=== PATIENT | female | born 1940 | race Caucasian/White ===

== ENCOUNTER 2019-02-22 10:33 | Inpatient (IN) | payer BC, MEDICARE ==
--- NOTE | 2019-02-22 11:27 | XR ---
EXAMINATION TYPE: XR Hip Complete LT DATE OF EXAM: 02/22/2019 CLINICAL HISTORY: Left hip pain after injury TECHNIQUE: AP and frogleg views of the left hip are obtained. COMPARISON: None. FINDINGS: There is a subcapital left femoral neck fracture with very minimal impaction (overlap of 1 mm) and no comminution evident. There is 1 mm lateral displacement of the distal fracture fragment. Diffuse osseous demineralization is seen. Extensive atherosclerosis. IMPRESSION: Acute subcapital left femoral neck fracture with minimal impaction and lateral displaceme nt.
[2019-02-22] MEDS ORDERED: ONDANSETRON 4 MG/2 ML VIAL IVP PRN (11:49)
[2019-02-22] MEDS ORDERED: NALOXONE 0.4 MG/ML 1 ML VIAL IV PRN (11:49)
[2019-02-22] MEDS ORDERED: ACETAMINOPHEN TAB 325 MG TAB PO PRN (11:49)
[2019-02-22] MEDS ORDERED: traMADol 50 MG TAB PO PRN (11:49)
--- NOTE | 2019-02-22 11:55 | ED ---
Extremity Problem HPI - General Chief complaint: Extremity Problem,Nontraumatic Stated complaint: hip pain Time Seen by Provider: 02/22/19 10:45 Source: patient Mode of arrival: EMS - History of Present Illness Initial comments: Patient is a 78-year-old female, with multiple comorbidities including A. fib, presenting to the emergency department via EMS with complaints of left hip pain and has been increasing for 2 weeks. Patient denies any trauma or falls. Denies any previous surgeries. Patient did receive 100 g of fentanyl in the EMS prior to arrival. She has no other complaints at this time. No chest pain, shortness of breath, nausea, vomiting. Upon arrival to the ER, patient's BP is elevated at 171/85, rest of vitals normal. - Related Data Home Medications Medication Instructions Recorded Confirmed Allopurinol [Zyloprim] 300 mg PO DAILY 08/27/14 08/29/15 Aspirin 81 mg PO DAILY 08/27/14 08/29/15 Fluticasone/Salmeterol [Advair 1 inhalation PO BID 08/27/14 08/29/15 500-50 Diskus] Furosemide [Lasix] 40 mg PO DAILY 08/27/14 08/29/15 Levothyroxine Sodium [Synthroid] 50 mcg PO DAILY 08/27/14 08/29/15 Losartan [Cozaar] 50 mg PO DAILY 08/27/14 08/29/15 Medroxyprogesterone Acetate 10 mg PO DAILY 08/27/14 08/29/15 [Provera] Potassium Chloride [Klor-Con 10] 1 tab PO HS 08/27/14 08/29/15 Verapamil [Isoptin] 80 mg PO TID 08/27/14 08/29/15 metFORMIN HCL [Glucophage] 500 mg PO BID 08/27/14 08/29/15 Ipratropium-Albuterol Nebulize 3 ml INHALATION TID PRN 12/28/14 08/29/15 [Duoneb 0.5 mg-3 mg/3 ml Soln] Previous Rx's Medication Instructions Recorded Acetaminophen-Codeine 300-30mg 1 - 2 tab PO Q6H PRN #40 tablet 08/29/15 [Tylenol #3] Clindamycin HCl 300 mg PO Q12HR #20 cap 08/29/15 Omeprazole [PriLOSEC] 20 mg PO AC-BID #60 cap 08/29/15 Allergies Allergy/AdvReac Type Severity Reaction Status Date / Time cephalexin monohydrate Allergy Rash/Hives Verified 02/22/19 10:44 [From Keflex] adhesive tape AdvReac Rash/Hives Verified 02/22/19 10:44 Review of Systems ROS Statement: Those systems with pertinent positive or pertinent negative responses have been documented in the HPI. ROS Other: All systems not noted in ROS Statement are negative. Past Medical History Past Medical History: Atrial Fibrillation, Cancer, COPD, Diabetes Mellitus, Deep Vein Thrombosis (DVT), Hypertension, Osteoarthritis (OA), Skin Disorder, Sleep Apnea/CPAP/BIPAP, Thyroid Disorder Additional Past Medical History / Comment(s): Hx. of wound rt leg, hx vulvar cancer, gout. History of Any Multi-Drug Resistant Organisms: MRSA Date of last positivie culture/infection: 2011 MDRO Source:: rt leg wound Past Surgical History: Appendectomy, Cholecystectomy, Tonsillectomy Additional Past Surgical History / Comment(s): tubal , Colonoscopy, D&C. Past Anesthesia/Blood Transfusion Reactions: Postoperative Nausea & Vomiting (PONV) Past Psychological History: No Psychological Hx Reported Smoking Status: Former smoker Past Alcohol Use History: None Reported Past Drug Use History: None Reported - Past Family History Mother Family Medical History: Cancer Additional Family Medical History / Comment(s): colon Father Family Medical History: Cancer Additional Family Medical History / Comment(s): skin General Exam - General Exam Comments Initial Comments: GENERAL: Disheveled, resting comfortably in bed, morbidly obese. HEAD: Atraumatic, normocephalic. EYES: Pupils equal round and reactive to light, extraocular movements intact, sclera anicteric, conjunctiva are normal. ENT: Nares patent, oropharynx clear without exudates. Moist mucous membranes. NECK: Normal range of motion, supple without lymphadenopathy or JVD. LUNGS: Breath sounds clear to auscultation bilaterally and equal. No wheezes rales or rhonchi. HEART: Regular rate and rhythm without murmurs, rubs or gallops. ABDOMEN: Soft, nontender, normoactive bowel sounds. No guarding, no rebound. No masses appreciated. : Deferred EXTREMITIES: Pain with palpation of the anterior and lateral left hip. Decreased range of motion secondary to pain. NEUROLOGICAL: Cranial nerves II through XII grossly intact. Normal speech PSYCH: Normal mood, normal affect. SKIN: Warm, Dry, normal turgor, no rashes or lesions noted. Course Vital Signs 02/22/19 02/22/19 02/22/19 10:39 12:24 12:46 Temperature 97.9 F Pulse Rate 98 105 H 105 H Respiratory 22 18 18 Rate Blood Pressure 171/85 166/104 175/91 O2 Sat by Pulse 97 98 98 Oximetry Medical Decision Making - Medical Decision Making Patient is a 78-year-old female presenting with left hip pain has been increasing over 2 weeks. Patient denies any injuries or falls. X-rays reveal an acute subcapital left femoral neck fracture with minimal impaction and lateral displacement. Case is discussed with Dr. Regalado. Labwork pending at this time. EKG shows A. fib with RVR. Patient will be admitted under Dr. Luz Elena landis with orthopedic consult. - Lab Data Result diagrams: 02/22/19 12:34 02/22/19 12:34 - EKG Data EKG Comments: Ventricular rate 107, QTC 432, QRS duration 86. A. fib with RVR. Nonspecific ST abnormalities probably digitalis effect Disposition Clinical Impression: Fracture of femoral neck, left Disposition: ADMITTED IP TO THIS [facility] Condition: Fair Is patient prescribed a controlled substance at d/c from ED?: No Decision Date: 02/22/19 Decision Time: 11:52
[2019-02-22] MEDS ORDERED: SODIUM CHLORIDE 0.9% 1,000 ML IV STA (12:22)
[2019-02-22] MEDS: MORPHINE SULFATE 4 MG/ML SYRINGE IV PRN ×2 (12:32→15:43)
[2019-02-22 12:45] LABS: Basophils % (A) 0 %; Eosinophils # (A) 0.1 k/uL (0-0.7); Eosinophils % (A) 1 %; HCT 45.7 % (34.0-46.0); HGB 14.8 gm/dL (11.4-16.0); Lymphocytes # (A) 0.5 k/uL (1.0-4.8); Lymphocytes % (A) 5 %; MCH 31.9 pg (25.0-35.0); MCHC 32.3 g/dL (31.0-37.0); MCV 98.8 fL (80.0-100.0); Mean Platelet Volume 7.4; Monocytes # (A) 0.5 k/uL (0-1.0); Monocytes % (A) 5 %; Neutrophils # (A) 9.5 k/uL (1.3-7.7); Neutrophils % (A) 88 %; Platelet Count 188 k/uL (150-450); RBC 4.63 m/uL (3.80-5.40); RDW 13.1 % (11.5-15.5); WBC 10.7 k/uL (3.8-10.6)
[2019-02-22] MEDS ORDERED: LOSARTAN 50 MG TAB PO STA (12:48)
[2019-02-22] MEDS ORDERED: VERAPAMIL 80 MG TAB PO STA (12:48)
[2019-02-22 12:55] LABS: Calcium 10.2 mg/dL (8.4-10.2); Magnesium 2.2 mg/dL (1.6-2.3); Phosphorus 3.2 mg/dL (2.5-4.5); Potassium 4.2 mmol/L (3.5-5.1); Total Bilirubin 0.5 mg/dL (0.2-1.3); Total Protein 6.8 g/dL (6.3-8.2)
[2019-02-22 13:00] LABS: INR 0.9 (<1.2); Prothrombin Time 10.1 sec (9.0-12.0)
[2019-02-22 13:05] LABS: Partial Thromboplastin Time 19.6 sec (22.0-30.0)
--- NOTE | 2019-02-22 13:07 | XR ---
EXAMINATION TYPE: XR chest 1V portable DATE OF EXAM: 02/22/2019 COMPARISON: 08/19/2015 HISTORY: Weakness TECHNIQUE: Single frontal view of the chest is obtained. FINDINGS: There is no focal air space opacity, pleural effusion, or pneumothorax seen. Interstitial prominence is chronic. Right hemidiaphragm elevation is also chronic. The cardiac silhouette size is enlarged, likely exaggerated by technique. The osseous structures are intact. IMPRESSION: Somewhat suboptimal exam with chronic findings. No acute process seen.
[2019-02-22] MEDS ORDERED: METOPROLOL TARTRATE 25 MG TAB PO SCH (14:00)
[2019-02-22 16:43] LABS: Appearance,Urine Cloudy (Clear); Bacteria,Urine Moderate /hpf; Bilirubin,Urine Negative (Negative); Blood,Urine Large (Negative); Color,Urine Yellow; Glucose,Urine (UA) Negative (Negative); Ketones,Urine Negative (Negative); Leukocyte Esterase,Urine Large (Negative); Nitrite,Urine Positive (Negative); Protein,Urine 1+ (Negative); RBC,Urine 56 /hpf (0-5); Specific Gravity,Urine 1.009 (1.001-1.035); Urobilinogen,Urine <2.0 mg/dL (<2.0); WBC,Urine >182 /hpf (0-5)
[2019-02-22 17:13] LABS: Glucose,Whole Blood 129 mg/dL (75-99)
--- NOTE | 2019-02-22 18:02 | P.CNOR ---
History of Present Illness - [facility] Consult date: 02/22/19 History of present illness: The patient is a very pleasant 78-year-old female with multiple medical problems including diabetes, atrial fibrillation, and extreme morbid obesity with a BMI of 60 who presented to our ER this morning with a month and a half of hip pain and no trauma. Due to her multiple medical comorbidities, extreme obesity, and no antecedent trauma she was admitted to internal medicine. At the time of my evaluation she reports a little over a month of left hip pain that has gotten significantly worse over the last 2 weeks. She actually had an appointment to see my partner Dr. Azar Shahid regarding her left hip pain next week. This morning her pain became so severe that she could no longer bear weight. She denies any history of trauma. She does have a history of esophageal cancer but states this is been previously treated. At the time of my evaluation she is complaining of isolated hip and groin pain. Past Medical History Past Medical History: Atrial Fibrillation, Cancer, COPD, Diabetes Mellitus, Deep Vein Thrombosis (DVT), Hypertension, Osteoarthritis (OA), Skin Disorder, Sleep Apnea/CPAP/BIPAP, Thyroid Disorder Additional Past Medical History / Comment(s): Hx. of wound rt leg, hx vulvar cancer, gout. History of Any Multi-Drug Resistant Organisms: MRSA Year Discovered:: 2011 MDRO Source:: rt leg wound Past Surgical History: Appendectomy, Cholecystectomy, Tonsillectomy Additional Past Surgical History / Comment(s): tubal , Colonoscopy, D&C. Past Anesthesia/Blood Transfusion Reactions: Postoperative Nausea & Vomiting (PONV) Past Psychological History: No Psychological Hx Reported Smoking Status: Former smoker Past Alcohol Use History: None Reported Past Drug Use History: None Reported - Past Family History Mother Family Medical History: Cancer Additional Family Medical History / Comment(s): colon Father Family Medical History: Cancer Additional Family Medical History / Comment(s): skin Medications and Allergies Home Medications Medication Instructions Recorded Confirmed Type Allopurinol [Zyloprim] 300 mg PO DAILY 08/27/14 02/22/19 History Aspirin 81 mg PO DAILY 08/27/14 02/22/19 History Furosemide [Lasix] 40 mg PO DAILY 08/27/14 02/22/19 History Losartan [Cozaar] 50 mg PO DAILY 08/27/14 02/22/19 History Potassium Chloride [Klor-Con 10] 10 meq PO DAILY 08/27/14 02/22/19 History Verapamil [Isoptin] 80 mg PO QAM 08/27/14 02/22/19 History metFORMIN HCL [Glucophage] 500 mg PO BID 08/27/14 02/22/19 History Ergocalciferol (Vitamin D2) 50,000 unit PO CANSECO 02/22/19 02/22/19 History [Drisdol] Fluticasone/Salmeterol [Advair 1 puff INHALATION RT-BID 02/22/19 02/22/19 History 500-50 Diskus] Levothyroxine Sodium [Synthroid] 75 mcg PO DAILY 02/22/19 02/22/19 History Verapamil [Isoptin] 80 mg PO HS PRN 02/22/19 02/22/19 History Allergies Allergy/AdvReac Type Severity Reaction Status Date / Time adhesive tape Allergy Rash/Hives Verified 02/22/19 15:38 cephalexin monohydrate Allergy Rash/Hives Verified 02/22/19 15:38 [From Keflex] Physical Examination The patient is resting comfortably in bed. She is in no apparent distress. She can straight nonlabored breathing. She is morbidly obese. A focused examination of the patient's left leg shows no significant deformity, but her leg is extremely obese. She has thick, woody skin distally consistent with chronic venous stasis. There are no open wounds or active ulcers. There are no open wounds or pressure sores over the lateral aspect of her left hip. Results X-rays of the pelvis and hip are somewhat obscured due to the patient's size but show an age indeterminate femoral neck fracture. There appears to be some degenerative changes within the hip. - Labs Labs: Abnormal Lab Results - Last 24 Hours (Table) 02/22/19 02/22/19 02/22/19 Range/Units 12:34 12:34 12:34 WBC 10.7 H (3.8-10.6) k/uL Neutrophils # 9.5 H (1.3-7.7) k/uL Lymphocytes # 0.5 L (1.0-4.8) k/uL APTT 19.6 L (22.0-30.0) sec Carbon Dioxide 21 L (22-30) mmol/L BUN 28 H (7-17) mg/dL Glucose 154 H (74-99) mg/dL POC Glucose (mg/dL) (75-99) mg/dL Alkaline Phosphatase 177 H (38-126) U/L Urine Appearance (Clear) Urine Protein (Negative) Urine Blood (Negative) Urine Nitrite (Negative) Ur Leukocyte Esterase (Negative) Urine RBC (0-5) /hpf Urine WBC (0-5) /hpf Urine WBC Clumps (None) /hpf Urine Bacteria (None) /hpf 02/22/19 02/22/19 Range/Units 15:20 17:06 WBC (3.8-10.6) k/uL Neutrophils # (1.3-7.7) k/uL Lymphocytes # (1.0-4.8) k/uL APTT (22.0-30.0) sec Carbon Dioxide (22-30) mmol/L BUN (7-17) mg/dL Glucose (74-99) mg/dL POC Glucose (mg/dL) 129 H (75-99) mg/dL Alkaline Phosphatase (38-126) U/L Urine Appearance Cloudy H (Clear) Urine Protein 1+ H (Negative) Urine Blood Large H (Negative) Urine Nitrite Positive H (Negative) Ur Leukocyte Esterase Large H (Negative) Urine RBC 56 H (0-5) /hpf Urine WBC >182 H (0-5) /hpf Urine WBC Clumps Many H (None) /hpf Urine Bacteria Moderate H (None) /hpf H & H 02/22/19 Range/Units 12:34 Hgb 14.8 (11.4-16.0) gm/dL Hct 45.7 (34.0-46.0) % Coagulation 02/22/19 Range/Units 12:34 INR 0.9 (<1.2) Result Diagrams: 02/22/19 12:34 02/22/19 12:34 Assessment and Plan (1) Fracture of femoral neck, left Current Visit: Yes Status: Acute Code(s): S72.002A - FRACTURE OF UNSP PART OF NECK OF LEFT FEMUR, INIT SNOMED Code(s): 0711194 Plan: I met with the patient this evening to discuss her x-ray findings and treatment options. Since there is no antecedent trauma and she has multiple medical comorbidities I recommended further workup with a CAT scan of the left hip to rule out pathologic fracture and to better evaluate her current injury. We discussed that she will likely need a hemiarthroplasty of the left hip when she is medically cleared and the computed tomography scan has been completed. We will make her nothing by mouth this evening in the event that she is cleared and her computed tomography scan is completed by tomorrow afternoon. I briefly discussed potential risks and complications of surgery. She understands that she is at a much higher risk of having a perioperative complication due to her multiple medical problems and her extreme obesity. Time with Patient: Greater than 30
[2019-02-22] MEDS: metFORMIN 500 MG TAB PO SCH (18:37)
--- NOTE | 2019-02-22 19:05 | CT ---
EXAMINATION TYPE: CT hip LT wo con DATE OF EXAM: 02/22/2019 COMPARISON: None HISTORY: Left hip fx CT DLP: 1512.6 mGycm Automated exposure control for dose reduction was used. Multiple axial sections were obtained from the level of the mid ileum to the proximal shaft of the fe mur without contrast. There is impacted subcapital fracture of the left femur. There is some coxa vera deformity. There is no dislocation. There is osteopenia. Acetabulum appears intact. There is Chan catheter in the urinar y bladder. There is no evidence of pelvic mass. I see no focal bone destruction. IMPRESSION: Acute impacted subcapital fracture of the left femur. There is approximate 1.5 cm impaction.
[2019-02-22 20:49] LABS: Glucose,Whole Blood 107 mg/dL (75-99)
[2019-02-22] MEDS: LEVOFLOXACIN 500MG-D5W PMX 500 MG in DEXTROSE/WATER 1 100ML.BAG IVPB SCH (22:13)
[2019-02-23] MEDS: MORPHINE SULFATE 4 MG/ML SYRINGE IV PRN ×4 (00:13→15:46)
[2019-02-23] MEDS: LEVOTHYROXINE 75 MCG TAB PO SCH (05:32)
[2019-02-23] MEDS: metFORMIN 500 MG TAB PO SCH ×2 (05:32→18:18)
[2019-02-23 05:58] LABS: Glucose,Whole Blood 98 mg/dL (75-99)
--- NOTE | 2019-02-23 07:52 | HP ---
HISTORY AND PHYSICAL Jerilyn Britton is a 78-year-old female who had a history of left hip pain. This has been going on for approximately 6 weeks. She felt better and subsequently felt worse and then came into the ER as she was unable to move her hip because of pain. She had an x-ray done which showed evidence of a left intertrochanteric fracture and subsequently a CT scan of the hip, which showed an acute impacted subcapital fracture of the left femur. Patient is admitted for further evaluation and management. She denies any recent fever or chills. Denies any chest pain or shortness of breath. PAST MEDICAL HISTORY: Positive for atrial fibrillation, COPD, diabetes mellitus, DVT, osteoarthritis, obstructive sleep apnea, thyroid disorder, right leg wound, vulvar cancer, MRSA colonization, appendectomy, cholecystectomy, tonsillectomy, tubal , colonoscopy, D and C, obesity. FAMILY HISTORY: Positive for cancer in her mother in the form of colon cancer and skin cancer in her father. SOCIAL HISTORY: Patient is a former smoker. Does not drink alcohol excessively. MEDICATIONS: Prior to coming in: Verapamil, Klor-Con, Synthroid, Lasix, aspirin, metformin, Isoptin, Cozaar, Advair Diskus, ergocalciferol, and allopurinol. REVIEW OF SYSTEMS: Noncontributory. PHYSICAL EXAMINATION: Patient was lying in bed. She seemed fairly comfortable. She is not in any distress. Her respiratory rate is 20, pulse rate of 58, temperature 98.9, blood pressure 144/70, O2 saturation on room air is 95%. HEENT: Pupils are equal. No jugular venous distention. CHEST: Reveals decreased breath sounds. No clear wheeze. CARDIOVASCULAR SYSTEM: Reveals an S1, S2. ABDOMEN: Soft. There is no pedal edema. There is shortening of the left lower extremity. Her heart rate had been running in the 50s, but had been as low as 38 and as high as 105. Labs reveal a white count of 10.7, PT/INR of 0.9, PTT of 19.6, sodium 138, potassium 4.2, chloride 106, bicarb 29, BUN 28, creatinine 0.96. Urinalysis showed large blood, positive nitrite, large leukocyte esterases. IMPRESSION: 1. Left hip fracture. 2. Urinary tract infection. 3. Diabetes mellitus type 2. 4. Atrial fibrillation with bradycardia. At this point in time, would hold her rate-controlling medications until seen by Cardiology. Continue her on Cozaar. Keep her on GI and DVT prophylaxis. Continue metformin and start her on antibiotics in the form of Levaquin and have ID and Cardiology further evaluate this patient. Patient has been seen by Orthopedics and we appreciate their input. At this point in time, we will further evaluate her to ensure her stability for surgery for her hip fracture. Depending on how she does, we shall make further changes to her care. MMODL / IJN: [id number] /
[2019-02-23] MEDS: LOSARTAN 50 MG TAB PO SCH (09:31)
[2019-02-23] MEDS: FUROSEMIDE 40 MG TAB PO SCH (09:31)
[2019-02-23] MEDS: PANTOPRAZOLE 40 MG/10 ML VIAL IV SCH (09:32)
[2019-02-23] MEDS: POTASSIUM CHLORIDE ER 10 MEQ TAB.ER.PRT PO SCH (09:32)
--- NOTE | 2019-02-23 09:54 | P.CRDCN ---
History of Present Illness Consult date: 02/23/19 Requesting physician: Manuel Olivarez Reason for Consult (text): pre surgical clearance Chief complaint: Left leg pain History of present illness: This is a 78-year-old female with history of hypertension, diabetes, hyperlipidemia, obesity, paroxysmal atrial fibrillation, not on anticoagulation, history of prior DVT, osteoarthritis, obstructive sleep apnea, hypothyroidism, COPD, valvular cancer, history of MRSA, she states that she has seen Dr. Chaparro in the office in the past. She presented to the hospital with complaints of left hip pain. According to the patient for the past and experiencing pain in her left hip and her mobility has been decreasing significantly to the point where she could not walk. She scheduled an outpatient appointment with orthopedics next week but couldn't wait until that appointment because of her inability to walk and because of the pain. She came to the hospital for further evaluation and treatment. Her initial x-ray of the left hip on arrival here showed acute subcapital left femoral neck fracture with minimal impaction and lateral displacement. EKG showed atrial fibrillation with moderately rapid ventricular response. Chest x-ray was somewhat suboptimal with chronic findings, no acute process seen. CAT scan of the hip was also performed which revealed an acute impacted subcapital fracture of the left femur. Cardiology consultation was requested for preop clearance. Her blood pressure on arrival here 170/80 with a heart rate in the 90s low 100s, 97% on room air. White blood cell count 10.7, hemoglobin 14.8, platelet count 188. Sodium 138, potassium 4.2, BUN 28, creatinine 0.9. Alk phos 177, troponin 0.012. Urinalysis reveals a positive UTI. At the time of my examination this morning, patient is quite comfortable, she denies any recent angina, states that she does get short of breath but nothing more than her usual. Past Medical History Past Medical History: Atrial Fibrillation, Cancer, COPD, Diabetes Mellitus, Deep Vein Thrombosis (DVT), Hypertension, Osteoarthritis (OA), Skin Disorder, Sleep Apnea/CPAP/BIPAP, Thyroid Disorder Additional Past Medical History / Comment(s): Hx. of wound rt leg, hx vulvar cancer, gout. History of Any Multi-Drug Resistant Organisms: MRSA Date of last positivie culture/infection: 2011 MDRO Source:: rt leg wound Past Surgical History: Appendectomy, Cholecystectomy, Tonsillectomy Additional Past Surgical History / Comment(s): tubal , Colonoscopy, D&C. Past Anesthesia/Blood Transfusion Reactions: Postoperative Nausea & Vomiting (PONV) Past Psychological History: No Psychological Hx Reported Smoking Status: Former smoker Past Alcohol Use History: None Reported Past Drug Use History: None Reported - Past Family History Mother Family Medical History: Cancer Additional Family Medical History / Comment(s): colon Father Family Medical History: Cancer Additional Family Medical History / Comment(s): skin Medications and Allergies Home Medications Medication Instructions Recorded Confirmed Type Allopurinol [Zyloprim] 300 mg PO DAILY 08/27/14 02/22/19 History Aspirin 81 mg PO DAILY 08/27/14 02/22/19 History Furosemide [Lasix] 40 mg PO DAILY 08/27/14 02/22/19 History Losartan [Cozaar] 50 mg PO DAILY 08/27/14 02/22/19 History Potassium Chloride [Klor-Con 10] 10 meq PO DAILY 08/27/14 02/22/19 History Verapamil [Isoptin] 80 mg PO QAM 08/27/14 02/22/19 History metFORMIN HCL [Glucophage] 500 mg PO BID 08/27/14 02/22/19 History Ergocalciferol (Vitamin D2) 50,000 unit PO CANSECO 02/22/19 02/22/19 History [Drisdol] Fluticasone/Salmeterol [Advair 1 puff INHALATION RT-BID 02/22/19 02/22/19 History 500-50 Diskus] Levothyroxine Sodium [Synthroid] 75 mcg PO DAILY 02/22/19 02/22/19 History Verapamil [Isoptin] 80 mg PO HS PRN 02/22/19 02/22/19 History Allergies Allergy/AdvReac Type Severity Reaction Status Date / Time adhesive tape Allergy Rash/Hives Verified 02/22/19 15:38 cephalexin monohydrate Allergy Rash/Hives Verified 02/22/19 15:38 [From Keflex] Physical Exam Vitals: Vital Signs Temp Pulse Pulse Pulse Resp BP BP 02/23/19 04:00 98.2 F 65 18 135/69 02/23/19 03:11 53 L 62 02/22/19 23:17 53 L 62 18 138/72 02/22/19 19:52 98.9 F 53 L 58 L 20 144/70 01/01/20 17:31 98.2 F 53 L 53 L 20 151/64 02/22/19 16:00 38 L 16 02/22/19 15:30 98.1 F 40 L 14 117/74 02/22/19 14:06 98.2 F 80 16 167/81 02/22/19 12:46 105 H 18 175/91 02/22/19 12:24 105 H 18 166/104 02/22/19 10:39 97.9 F 98 22 171/85 Pulse Ox 02/23/19 04:00 97 02/23/19 03:11 02/22/19 23:17 96 02/22/19 19:52 95 02/22/19 17:31 94 L 02/22/19 16:00 02/22/19 15:30 95 02/22/19 14:06 98 02/22/19 12:46 98 02/22/19 12:24 98 02/22/19 10:39 97 Intake and Output 02/22/19 02/23/19 02/23/19 22:59 06:59 14:59 Intake Total 120 100 Output Total 300 500 Balance -180 100 -500 Intake: Intake, IV Titration 100 Amount Levofloxacin 500Mg-D5w 100 Pmx 500 mg In Dextrose/ Water 1 100ml.bag @ 100 mls/hr IVPB Q24H [facility] Rx#: [id number] Oral 120 Output: Urine 300 500 Other: Voiding Method Indwelling Catheter Indwelling Catheter # Voids 500 PHYSICAL EXAMINATION: GENERAL: 78 year old female in no acute distress at the time of my examination HEENT: Head is atraumatic, normocephalic. Pupils equal, round. Sclera anicteric. Conjunctiva are clear. Mucous membranes of the mouth are moist. Neck is supple. There is no elevated jugular venous pressure. No carotid bruit is heard. HEART EXAMINATION: Heart S1 and S2 irregularly irregular a systolic ejection murmur is heard at the base CHEST EXAMINATION: Lungs are clear to auscultation and precussion. No chest wall tenderness is noted on palpation or with deep breathing. ABDOMEN: Soft, obese, nontender. Bowel sounds are heard. No organomegaly noted. EXTREMITIES:[ 2+ peripheral pulses with trace evidence of peripheral edema chronic discoloration to bilateral lower extremities. NEUROLOGIC patient is awake, alert and oriented 3 . . Results 02/22/19 12:34 02/22/19 12:34 Cardiac Enzymes 02/22/19 02/22/19 Range/Units 12:34 12:34 AST 19 (14-36) U/L Troponin I <0.012 (0.000-0.034) ng/mL Coagulation 02/22/19 Range/Units 12:34 PT 10.1 (9.0-12.0) sec APTT 19.6 L (22.0-30.0) sec CBC 02/22/19 Range/Units 12:34 WBC 10.7 H (3.8-10.6) k/uL RBC 4.63 (3.80-5.40) m/uL Hgb 14.8 (11.4-16.0) gm/dL Hct 45.7 (34.0-46.0) % Plt Count 188 (150-450) k/uL Comprehensive Metabolic Panel 02/22/19 Range/Units 12:34 Sodium 138 (137-145) mmol/L Potassium 4.2 (3.5-5.1) mmol/L Chloride 106 (98-107) mmol/L Carbon Dioxide 21 L (22-30) mmol/L BUN 28 H (7-17) mg/dL Creatinine 0.96 (0.52-1.04) mg/dL Glucose 154 H (74-99) mg/dL Calcium 10.2 (8.4-10.2) mg/dL AST 19 (14-36) U/L ALT 14 (4-34) U/L Alkaline Phosphatase 177 H (38-126) U/L Total Protein 6.8 (6.3-8.2) g/dL Albumin 4.0 (3.5-5.0) g/dL Current Medications Generic Name Dose Route Start Last Admin Trade Name Freq PRN Reason Stop Dose Admin Acetaminophen 650 mg 02/22/19 11:49 Tylenol Tab PO Q6HR PRN Mild Pain or Fever > 100.5 Allopurinol 300 mg 02/23/19 09:00 Zyloprim PO DAILY [facility] Aspirin 81 mg 02/23/19 09:00 Aspirin PO DAILY [facility] Ergocalciferol 50,000 unit 02/26/19 09:00 Vitamin D2 PO CANSECO [facility] Furosemide 40 mg 02/23/19 09:00 Lasix PO DAILY [facility] Heparin Sodium (Porcine) 5,000 unit 02/23/19 21:28 Heparin SQ Q12HR [facility] Levofloxacin 500 mg/ IV 100 mls @ 100 mls/hr 02/22/19 22:00 02/22/19 22:13 Solution IVPB 100 mls/hr Q24H [facility] Administration Levothyroxine Sodium 75 mcg 02/23/19 06:30 02/23/19 05:32 Synthroid PO Not Given DAILY@0630 [facility] Losartan Potassium 50 mg 02/23/19 09:00 Cozaar PO DAILY [facility] Metformin HCl 500 mg 02/22/19 18:00 02/23/19 05:32 Glucophage PO Not Given AC-BID [facility] Morphine Sulfate 4 mg 02/22/19 11:49 02/23/19 06:07 Morphine Sulfate (Inj) IV 4 mg Q4HR PRN Administration Severe Pain Naloxone HCl 0.2 mg 02/22/19 11:49 Narcan IV Q2M PRN Opioid Reversal Ondansetron HCl 4 mg 02/22/19 11:49 02/22/19 12:32 Zofran IVP 4 mg Q8HR PRN Administration Nausea And Vomiting Pantoprazole Sodium 40 mg 02/23/19 09:00 Protonix IV DAILY [facility] Potassium Chloride 10 meq 02/23/19 09:00 K-Dur 10 PO DAILY [facility] Tramadol HCl 50 mg 02/22/19 11:49 Ultram PO Q6H PRN Moderate Pain Intake and Output 02/22/19 02/23/19 02/23/19 22:59 06:59 14:59 Intake Total 120 100 Output Total 300 500 Balance -180 100 -500 Intake: Intake, IV Titration 100 Amount Levofloxacin 500Mg-D5w 100 Pmx 500 mg In Dextrose/ Water 1 100ml.bag @ 100 mls/hr IVPB Q24H [facility] Rx#: [id number] Oral 120 Output: Urine 300 500 Other: Voiding Method Indwelling Catheter Indwelling Catheter # Voids 500 02/22/19 12:34 02/22/19 12:34 EKG Interpretations (text) EKG shows atrial fibrillation with moderately rapid ventricular response Assessment and Plan Plan: Assessment and plan #1 left femur fracture #2 atrophic relation with rapid ventricular response, paroxysmal, not currently on anticoagulation #3 hypertension #4 diabetes #5 hyperlipidemia #6 positive UTI #7 history of DVT #8 prior history of smoking #9 obesity Plan We will obtain an echocardiogram with Doppler study. We'll also start the patient on a beta erin. I had a lengthy discussion with the patient regarding the importance of initiating anticoagulation post surgery, she is currently on heparin subcu twice a day. Following the surgery would recommend initiating Eliquis. Continue to follow along with you. DNP note has been reviewed, I agree with a documented findings and plan of care. Patient was seen and examined.
[2019-02-23] MEDS: METOPROLOL TARTRATE 25 MG TAB PO SCH ×2 (10:50→19:41)
--- NOTE | 2019-02-23 11:47 | P.PN ---
Subjective Progress Note Date: 02/23/19 This patient is a 78-year-old female with multiple medical problems including diabetes, atrial fibrillation, and extreme morbid obesity with a BMI of 60 who presented [facility] ER on 02/22/09 with a month and a half of hip pain and no trauma. X-rays of the left hip showed a femoral neck fracture. Due to her multiple medical comorbidities, extreme obesity, and no antecedent trauma she was admitted to internal medicine with a consult placed to orthopedic surgery for surgical intervention and treatment. The patient is currently awaiting medical clearance to undergo surgical fixation of her fracture. The patient is examined bedside this morning with Dr. Morrell. She complains of isolated pain in the left hip, otherwise she is doing well. She denies any new complaints today. Objective - Vital Signs Vital signs: Vital Signs Temp 98.5 F 02/23/19 08:45 Pulse 74 02/23/19 08:45 Resp 18 02/23/19 08:45 BP 128/66 02/23/19 08:45 Pulse Ox 94 L 02/23/19 08:45 Intake & Output 02/22/19 02/23/19 02/23/19 18:59 06:59 18:59 Intake Total 620 100 Output Total 300 500 Balance 320 100 -500 Weight 149.685 kg Intake: Intake, IV Titration 500 100 Amount Levofloxacin 500Mg-D5w 100 Pmx 500 mg In Dextrose/ Water 1 100ml.bag @ 100 mls/hr IVPB Q24H [facility] Rx#: [id number] Sodium Chloride 0.9% 1, 500 000 ml @ 999 mls/hr IV . Q1H1M [facility] Rx#:[id number] Oral 120 Output: Urine 300 500 Other: Voiding Method Indwelling Catheter Indwelling Catheter Indwelling Catheter # Voids 500 - Exam On examination, the patient is sitting up in bed in no apparent distress. She is alert and oriented 3. She is morbidly obese. On inspection of the left lower extremity, there are no open wounds or lacerations. There is tenderness to palpation of the right hip pain. Motor and sensory function appear to be intact of the left lower extremity. Left lower extremity is warm and well- perfused with brisk capillary refill. There is venous stasis of the bilateral lower extremities. - Labs CBC & Chem 7: 02/22/19 12:34 02/22/19 12:34 Labs: Abnormal Lab Results - Last 24 Hours (Table) 02/22/19 02/22/19 02/22/19 Range/Units 12:34 12:34 12:34 WBC 10.7 H (3.8-10.6) k/uL Neutrophils # 9.5 H (1.3-7.7) k/uL Lymphocytes # 0.5 L (1.0-4.8) k/uL APTT 19.6 L (22.0-30.0) sec Carbon Dioxide 21 L (22-30) mmol/L BUN 28 H (7-17) mg/dL Glucose 154 H (74-99) mg/dL POC Glucose (mg/dL) (75-99) mg/dL Alkaline Phosphatase 177 H (38-126) U/L Urine Appearance (Clear) Urine Protein (Negative) Urine Blood (Negative) Urine Nitrite (Negative) Ur Leukocyte Esterase (Negative) Urine RBC (0-5) /hpf Urine WBC (0-5) /hpf Urine WBC Clumps (None) /hpf Urine Bacteria (None) /hpf 02/22/19 02/22/19 02/22/19 Range/Units 15:20 17:06 20:47 WBC (3.8-10.6) k/uL Neutrophils # (1.3-7.7) k/uL Lymphocytes # (1.0-4.8) k/uL APTT (22.0-30.0) sec Carbon Dioxide (22-30) mmol/L BUN (7-17) mg/dL Glucose (74-99) mg/dL POC Glucose (mg/dL) 129 H 107 H (75-99) mg/dL Alkaline Phosphatase (38-126) U/L Urine Appearance Cloudy H (Clear) Urine Protein 1+ H (Negative) Urine Blood Large H (Negative) Urine Nitrite Positive H (Negative) Ur Leukocyte Esterase Large H (Negative) Urine RBC 56 H (0-5) /hpf Urine WBC >182 H (0-5) /hpf Urine WBC Clumps Many H (None) /hpf Urine Bacteria Moderate H (None) /hpf Microbiology - Last 24 Hours (Table) 02/22/19 15:20 Urine Culture - Preliminary Urine,Voided Assessment and Plan Assessment: Left femoral neck fracture Plan: - Clinical and imaging findings were discussed with the patient. Patient is currently awaiting medical clearance. We will plan on a left hip hemiarthroplasty tomorrow, pending medical clearance. She will again be made NPO at midnight. - Strict non-weight bearing of the left lower extremity. - Continue pain management. - Medical management per internal medicine. Patient seen with Dr. Morrell.
--- NOTE | 2019-02-23 11:58 | ECHOF ---
Referral Reason:clearance for surgery, was in afib MEASUREMENTS -------- HEIGHT: 152.4 cm WEIGHT: 154.2 kg BP: 135/69 RVIDd: 3.5 cm (< 3.3) IVSd: 1.3 cm (0.6 - 1.1) LVIDd: 4.0 cm (3.9 - 5.3) LVPWd: 1.5 cm (0.6 - 1.1) IVSs: 1.5 cm LVIDs: 4.1 cm LVPWs: 1.2 cm LA Diam: 4.0 cm (2.7 - 3.8) LAESV Index (A-L): 27.39 ml/m Ao Diam: 3.0 cm (2.0 - 3.7) AV Cusp: 2.0 cm (1.5 - 2.6) LA Diam: 4.3 cm (2.7 - 3.8) MV EXCURSION: 20.694 mm (> 18.000) MV EF SLOPE: 72 mm/s (70 - 150) EPSS: 0.4 cm MV E Praveen: 0.74 m/s MV DecT: 173 ms MV A Praveen: 0.78 m/s MV E/A Ratio: 0.94 RAP: 5.00 mmHg RVSP: 23.26 mmHg FINDINGS -------- Sinus rhythm. Morbid Obesity This was a techncally difficult study with suboptimal views, , Lumason utilized for enhancement of images. The left ventricular size is normal. There is mild concentric left ventricular hypertrophy. Overa ll left ventricular systolic function is normal with, an EF between 55 - 60 %. The right ventricle is normal in size. Normal LA size by volume 22+/-6 ml/m2. The right atrial size is normal. 5.0mg OF Lumason UTLIZED: 2 OR MORE WALL SEGMENTS NOT VISUALIZED. There is mild aortic valve sclerosis. There is no evidence of aortic regurgitation. Mild mitral annular calcification present. Mild mitral regurgitation is present. Mild tricuspid regurgitation present. Right ventricular systolic pressure is normal at < 35 mmHg. The right ventricular systolic pressure, as measured by Doppler, is 23.26mmHg. There is no pulmonic regurgitation present. The aortic root size is normal. Echo free space represents a pericardial fat pad. CONCLUSIONS -------- 1. Sinus rhythm. 2. Morbid Obesity 3. This was a techncally difficult study with suboptimal views, , Lumason utilized for enhancement of images. 4. The left ventricular size is normal. 5. There is mild concentric left ventricular hypertrophy. 6. Overall left ventricular systolic function is normal with, an EF between 55 - 60 %. 7. Normal LA size by volume 22+/-6 ml/m2. 8. 5.0mg OF Lumason UTLIZED: 2 OR MORE WALL SEGMENTS NOT VISUALIZED. 9. There is mild aortic valve sclerosis. 10. Mild mitral annular calcification present. 11. Mild mitral regurgitation is present. 12. Mild tricuspid regurgitation present. 13. Right ventricular systolic pressure is normal at < 35 mmHg. 14. There is no pulmonic regurgitation present. 15. Echo free space represents a pericardial fat pad. SENIOR MANAGER [employer]ITIONS: Jennie Morrow RDCS
[2019-02-23] MEDS: ASPIRIN 81 MG PO SCH (12:15)
[2019-02-23] MEDS: ALLOPURINOL 300 MG TAB PO SCH (12:15)
[2019-02-23 12:21] LABS: Glucose,Whole Blood 94 mg/dL (75-99)
--- NOTE | 2019-02-23 12:33 | PN ---
PROGRESS NOTE DATE OF SERVICE: 02/23/2019 Patient is a 78-year-old female who is seen lying in bed. He is awake and alert. Denies any pain. Denies any shortness of breath. Patient is hemodynamically stable, afebrile, in no acute distress. ON PHYSICAL EXAM: VITAL SIGNS: Temp 98.5, heart rate 74, respiratory rate 18, blood pressure is 128/66, O2 sats 94% on room air. HEENT. Head is normocephalic, atraumatic. Neck is supple. Trachea is midline. LUNGS: With diminished breath sounds. No clear rales or wheezes. HEART: S1, S2 are heard. Irregular, not tachycardic. ABDOMEN: Soft. Bowel sounds are positive. EXTREMITIES: With chronic lymphedema and vascular discoloration from chronic venous insufficiency. NEUROLOGIC: Patient is alert, oriented. LABS: No new labs to review. IMAGING: No new imaging to review. IMPRESSION: 1. Left hip fracture. 2. Urinary tract infection. 3. Diabetes mellitus type 2. 4. Atrial fibrillation. PLAN: Continue current medications, which have been reviewed. Cardiology consult for AFib. Continue GI and DVT prophylaxis. Continue antibiotics per Infectious Disease. Echocardiogram is pending. Add incentive spirometer with pulmonary hygiene and will continue to follow patient closely as plan is for patient to go to surgery to have repair of the left hip. MMODL / IJN: [id number] /
[2019-02-23 13:55] VITALS: BMI 60.3
--- NOTE | 2019-02-23 15:25 | P.CONS ---
<Shena Griffin - Last Filed: 02/23/19 15:06> History of Present Illness - Reason for Consult Consult date: 02/23/19 Wound to coccyx, UTI - History of Present Illness This is a 78-year-old female presented to the hospital due to hip pain on the left side without known injury and going on for couple weeks. She was scheduled to see orthopedics in the office next week but due to worsening pain and inability to bear weight, she was unable to wait until her appointment and presented to [facility] emergency center for evaluation. Left hip x-ray showed acute subcapital left femoral neck fracture with minimal impaction and lateral displacement. EKG showed atrial fibrillation with moderately rapid ventricular response. Chest x-ray was suboptimal with chronic findings, no acute process seen. CAT scan of the hip was also performed which revealed an acute impacted subcapital fracture of the left femur. Cardiology consultation was requested for preop clearance and orthopedic consult tentatively scheduled for left hemiarthroplasty tomorrow. White blood cell count 10.7, hemoglobin 14.8, platelet count 188. BUN 28, creatinine 0.9. Alk phos 177, troponin 0.012. Urinalysis reveals a positive UTI and patient was started on Levaquin. Patient also has stage III decubitus ulcers on bilateral buttocks, present on admission patient states that she has had these were possibly greater than 6 months, she states she is not really sure how long they have been there as she is not able to see her. She states she is unable to get up on the table when she sees Dr. reyna in the office. She states she does have occasional bleeding from "down there" is not sure of the source. The patient states that she was given a bed bath and does not want the wounds to be looked at at this time. Chan catheter has been placed. Her discharge plan is go to [facility] for subacute rehab at the time of discharge. Patient has been seen by cardiology and due to her paroxysmal atrial fibrillation, recommendations to start eliquis following surgery and patient was started on beta erin. A urine culture is in progress. Patient has been a [facility] patient in 2016 under the care of Dr. Chavez for venous stasis ulcers in the legs with history of recurrent MRSA infections. She was discharged February 2015. Note: Patient has history of laryngeal cancer under the care of Dr. Gonzalez prior to 2016 and history of hypertension, diabetes mellitus type II, hyperlipidemia, super morbid obesity with BMI of 60, paroxysmal atrial fibrillation, not on anticoagulation, history of prior DVT, osteoarthritis, obstructive sleep apnea, hypothyroidism, COPD, valvular cancer. Review of Systems Constitutional: Reports fatigue, Reports weakness, Denies anorexia, Denies poor appetite, Denies weight loss Eyes: denies blurred vision, denies pain Ears, nose, mouth and throat: Denies dysphagia, Denies headache, Denies mouth pain, Denies nasal congestion, Denies nasal discharge, Denies sore throat, Denies vertigo Cardiovascular: Denies chest pain, Denies dyspnea on exertion, Denies edema, Denies lightheadedness, Denies shortness of breath, Denies syncope Respiratory: Denies cough, Denies cough with sputum, Denies dyspnea, Denies excessive sputum, Denies hemoptysis, Denies home oxygen, Denies wheezing Gastrointestinal: Denies abdominal pain, Denies bloating, Denies diarrhea, Denies loss of appetite, Denies nausea, Denies vomiting Genitourinary: Denies dysuria, Denies hematuria, Denies urgency, Denies urinary frequency Musculoskeletal: Reports gait dysfunction, Reports muscle weakness, Denies frequent falls, Denies myalgias Musculoskeletal: left: hip pain Integumentary: Reports wounds, Denies pruritus, Denies rash Neurological: Reports gait dysfunction, Denies change in mentation, Denies confusion, Denies numbness, Denies weakness Psychiatric: Denies anxiety, Denies depression Endocrine: Denies fatigue, Denies weight change Past Medical History Past Medical History: Atrial Fibrillation, Cancer, COPD, Diabetes Mellitus, Deep Vein Thrombosis (DVT), Hypertension, Osteoarthritis (OA), Skin Disorder, Sleep Apnea/CPAP/BIPAP, Thyroid Disorder Additional Past Medical History / Comment(s): Hx. of wound rt leg, hx vulvar cancer, gout. History of Any Multi-Drug Resistant Organisms: MRSA Year Discovered:: 2011 MDRO Source:: rt leg wound Past Surgical History: Appendectomy, Cholecystectomy, Tonsillectomy Additional Past Surgical History / Comment(s): tubal , Colonoscopy, D&C. Past Anesthesia/Blood Transfusion Reactions: Postoperative Nausea & Vomiting (PO NV) Past Psychological History: No Psychological Hx Reported Smoking Status: Former smoker Past Alcohol Use History: None Reported Additional Past Alcohol Use History / Comment(s): Patient was a smoker and quit 40 years ago. She denies any marijuana, street drug or alcohol use. She currently lives at home with her oldest son and grandson. 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 Past Drug Use History: None Reported - Past Family History Mother Family Medical History: Cancer Additional Family Medical History / Comment(s): colon Father Family Medical History: Cancer Additional Family Medical History / Comment(s): skin Medications and Allergies Home Medications Medication Instructions Recorded Confirmed Type Allopurinol [Zyloprim] 300 mg PO DAILY 08/27/14 02/22/19 History Aspirin 81 mg PO DAILY 08/27/14 02/22/19 History Furosemide [Lasix] 40 mg PO DAILY 08/27/14 02/22/19 History Losartan [Cozaar] 50 mg PO DAILY 08/27/14 02/22/19 History Potassium Chloride [Klor-Con 10] 10 meq PO DAILY 08/27/14 02/22/19 History Verapamil [Isoptin] 80 mg PO QAM 08/27/14 02/22/19 History metFORMIN HCL [Glucophage] 500 mg PO BID 08/27/14 02/22/19 History Ergocalciferol (Vitamin D2) 50,000 unit PO CANSECO 02/22/19 02/22/19 History [Drisdol] Fluticasone/Salmeterol [Advair 1 puff INHALATION RT-BID 02/22/19 02/22/19 History 500-50 Diskus] Levothyroxine Sodium [Synthroid] 75 mcg PO DAILY 02/22/19 02/22/19 History Verapamil [Isoptin] 80 mg PO HS PRN 02/22/19 02/22/19 History Allergies Allergy/AdvReac Type Severity Reaction Status Date / Time adhesive tape Allergy Rash/Hives Verified 02/22/19 15:38 cephalexin monohydrate Allergy Rash/Hives Verified 02/22/19 15:38 [From Keflex] Physical Exam Vitals: Vital Signs Temp Pulse Pulse Resp BP Pulse Ox 02/23/19 11:55 98.2 F 58 L 18 129/77 95 02/23/19 08:45 98.5 F 74 18 128/66 94 L 02/23/19 04:00 98.2 F 65 18 135/69 97 02/23/19 03:11 53 L 62 02/22/19 23:17 53 L 62 18 138/72 96 02/22/19 19:52 98.9 F 53 L 58 L 20 144/70 95 02/22/19 17:31 98.2 F 53 L 53 L 20 151/64 94 L 02/22/19 16:00 38 L 16 02/22/19 15:30 98.1 F 40 L 14 117/74 95 Intake and Output 02/23/19 02/23/19 02/23/19 06:59 14:59 22:59 Intake Total 100 Output Total 1200 Balance 100 -1200 Intake: Intake, IV Titration 100 Amount Levofloxacin 500Mg-D5w 100 Pmx 500 mg In Dextrose/ Water 1 100ml.bag @ 100 mls/hr IVPB Q24H [facility] Rx#: [id number] Output: Urine 1200 Other: Voiding Method Indwelling Catheter Indwelling Catheter # Voids 500 Weight 149.685 kg Gen: This is a 78-year-old super morbidly obese female. Patient is resting in bed and appears to be comfortable. No acute distress is noted. HEENT: Head is atraumatic, normocephalic. Pupils equal, round. Sclerae is anicteric. Oral mucous membranes are moist. No thrush noted. NECK: Supple. No JVD. No lymphadenopathy. No thyromegaly. LUNGS: Clear to auscultation. No wheezes or rhonchi. No intercostal retractions. HEART: Irregular rate and rhythm. Systolic murmur. ABDOMEN: Morbidly obese. Soft. Bowel sounds are present. No masses. No tenderness. EXTREMITIES: No pedal edema. Chronic discoloration of the bilateral lower extremities. No open wounds. Buttocks: Exam deferred. Patient has bilateral stage III decubitus ulcers. Please see nursing documentation and photographs. NEUROLOGICAL: Patient is awake, alert and oriented x3. Cranial nerves 2 through 12 are grossly intact. Generalized weakness noted. Results CBC & Chem 7: 02/22/19 12:34 02/22/19 12:34 Labs: Abnormal Lab Results - Last 24 Hours (Table) 02/22/19 02/22/19 02/22/19 Range/Units 15:20 17:06 20:47 POC Glucose (mg/dL) 129 H 107 H (75-99) mg/dL Urine Appearance Cloudy H (Clear) Urine Protein 1+ H (Negative) Urine Blood Large H (Negative) Urine Nitrite Positive H (Negative) Ur Leukocyte Esterase Large H (Negative) Urine RBC 56 H (0-5) /hpf Urine WBC >182 H (0-5) /hpf Urine WBC Clumps Many H (None) /hpf Urine Bacteria Moderate H (None) /hpf Microbiology - Last 24 Hours (Table) 02/22/19 15:20 Urine Culture - Preliminary Urine,Voided Assessment and Plan Plan: This is a 78-year-old female presented to the hospital with pathologic fracture of the left hip along with bilateral buttock stage III decubitus ulcers, acute UTI, paroxysmal atrial fibrillation with RVR. Consult added for wound care team, wound culture, bone scan to rule out osteomyelitis. Wound culture is in progress. Patient is currently on Levaquin and will be evaluated. Continue supportive care. Further recommendations as patient progresses. The above dictated assessment and findings were discussed with Dr. Franklin. The impression and plan of care have been directed as dictated. Shena Griffin nurse practitioner acting as scribe for Dr. Franklin. <Esperanza Franklin - Last Filed: 02/24/19 13:13> Physical Exam Vitals: Vital Signs Temp Pulse Pulse Resp BP BP Pulse Ox 02/24/19 09:33 80 02/24/19 09:27 84 02/24/19 07:34 99.8 F H 80 18 156/72 91 L 02/24/19 04:00 99 F 89 18 132/72 94 L 02/24/19 03:15 100 02/23/19 23:11 95 18 170/72 92 L 02/23/19 20:00 101.1 F H 100 18 139/65 91 L 02/23/19 15:20 98.1 F 63 18 122/76 94 L Intake and Output 02/23/19 02/24/19 02/24/19 22:59 06:59 14:59 Intake Total 100 Output Total 2250 1300 Balance -2250 100 -1300 Intake: Intake, IV Titration 100 Amount Levofloxacin 500Mg-D5w 100 Pmx 500 mg In Dextrose/ Water 1 100ml.bag @ 100 mls/hr IVPB Q24H [facility] Rx#: [id number] Output: Urine 2250 1300 Other: Voiding Method Indwelling Catheter Indwelling Catheter Indwelling Catheter Results CBC & Chem 7: 02/22/19 12:34 02/24/19 09:10 Labs: Abnormal Lab Results - Last 24 Hours (Table) 02/23/19 02/24/19 02/24/19 Range/Units 20:11 06:18 09:10 BUN 24 H (7-17) mg/dL Glucose 114 H (74-99) mg/dL POC Glucose (mg/dL) 123 H 106 H (75-99) mg/dL 02/24/19 Range/Units 12:55 BUN (7-17) mg/dL Glucose (74-99) mg/dL POC Glucose (mg/dL) 119 H (75-99) mg/dL Microbiology - Last 24 Hours (Table) 02/23/19 20:42 Gram Stain - Preliminary Buttock Wound Culture - Preliminary 02/22/19 15:20 Urine Culture - Preliminary Urine,Voided Assessment and Plan Plan: 1-patient was seen and examined and PHYSICIAN SURGEON note was reviewed 2-patient with bilateral gluteal area stage II pressure ulcer currently with no evidence of any secondary cellulitis or any slough tissue who will recommend local wound care only with dry Aquacel silver dressing to be changed every 48 hours keep the area off the pressure 3-patient with a positive UA minimal urinary symptoms are likely symptomatically UTI in this patient who did have a history of cephalexin ALLERGY currently on oral Levaquin which should be continued adjusting antibiotic further on the basis of culture report We will follow on clinical condition and cultures to further adjust medication if needed Thank you for this consultation will follow this patient with you Time with Patient: Greater than 30
[2019-02-23 16:57] LABS: Glucose,Whole Blood 90 mg/dL (75-99)
[2019-02-23] MEDS: LEVOFLOXACIN 500MG-D5W PMX 500 MG in DEXTROSE/WATER 1 100ML.BAG IVPB SCH (19:41)
[2019-02-23] MEDS: HEPARIN SODIUM,PORCINE 5,000 UNIT/ML 1 ML VIAL SQ SCH (19:47)
[2019-02-23 20:13] LABS: Glucose,Whole Blood 123 mg/dL (75-99)
[2019-02-24] MEDS: LEVOTHYROXINE 75 MCG TAB PO SCH (05:55)
[2019-02-24] MEDS: metFORMIN 500 MG TAB PO SCH ×2 (05:55→17:20)
[2019-02-24 06:19] LABS: Glucose,Whole Blood 106 mg/dL (75-99)
[2019-02-24] MEDS: POTASSIUM CHLORIDE ER 10 MEQ TAB.ER.PRT PO SCH (07:50)
[2019-02-24] MEDS: LOSARTAN 50 MG TAB PO SCH (07:50)
[2019-02-24] MEDS: PANTOPRAZOLE 40 MG/10 ML VIAL IV SCH (07:50)
[2019-02-24] MEDS: METOPROLOL TARTRATE 25 MG TAB PO SCH ×2 (07:50→21:05)
[2019-02-24] MEDS: ALLOPURINOL 300 MG TAB PO SCH (07:50)
[2019-02-24] MEDS: FUROSEMIDE 40 MG TAB PO SCH (07:50)
[2019-02-24] MEDS: MORPHINE SULFATE 4 MG/ML SYRINGE IV PRN ×3 (07:56→19:11)
[2019-02-24] MEDS: BUDESONIDE 0.25 MG/2 ML NEBU INHALATION SCH ×2 (09:27→20:23)
[2019-02-24 10:23] LABS: Calcium 9.9 mg/dL (8.4-10.2); Phosphorus 3.4 mg/dL (2.5-4.5); Potassium 4.6 mmol/L (3.5-5.1)
[2019-02-24] MEDS: HEPARIN SODIUM,PORCINE 5,000 UNIT/ML 1 ML VIAL SQ SCH ×2 (10:35→21:04)
[2019-02-24] MEDS: ASPIRIN 81 MG PO SCH (10:35)
--- NOTE | 2019-02-24 11:35 | P.CONS ---
History of Present Illness - Reason for Consult Consult date: 02/24/19 Pressure ulceration to sacrum - History of Present Illness This is a 78-year-old patient who is being seen by wound care center for nonhealing ulceration related to pressure with fatty layer exposure to the bilateral buttocks. Patient states that she does not know how long the ulceration has been there. She has noticed for the last few months that she's had blood on her previous periodically. Patient has been seen in the wound care center previously for venous stasis ulcerations that have healed. At this time patient was brought into the hospital for a fracture to the right hip she was having increased pain at home. Patient was seen by infectious disease and ordered a wound culture and bone scan to rule out osteomyelitis. Patient also has a history of diabetes. Review of Systems Review Of Systems: Constitutional: No fever, no chills, no night sweats. No weight change. No weakness, fatigue or lethargy. No daytime sleepiness. Integumentary:reports wounds, no lesions. No rash or pruritus. No unusual bruising. No change in hair or nails. Past Medical History Past Medical History: Atrial Fibrillation, Cancer, COPD, Diabetes Mellitus, Deep Vein Thrombosis (DVT), Hypertension, Osteoarthritis (OA), Skin Disorder, Sleep Apnea/CPAP/BIPAP, Thyroid Disorder Additional Past Medical History / Comment(s): Hx. of wound rt leg, hx vulvar cancer, gout. History of Any Multi-Drug Resistant Organisms: MRSA Year Discovered:: 2011 MDRO Source:: rt leg wound Past Surgical History: Appendectomy, Cholecystectomy, Tonsillectomy Additional Past Surgical History / Comment(s): tubal , Colonoscopy, D&C. Past Anesthesia/Blood Transfusion Reactions: Postoperative Nausea & Vomiting (PONV) Past Psychological History: No Psychological Hx Reported Smoking Status: Former smoker Past Alcohol Use History: None Reported Additional Past Alcohol Use History / Comment(s): Patient was a smoker and quit 40 years ago. She denies any marijuana, street drug or alcohol use. She currently lives at home with her oldest son and grandson. 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 Past Drug Use History: None Reported - Past Family History Mother Family Medical History: Cancer Additional Family Medical History / Comment(s): colon Father Family Medical History: Cancer Additional Family Medical History / Comment(s): skin Medications and Allergies Home Medications Medication Instructions Recorded Confirmed Type Allopurinol [Zyloprim] 300 mg PO DAILY 08/27/14 02/22/19 History Aspirin 81 mg PO DAILY 08/27/14 02/22/19 History Furosemide [Lasix] 40 mg PO DAILY 08/27/14 02/22/19 History Losartan [Cozaar] 50 mg PO DAILY 08/27/14 02/22/19 History Potassium Chloride [Klor-Con 10] 10 meq PO DAILY 08/27/14 02/22/19 History Verapamil [Isoptin] 80 mg PO QAM 08/27/14 02/22/19 History metFORMIN HCL [Glucophage] 500 mg PO BID 08/27/14 02/22/19 History Ergocalciferol (Vitamin D2) 50,000 unit PO CANSECO 02/22/19 02/22/19 History [Drisdol] Fluticasone/Salmeterol [Advair 1 puff INHALATION RT-BID 02/22/19 02/22/19 History 500-50 Diskus] Levothyroxine Sodium [Synthroid] 75 mcg PO DAILY 02/22/19 02/22/19 History Verapamil [Isoptin] 80 mg PO HS PRN 02/22/19 02/22/19 History Allergies Allergy/AdvReac Type Severity Reaction Status Date / Time adhesive tape Allergy Rash/Hives Verified 02/22/19 15:38 cephalexin monohydrate Allergy Rash/Hives Verified 02/22/19 15:38 [From Keflex] Physical Exam Vitals: Vital Signs Temp Pulse Pulse Resp BP BP Pulse Ox 02/24/19 09:33 80 02/24/19 09:27 84 02/24/19 07:34 99.8 F H 80 18 156/72 91 L 02/24/19 04:00 99 F 89 18 132/72 94 L 02/24/19 03:15 100 02/23/19 23:11 95 18 170/72 92 L 02/23/19 20:00 101.1 F H 100 18 139/65 91 L 02/23/19 15:20 98.1 F 63 18 122/76 94 L 02/23/19 11:55 98.2 F 58 L 18 129/77 95 Intake and Output 02/23/19 02/24/19 02/24/19 22:59 06:59 14:59 Intake Total 100 Output Total 2249 1300 Balance -2249 100 -1300 Intake: Intake, IV Titration 100 Amount Levofloxacin 500Mg-D5w 100 Pmx 500 mg In Dextrose/ Water 1 100ml.bag @ 100 mls/hr IVPB Q24H [facility] Rx#: [id number] Output: Urine 2249 1300 Other: Voiding Method Indwelling Catheter Indwelling Catheter Indwelling Catheter Ulceration to left buttocks is approximately 0.8 x 0.5 x 0.1 cm no granulation noted to the wound bed, Slough and fibrin noted no tunneling or undermining noted. Serous drainage noted to site. Ulceration to right buttocks approximately 0.8 x 3.5 x 0.3 cm with fatty layer exposure, no tunneling or undermining noted, minimal granulation noted to wound bed, adherent Slough and exudate noted to wound bed, edge of the wound is rolled. Periwound shows excoriation Results CBC & Chem 7: 02/22/19 12:34 02/24/19 09:10 Labs: Abnormal Lab Results - Last 24 Hours (Table) 02/23/19 02/24/19 02/24/19 Range/Units 20:11 06:18 09:10 BUN 24 H (7-17) mg/dL Glucose 114 H (74-99) mg/dL POC Glucose (mg/dL) 123 H 106 H (75-99) mg/dL Microbiology - Last 24 Hours (Table) 02/23/19 20:42 Gram Stain - Preliminary Buttock Wound Culture - Preliminary 02/22/19 15:20 Urine Culture - Preliminary Urine,Voided Assessment and Plan (1) Pressure ulcer of sacral region, stage 2 Current Visit: Yes Status: Acute Code(s): L89.152 - PRESSURE ULCER OF SACRAL REGION, STAGE 2 SNOMED Code(s): 876378538 (2) Type 2 diabetes mellitus with other skin ulcer Current Visit: Yes Status: Acute Code(s): E11.622 - TYPE 2 DIABETES MELLITUS WITH OTHER SKIN ULCER; L98.499 - NON-PRESSURE CHRONIC ULCER OF SKIN OF SITES W UNSP SEVERITY SNOMED Code(s): 385454665 Plan: At this time the ulcerations are stage II unless the wound culture is positive at that time they will be considered a stage III. Cleanse wound with normal saline, apply honey gel, saline moistened gauze, and foam border dressing. Change dressing Wednesday. Work on offloading, turning every 2 hours as needed. Discussed with patient the importance of continued wound care after discharge. Patient was agreeable to see the wound care center upon discharge. Thank you kindly for the consultation any questions please contact the wound care center DNP note has been reviewed and discussed with Dr. Crockett and the impression and plan of care has been directed as dictated.
--- NOTE | 2019-02-24 11:41 | PN ---
PROGRESS NOTE DATE OF SERVICE: 02/24/2019 Patient is a 78-year-old female who is seen lying in bed, is awake and alert, does complain of feeling a bit more congested today with a low-grade temp. Patient states that her understanding is they are not going to do surgery on that left hip as patient is too high risk and the plan if surgery was decided on would be for a possible transfer to [facility] where more high risk type surgery could be performed. Patient is again low-grade temperature, hemodynamically stable, in no acute distress. PHYSICAL EXAM: VITAL SIGNS: Temperature is 99.8, heart rate is 80, respiratory rate is 18, blood pressure is 156/72, O2 saturation 91% on room air. HEENT: Head is normocephalic, atraumatic. Neck is supple. Trachea is midline. LUNGS: With decreased breath sounds to the bases and wheezy to the upper lobes anteriorly. HEART: S1, S2 are heard. Not tachycardic. ABDOMEN: Soft. Bowel sounds are heard. EXTREMITIES: With karina discoloration from venous insufficiency and trace edema. NEUROLOGIC: Patient is awake, alert, oriented. LABS: Sodium is 137, potassium is 4.6, chloride 104, CO2 is 26, anion gap is 7, BUN is 24, creatinine 0.95, glucose is 114, calcium is 9.9, phosphorus 3.4, magnesium is 2.0. Influenza A and B are not detected and no new imaging to review. IMPRESSION: 1. Left hip fracture. 2. Urinary tract infection. 3. Chronic obstructive pulmonary disease or asthma with acute exacerbation. 4. Wound on the coccyx. 5. Diabetes mellitus type 2. 6. Atrial fibrillation. Rate is currently controlled. PLAN: Continue current medications, which have been reviewed. Will add albuterol p.r.n. and Pulmicort 0.5 mg via nebulizer b.i.d. Continue incentive spirometry. Continue antibiotics and wound care per Infectious Disease and we will follow patient closely making further changes as necessary. MMODL / IJN: [id number] /
--- NOTE | 2019-02-24 12:18 | NM ---
EXAMINATION TYPE: NM bone 3 phase DATE OF EXAM: 02/24/2019 COMPARISON: CT left hip HISTORY: 78-year-old female pain along the left hip and femur with open sores at the proximal. Technique: Triple phase bone scintigraphy was performed following the injection of 23.2 mCi Tc 99m MD P. Immediate images and 3 hours post injection images acquired. Imaging was centered at the pelvis. FINDINGS: Flow images show no significant asymmetry. Pool images show some focal uptake along the midline, probably within the bladder and vasculature. Delayed images show Chan catheter in place. On the lateral images, no abnormal sacral or ischial tub erosity activity is seen. There is slight asymmetric uptake at the left intertrochanteric region. IMPRESSION: 1. Slightly asymmetric uptake along the left intertrochanteric region probably reflecting the patient 's known left femoral neck fracture. 2. No significant abnormal tracer activity seen on flow or pool images. 3. The lateral delayed images show no focal abnormal activity along the sacrum or ischial tuberositie s.
--- NOTE | 2019-02-24 12:26 | P.PN ---
Subjective Progress Note Date: 02/24/19 This is a 78-year-old female with history of hypertension, diabetes, hyperlipidemia, obesity, paroxysmal atrial fibrillation, not on anticoagulation, history of prior DVT, osteoarthritis, obstructive sleep apnea, hypothyroidism, COPD, valvular cancer, history of MRSA, she states that she has seen Dr. Chaparro in the office in the past. She presented to the hospital with complaints of left hip pain. According to the patient for the past and experiencing pain in her left hip and her mobility has been decreasing significantly to the point where she could not walk. She scheduled an outpatient appointment with orthopedics next week but couldn't wait until that appointment because of her inability to walk and because of the pain. She came to the hospital for further evaluation and treatment. Her initial x-ray of the left hip on arrival here showed acute subcapital left femoral neck fracture with minimal impaction and lateral displacement. EKG showed atrial fibrillation with moderately rapid ventricular response. Chest x-ray was somewhat suboptimal with chronic findings, no acute process seen. CAT scan of the hip was also performed which revealed an acute impacted subcapital fracture of the left femur. Cardiology consultation was requested for preop clearance. Her blood pressure on arrival here 170/80 with a heart rate in the 90s low 100s, 97% on room air. White blood cell count 10.7, hemoglobin 14.8, platelet count 188. Sodium 138, potassium 4.2, BUN 28, creatinine 0.9. Alk phos 177, troponin 0.012. Urinalysis reveals a positive UTI. At the time of my examination this morning, patient is quite comfortable, she denies any recent angina, states that she does get short of breath but nothing more than her usual. 02/24/2019 Patient was seen and examined this morning, we saw the patient in consultation yesterday for preoperative clearance and cleared the patient from our perspective to go for surgery. We did see her and examined her today, she still continues to have significant pain in her hip.echocardiogram with Doppler study revealed an ejection fraction of 55-60%.low-grade temperature this morning of 99.8.wound culture moderate gram-negative bacilli Objective - Vital Signs Vital signs: Vital Signs Temp 99.8 F H 02/24/19 07:34 Pulse 80 02/24/19 09:33 Resp 18 02/24/19 07:34 BP 156/72 02/24/19 07:34 Pulse Ox 91 L 02/24/19 07:34 Intake & Output 02/23/19 02/24/19 02/24/19 18:59 06:59 18:59 Intake Total 240 100 Output Total 3000 450 1300 Balance -2760 -350 -1300 Weight 149.685 kg Intake: Intake, IV Titration 100 Amount Levofloxacin 500Mg-D5w 100 Pmx 500 mg In Dextrose/ Water 1 100ml.bag @ 100 mls/hr IVPB Q24H [facility] Rx#: [id number] Oral 240 Output: Urine 3000 450 1300 Other: Voiding Method Indwelling Catheter Indwelling Catheter Indwelling Catheter # Voids 500 - Exam PHYSICAL EXAMINATION: GENERAL: 78 year old female in no acute distress at the time of my examination HEENT: Head is atraumatic, normocephalic. Pupils equal, round. Sclera anicteric. Conjunctiva are clear. Mucous membranes of the mouth are moist. Neck is supple. There is no elevated jugular venous pressure. No carotid bruit is heard. HEART EXAMINATION: Heart S1 and S2 irregularly irregular a systolic ejection murmur is heard at the base CHEST EXAMINATION: Lungs are clear to auscultation and precussion. No chest wall tenderness is noted on palpation or with deep breathing. ABDOMEN: Soft, obese, nontender. Bowel sounds are heard. No organomegaly noted. EXTREMITIES:[ 2+ peripheral pulses with trace evidence of peripheral edema chronic discoloration to bilateral lower extremities.significant pain in the left hip area NEUROLOGIC patient is awake, alert and oriented 3 . - Labs CBC & Chem 7: 02/22/19 12:34 02/24/19 09:10 Labs: Abnormal Lab Results - Last 24 Hours (Table) 02/23/19 02/24/19 02/24/19 Range/Units 20:11 06:18 09:10 BUN 24 H (7-17) mg/dL Glucose 114 H (74-99) mg/dL POC Glucose (mg/dL) 123 H 106 H (75-99) mg/dL Microbiology - Last 24 Hours (Table) 02/23/19 20:42 Gram Stain - Preliminary Buttock Wound Culture - Preliminary 02/22/19 15:20 Urine Culture - Preliminary Urine,Voided Assessment and Plan Plan: Assessment and plan #1 left femur fracture #2 atrophic relation with rapid ventricular response, paroxysmal, not currently on anticoagulation #3 hypertension #4 diabetes #5 hyperlipidemia #6 positive UTI #7 history of DVT #8 prior history of smoking #9 obesity Plan from cardiology's perspective, patient is cleared from our standpoint to undergo surgery, if she is not going to have surgery however we do recommend to start the patient on oral anticoagulation in the form of Eliquis. DNP note has been reviewed, I agree with a documented findings and plan of care. Patient was seen and examined.
--- NOTE | 2019-02-24 12:55 | P.PN ---
Progress Note - Text Progress Note Date: 02/24/19 After careful review of the patient's multiple medical problems including extreme obesity with a BMI of over 60, sacral decubitus ulcers, and chronic venous insufficiency ulcers in her legs I questioned on whether or not surgical fixation would be in her best interest. I got second opinions from Dr. Shahid and Dr. Lang, 2 of my partners, regarding the patient's case. We all agree that she is at extremely high risk of having a complication from hemiarthroplasty and that it is not in her best interest to proceed with surgery. I would recommend an attempt at nonsurgical treatment with an control and physical therapy to assist with transfers. If the patient's family wishes to proceed with surgical intervention transfer to a tertiary referral center would be an option. We will continue to closely follow the patient while she is in the hospital.
[2019-02-24 12:56] LABS: Glucose,Whole Blood 119 mg/dL (75-99)
[2019-02-24 16:35] LABS: Glucose,Whole Blood 102 mg/dL (75-99)
--- NOTE | 2019-02-24 18:56 | PN ---
PROGRESS NOTE DATE OF SERVICE: 02/24/2019 REASON FOR FOLLOWUP: 1. Bilateral gluteal wound, pressure ulcer stage II. 2. UTI. INTERVAL HISTORY: The patient is currently afebrile. Patient is breathing comfortably. The patient denies having any chest pain. Did have some shortness of breath and cough. Not bringing up any sputum. Denies any pain to the gluteal area. No nausea, vomiting and no diarrhea. PHYSICAL EXAMINATION: Blood pressure 147/68 with a pulse of 55, temperature 98.5, she is 91% on room air. General description is an elderly female, lying in bed in no distress. Respiratory system: Unlabored breathing, clear to auscultation anteriorly. Heart S1, S2. Regular rate and rhythm. Abdomen soft, no tenderness. Extremities: No edema of the feet. LABS: BUN of 24, creatinine 0.95. Urine with gram-negative. DIAGNOSTIC IMPRESSION AND PLAN: 1. Patient admitted to the hospital with left hip pain in this patient recently diagnosed with left hip fracture. The patient also has bilateral gluteal wounds, which do not look deep or infected. Recommend local wound care with dry Aquacel Silver dressing. Keep the area off the pressure. 2. Urinary tract infection with multiple antibiotic allergies, currently covered with Levaquin. Urine showing a gram-negative. Antibiotic will be adjusted on the basis of the culture report. Continue supportive care. MMODL / IJN: [id number] /
[2019-02-24] MEDS ORDERED: LEVOFLOXACIN 250MG-D5W PMX 250 MG in DEXTROSE/WATER 1 50ML.BAG IVPB SCH (20:00)
[2019-02-24] MEDS: ALBUTEROL NEBULIZED 2.5 MG/3 ML INHALATION PRN (20:20)
[2019-02-24 20:24] LABS: Glucose,Whole Blood 109 mg/dL (75-99)
[2019-02-25 06:01] LABS: Glucose,Whole Blood 129 mg/dL (75-99)
[2019-02-25] MEDS: LEVOTHYROXINE 75 MCG TAB PO SCH (07:03)
[2019-02-25] MEDS: MORPHINE SULFATE 4 MG/ML SYRINGE IV PRN ×3 (07:07→21:57)
[2019-02-25] MEDS: PANTOPRAZOLE 40 MG/10 ML VIAL IV SCH (08:19)
[2019-02-25] MEDS: HEPARIN SODIUM,PORCINE 5,000 UNIT/ML 1 ML VIAL SQ SCH (08:19)
[2019-02-25] MEDS: FUROSEMIDE 40 MG TAB PO SCH (08:19)
[2019-02-25] MEDS: METOPROLOL TARTRATE 25 MG TAB PO SCH ×2 (08:19→21:57)
[2019-02-25] MEDS: POTASSIUM CHLORIDE ER 10 MEQ TAB.ER.PRT PO SCH (08:19)
[2019-02-25] MEDS: ASPIRIN 81 MG PO SCH (08:19)
[2019-02-25] MEDS: ALLOPURINOL 300 MG TAB PO SCH (08:19)
[2019-02-25] MEDS: LOSARTAN 50 MG TAB PO SCH (08:19)
[2019-02-25] MEDS: BUDESONIDE 0.25 MG/2 ML NEBU INHALATION SCH ×2 (08:56→21:00)
[2019-02-25] MEDS: APIXABAN 5 MG TAB PO SCH ×2 (10:49→21:57)
[2019-02-25] MEDS: metFORMIN 500 MG TAB PO SCH ×2 (11:08→17:27)
--- NOTE | 2019-02-25 11:28 | PN ---
PROGRESS NOTE DATE OF SERVICE: 02/25/2019 REASON FOR FOLLOWUP: 1. Bilateral gluteal pressure ulcer. 2. UTI. INTERVAL HISTORY: The patient is currently afebrile. The patient has been breathing comfortably. Still have pain to the left hip area, but no worsening. Denies having any chest pain or shortness of breath. Did have some cough. No sputum. No nausea, no vomiting. No abdominal pain, no diarrhea. PHYSICAL EXAMINATION: Blood pressure 130/75 with a pulse of 73, temperature 98.3, she is 95% on 2 L nasal cannula. General description is an elderly female, lying in bed in no distress. RESPIRATORY SYSTEM: Unlabored breathing, clear to auscultation anteriorly. HEART: S1, S2. Regular rate and rhythm. ABDOMEN: Soft, no tenderness. LABS: BUN of 24, creatinine 0.95. Urine showing a gram-negative, ID sensitivities pending. DIAGNOSTIC IMPRESSION AND PLAN: 1. Patient admitted to the hospital with weakness, left hip pain diagnosed with left hip fracture, being monitored closely by the Orthopedics. Did have a component of urinary tract infection with urine showing gram-negative, patient started with the Levaquin to continue, adjusting antibiotic based on culture report. 2. The patient's bilateral gluteal area, pressure ulcer stage III. No cellulitis. Local care with dry Aquacel Silver dressing, keep the area off the pressure. MMODL / IJN: [id number] /
[2019-02-25 11:58] LABS: Glucose,Whole Blood 122 mg/dL (75-99)
--- NOTE | 2019-02-25 12:49 | PN ---
PROGRESS NOTE Jerilyn Britton was seen again on 02/25/2019. She was thought not to be a candidate for surgery for her hip fracture by Orthopedics. She is lying in bed. Her pain is under control. She is not in any respiratory distress. On physical examination, respiratory rate is 18, pulse rate of 64, temperature 99, blood pressure 125/75, O2 saturation on 2 L by nasal cannula is 95%. HEENT is unremarkable. Chest reveals decreased breath sounds. Cardiovascular system reveals an S1, S2. Abdomen is soft. There is 1+ pedal edema. IMPRESSION: 1. Left hip fracture. 2. Urinary tract infection. 3. Bilateral sacral decubitus pressure ulcers. 4. Obesity. 5. Chronic obstructive pulmonary disease with asthma with acute exacerbation. 6. Diabetes mellitus. 7. Atrial fibrillation, rate controlled. At this point in time, would continue on the current medications, have her seen by Physical Medicine and Rehab. Patient would like to have a second opinion. Will have Dr. Jose Antonio Bender further evaluate the patient to see if she is a surgical candidate and what the benefits of surgery may be such that we can decide on how to manage her medical risk. Depending on how she does, we shall make further changes to her care. Appreciate input from Dr. Morrell from Orthopedic Surgery and Cardiology and ID as well. MMODL / IJN: [id number] /
--- NOTE | 2019-02-25 13:37 | P.PN ---
Subjective Progress Note Date: 02/25/19 This is a 78-year-old female with history of hypertension, diabetes, hyperlipidemia, obesity, paroxysmal atrial fibrillation, not on anticoagulation, history of prior DVT, osteoarthritis, obstructive sleep apnea, hypothyroidism, COPD, valvular cancer, history of MRSA, she states that she has seen Dr. Chaparro in the office in the past. She presented to the hospital with complaints of left hip pain. According to the patient for the past and experiencing pain in her left hip and her mobility has been decreasing significantly to the point where she could not walk. She scheduled an outpatient appointment with orthopedics next week but couldn't wait until that appointment because of her inability to walk and because of the pain. She came to the hospital for further evaluation and treatment. Her initial x-ray of the left hip on arrival here showed acute subcapital left femoral neck fracture with minimal impaction and lateral displacement. EKG showed atrial fibrillation with moderately rapid ventricular response. Chest x-ray was somewhat suboptimal with chronic findings, no acute process seen. CAT scan of the hip was also performed which revealed an acute impacted subcapital fracture of the left femur. Cardiology consultation was requested for preop clearance. Her blood pressure on arrival here 170/80 with a heart rate in the 90s low 100s, 97% on room air. White blood cell count 10.7, hemoglobin 14.8, platelet count 188. Sodium 138, potassium 4.2, BUN 28, creatinine 0.9. Alk phos 177, troponin 0.012. Urinalysis reveals a positive UTI. At the time of my examination this morning, patient is quite comfortable, she denies any recent angina, states that she does get short of breath but nothing more than her usual. 02/24/2019 Patient was seen and examined this morning, we saw the patient in consultation yesterday for preoperative clearance and cleared the patient from our perspective to go for surgery. We did see her and examined her today, she still continues to have significant pain in her hip.echocardiogram with Doppler study revealed an ejection fraction of 55-60%.low-grade temperature this morning of 99.8.wound culture moderate gram-negative bacilli. 02/25/2019 Patient seen and examined this morning, continues to complain of discomfort in her left hip area. He should had been evaluated by orthopedics, as well as some second opinion from Dr. Kem trevino who felt that it was not in the best interest to the patient undergo surgical fixation because of the multiple risk factors. The recommendation was to attempt a nonsurgical treatment with physical therapy. If the family wishes to proceed with surgical intervention, transfer to a tertiary referral center would be an option. She continues to be on heparin at this time, if they are not doing any surgeries for certain, patient will need to be reinitiated on Eliquis 5 mg one tablet by mouth twice a day Objective - Vital Signs Vital signs: Vital Signs Temp 99 F 02/25/19 11:06 Pulse 64 02/25/19 11:06 Resp 18 02/25/19 11:33 BP 125/75 02/25/19 11:06 Pulse Ox 95 02/25/19 11:06 Intake & Output 02/24/19 02/25/19 02/25/19 18:59 06:59 18:59 Output Total 9328 245 8612 Balance -1700 -880 -1000 Output: Urine 3199 169 7955 Other: Voiding Method Indwelling Catheter Indwelling Catheter Indwelling Catheter # Voids 1 - Exam PHYSICAL EXAMINATION: GENERAL: 78 year old female in no acute distress at the time of my e xamination HEENT: Head is atraumatic, normocephalic. Pupils equal, round. Sclera anicteric. Conjunctiva are clear. Mucous membranes of the mouth are moist. Neck is supple. There is no elevated jugular venous pressure. No carotid bruit is heard. HEART EXAMINATION: Heart S1 and S2 irregularly irregular a systolic ejection murmur is heard at the base CHEST EXAMINATION: Lungs are clear to auscultation and precussion. No chest wall tenderness is noted on palpation or with deep breathing. ABDOMEN: Soft, obese, nontender. Bowel sounds are heard. No organomegaly noted. EXTREMITIES:[ 2+ peripheral pulses with trace evidence of peripheral edema chronic discoloration to bilateral lower extremities.significant pain in the left hip area NEUROLOGIC patient is awake, alert and oriented 3 . - Labs CBC & Chem 7: 02/22/19 12:34 02/24/19 09:10 Labs: Abnormal Lab Results - Last 24 Hours (Table) 02/24/19 02/24/19 02/25/19 Range/Units 16:33 20:22 06:00 POC Glucose (mg/dL) 102 H 109 H 129 H (75-99) mg/dL 02/25/19 Range/Units 11:56 POC Glucose (mg/dL) 122 H (75-99) mg/dL Microbiology - Last 24 Hours (Table) 02/22/19 15:20 Urine Culture - Preliminary Urine,Voided Gram Neg Bacilli Assessment and Plan Plan: Assessment and plan #1 left femur fracture #2 atrophic relation with rapid ventricular response, paroxysmal, not currently on anticoagulation #3 hypertension #4 diabetes #5 hyperlipidemia #6 positive UTI #7 history of DVT #8 prior history of smoking #9 obesity Plan Patient will need to be on Eliquis 5 mg one tablet by mouth twice a day, if they are not proceeding with surgery. DNP note has been reviewed, I agree with a documented findings and plan of care. Patient was seen and examined.
--- NOTE | 2019-02-25 14:11 | P.PN ---
Subjective Progress Note Date: 02/25/19 Principal diagnosis: Left femoral neck fracture Patient is 78 yo female seen at bedside this morning. We are following her regarding her left femoral neck fracture. Dr. Morrell has felt it is not in her best interest to proceed with surgical intervention due to her comorbidities. She has no new complaints today. her pain is controlled. She has no new numbness or tingling, fevers, chills, chest pain, calf pain or shortness of breath. Objective - Vital Signs Vital signs: Vital Signs Temp 99 F 02/25/19 11:06 Pulse 64 02/25/19 11:06 Resp 18 02/25/19 11:33 BP 125/75 02/25/19 11:06 Pulse Ox 95 02/25/19 11:06 Intake & Output 02/24/19 02/25/19 02/25/19 18:59 06:59 18:59 Intake Total 240 Output Total 4860 976 4383 Balance -1700 -880 -760 Intake: Oral 240 Output: Urine 6150 011 8116 Other: Voiding Method Indwelling Catheter Indwelling Catheter Indwelling Catheter # Voids 1 - Exam On examination, the patient is sitting up in bed in no apparent distress. She is alert and oriented 3. On inspection of the left lower extremity, there are no open wounds or lacerations. ROM is not tested due to hip fracture. Motor and sensory function appear to be intact of the left lower extremity. Left lower extremity is warm and well-perfused with brisk capillary refill. The calf is soft and nontender. There is venous stasis of the bilateral lower extremities. 2+ DP pulse and less than 2 sec cap refill present - Constitutional General appearance: Present: no acute distress - Labs CBC & Chem 7: 02/22/19 12:34 02/24/19 09:10 Labs: Abnormal Lab Results - Last 24 Hours (Table) 02/24/19 02/24/19 02/25/19 Range/Units 16:33 20:22 06:00 POC Glucose (mg/dL) 102 H 109 H 129 H (75-99) mg/dL 02/25/19 Range/Units 11:56 POC Glucose (mg/dL) 122 H (75-99) mg/dL Microbiology - Last 24 Hours (Table) 02/22/19 15:20 Urine Culture - Preliminary Urine,Voided Gram Neg Bacilli Assessment and Plan (1) Fracture of femoral neck, left Narrative/Plan: Continue nonsurgical treatment with pain control, physical therapy to assist with transfers, DVT prophylaxis and medical management. Current Visit: Yes Status: Acute Priority: Medium Code(s): S72.002A - FRACTURE OF UNSP PART OF NECK OF LEFT FEMUR, INIT SNOMED Code(s): 4108386 Time with Patient: Less than 30
[2019-02-25] MEDS ORDERED: BISACODYL 10 MG SUPP RECTAL STA (14:21)
[2019-02-25] MEDS: ALBUTEROL NEBULIZED 2.5 MG/3 ML INHALATION PRN ×2 (16:31→21:00)
[2019-02-25 17:05] LABS: Glucose,Whole Blood 129 mg/dL (75-99)
[2019-02-25 20:35] LABS: Glucose,Whole Blood 158 mg/dL (75-99)
[2019-02-25] MEDS: LEVOFLOXACIN 250 MG TAB PO SCH (21:59)
[2019-02-26 06:18] LABS: Glucose,Whole Blood 134 mg/dL (75-99)
[2019-02-26 06:45] LABS: Basophils # (A) 0.2 k/uL (0-0.2); Basophils % (A) 2 %; Eosinophils # (A) 0.3 k/uL (0-0.7); Eosinophils % (A) 3 %; HCT 42.2 % (34.0-46.0); HGB 13.8 gm/dL (11.4-16.0); Lymphocytes # (A) 0.8 k/uL (1.0-4.8); Lymphocytes % (A) 8 %; MCH 32.7 pg (25.0-35.0); MCHC 32.6 g/dL (31.0-37.0); MCV 100.3 fL (80.0-100.0); Mean Platelet Volume 7.5; Monocytes # (A) 0.8 k/uL (0-1.0); Monocytes % (A) 8 %; Neutrophils # (A) 8.3 k/uL (1.3-7.7); Neutrophils % (A) 79 %; Platelet Count 248 k/uL (150-450); RBC 4.21 m/uL (3.80-5.40); RDW 13.1 % (11.5-15.5); WBC 10.6 k/uL (3.8-10.6)
[2019-02-26] MEDS: PANTOPRAZOLE 40 MG TABLET PO SCH (07:05)
[2019-02-26] MEDS: metFORMIN 500 MG TAB PO SCH ×2 (07:05→17:07)
[2019-02-26] MEDS: LEVOTHYROXINE 75 MCG TAB PO SCH (07:05)
[2019-02-26] MEDS: ALBUTEROL NEBULIZED 2.5 MG/3 ML INHALATION PRN ×3 (07:58→19:38)
[2019-02-26] MEDS: BUDESONIDE 0.25 MG/2 ML NEBU INHALATION SCH ×2 (07:58→19:37)
[2019-02-26] MEDS ORDERED: ERGOCALCIFEROL 50,000 UNIT CAP PO SCH (09:00)
[2019-02-26] MEDS: ASPIRIN 81 MG PO SCH (09:28)
[2019-02-26] MEDS: ALLOPURINOL 300 MG TAB PO SCH (09:28)
[2019-02-26] MEDS: METOPROLOL TARTRATE 25 MG TAB PO SCH ×2 (09:28→20:00)
[2019-02-26] MEDS: LOSARTAN 50 MG TAB PO SCH (09:28)
[2019-02-26] MEDS: FUROSEMIDE 40 MG TAB PO SCH (09:28)
[2019-02-26] MEDS: POTASSIUM CHLORIDE ER 10 MEQ TAB.ER.PRT PO SCH (09:29)
[2019-02-26] MEDS: APIXABAN 5 MG TAB PO SCH ×2 (09:29→20:00)
[2019-02-26] MEDS: MORPHINE SULFATE 4 MG/ML SYRINGE IV PRN ×3 (09:29→23:13)
[2019-02-26] MEDS: DOCUSATE 100 MG CAP PO SCH ×2 (09:29→20:00)
--- NOTE | 2019-02-26 11:46 | P.PN ---
Subjective Progress Note Date: 02/26/19 This is a 78-year-old female with history of hypertension, diabetes, hyperlipidemia, obesity, paroxysmal atrial fibrillation, not on anticoagulation, history of prior DVT, osteoarthritis, obstructive sleep apnea, hypothyroidism, COPD, valvular cancer, history of MRSA, she states that she has seen Dr. Chaparro in the office in the past. She presented to the hospital with complaints of left hip pain. According to the patient for the past and experiencing pain in her left hip and her mobility has been decreasing significantly to the point where she could not walk. She scheduled an outpatient appointment with orthopedics next week but couldn't wait until that appointment because of her inability to walk and because of the pain. She came to the hospital for further evaluation and treatment. Her initial x-ray of the left hip on arrival here showed acute subcapital left femoral neck fracture with minimal impaction and lateral displacement. EKG showed atrial fibrillation with moderately rapid ventricular response. Chest x-ray was somewhat suboptimal with chronic findings, no acute process seen. CAT scan of the hip was also performed which revealed an acute impacted subcapital fracture of the left femur. Cardiology consultation was requested for preop clearance. Her blood pressure on arrival here 170/80 with a heart rate in the 90s low 100s, 97% on room air. White blood cell count 10.7, hemoglobin 14.8, platelet count 188. Sodium 138, potassium 4.2, BUN 28, creatinine 0.9. Alk phos 177, troponin 0.012. Urinalysis reveals a positive UTI. At the time of my examination this morning, patient is quite comfortable, she denies any recent angina, states that she does get short of breath but nothing more than her usual. 02/24/2019 Patient was seen and examined this morning, we saw the patient in consultation yesterday for preoperative clearance and cleared the patient from our perspective to go for surgery. We did see her and examined her today, she still continues to have significant pain in her hip.echocardiogram with Doppler study revealed an ejection fraction of 55-60%.low-grade temperature this morning of 99.8.wound culture moderate gram-negative bacilli. 02/25/2019 Patient seen and examined this morning, continues to complain of discomfort in her left hip area. He should had been evaluated by orthopedics, as well as some second opinion from Dr. Kem trevino who felt that it was not in the best interest to the patient undergo surgical fixation because of the multiple risk factors. The recommendation was to attempt a nonsurgical treatment with physical therapy. If the family wishes to proceed with surgical intervention, transfer to a tertiary referral center would be an option. She continues to be on heparin at this time, if they are not doing any surgeries for certain, patient will need to be reinitiated on Eliquis 5 mg one tablet by mouth twice a day. 02/26/2019 Patient was seen and examined this morning, continues to complain of pain in her left hip but overall states that she feels better. The patient is quite insistent that she have surgery, the documentation from orthopedic surgery is to continue medical therapy. She's requesting to speak with orthopedics again regarding this matter. From the cardiac standpoint, she was reinitiated on her Eliquis because the plan was not to proceed with surgery. We will continue to follow the patient along with you. Objective - Vital Signs Vital signs: Vital Signs Temp 98.2 F 02/26/19 08:00 Pulse 88 02/26/19 08:13 Resp 19 02/26/19 08:00 BP 119/73 02/26/19 08:00 Pulse Ox 92 L 02/26/19 08:00 Intake & Output 02/25/19 02/26/19 02/26/19 18:59 06:59 18:59 Intake Total 480 480 Output Total 1300 350 Balance -820 -350 480 Intake: Oral 480 480 Output: Urine 1300 350 Other: Voiding Method Indwelling Catheter Indwelling Catheter - Exam PHYSICAL EXAMINATION: GENERAL: 78 year old female in no acute distress at the time of my examination HEENT: Head is atraumatic, normocephalic. Pupils equal, round. Sclera anicteric. Conjunctiva are clear. Mucous membranes of the mouth are moist. Neck is supple. There is no elevated jugular venous pressure. No carotid bruit is heard. HEART EXAMINATION: Heart S1 and S2 irregularly irregular a systolic ejection murmur is heard at the base CHEST EXAMINATION: Lungs are clear to auscultation and precussion. No chest wall tenderness is noted on palpation or with deep breathing. ABDOMEN: Soft, obese, nontender. Bowel sounds are heard. No organomegaly noted. EXTREMITIES:[ 2+ peripheral pulses with trace evidence of peripheral edema chronic discoloration to bilateral lower extremities.significant pain in the left hip area NEUROLOGIC patient is awake, alert and oriented 3 . - Labs CBC & Chem 7: 02/26/19 05:47 02/24/19 09:10 Labs: Abnormal Lab Results - Last 24 Hours (Table) 02/25/19 02/25/19 02/25/19 Range/Units 11:56 17:03 20:33 MCV (80.0-100.0) fL Neutrophils # (1.3-7.7) k/uL Lymphocytes # (1.0-4.8) k/uL POC Glucose (mg/dL) 122 H 129 H 158 H (75-99) mg/dL 02/26/19 02/26/19 Range/Units 05:47 06:17 MCV 100.3 H (80.0-100.0) fL Neutrophils # 8.3 H (1.3-7.7) k/uL Lymphocytes # 0.8 L (1.0-4.8) k/uL POC Glucose (mg/dL) 134 H (75-99) mg/dL Microbiology - Last 24 Hours (Table) 02/22/19 15:20 Urine Culture - Final Urine,Voided Citrobacter youngae 02/23/19 20:42 Gram Stain - Final Buttock Wound Culture - Final Assessment and Plan Plan: Assessment and plan #1 left femur fracture #2 atrophic relation with rapid ventricular response, paroxysmal, not currently on anticoagulation #3 hypertension #4 diabetes #5 hyperlipidemia #6 positive UTI #7 history of DVT #8 prior history of smoking #9 obesity Plan Patient will continue Eliquis 5 mg one tablet by mouth twice a day as at this time orthopedic surgery feels the patient is too high risk. She does with to discuss this further with orthopedic surgery again today. We will continue to follow DNP note has been reviewed, I agree with a documented findings and plan of care. Patient was seen and examined.
[2019-02-26 12:37] LABS: Glucose,Whole Blood 121 mg/dL (75-99)
--- NOTE | 2019-02-26 12:41 | PN ---
PROGRESS NOTE She was seen on 02/26/2019. She continues to have pain in the left hip area. PHYSICAL EXAMINATION: Her vitals are stable. She is afebrile. Her chest revealed decreased breath sounds. Occasional wheeze. Cardiovascular system is S1, S2. Abdomen is soft. There is 1+ pedal edema. IMPRESSION: 1. Left hip fracture for which we are awaiting a second opinion by Dr. Bender to further decide if she is a candidate for surgery. 2. Obesity. 3. Chronic obstructive pulmonary disease with asthma with acute exacerbation. 4. Urinary tract infection. 5. Decubitus ulcers. 6. Diabetes mellitus. 7. Atrial fibrillation with rate controlled. MMODL / IJN: [id number] /
[2019-02-26 17:33] LABS: Glucose,Whole Blood 100 mg/dL (75-99)
--- NOTE | 2019-02-26 19:22 | PN ---
PROGRESS NOTE DATE OF SERVICE: 02/26/2019 REASON FOR FOLLOWUP: 1. Bilateral gluteal stage II pressure ulcer. 2. Urinary tract infection. INTERVAL HISTORY: The patient is currently afebrile. The patient is breathing more comfortably. The patient denies having any chest pain, shortness of breath. Some occasional cough. No nausea, vomiting, abdominal pain or diarrhea. PHYSICAL EXAMINATION: Blood pressure 116/55 with a pulse of 78, temperature of 98. She is 97% on 2 L nasal cannula. General description is an elderly female lying in bed in no distress. Respiratory system: Unlabored breathing, clear to auscultation anteriorly. Heart S1, S2. Regular rate and rhythm. Abdomen soft, no tenderness. LABS: Hemoglobin is 13.8, white count 10.6. Urine has been finalized with Citrobacter sensitive to Levaquin, the patient is on. DIAGNOSTIC IMPRESSION AND PLAN: 1. Patient with Citrobacter urinary tract infection infection which is sensitive to Levaquin, the patient is on, to continue to finish a 7 day course of therapy. 2. Bilateral gluteal stage II pressure ulcer. Local wound care with dry Aquacel silver. Keep the area off the pressure. MMODL / IJN: [id number] /
[2019-02-26] MEDS: LEVOFLOXACIN 250 MG TAB PO SCH (20:00)
[2019-02-26 20:22] LABS: Glucose,Whole Blood 142 mg/dL (75-99)
[2019-02-27 06:20] LABS: Glucose,Whole Blood 121 mg/dL (75-99)
[2019-02-27] MEDS: LEVOTHYROXINE 75 MCG TAB PO SCH (06:23)
[2019-02-27] MEDS: PANTOPRAZOLE 40 MG TABLET PO SCH (06:23)
--- NOTE | 2019-02-27 06:25 | P.CONS ---
History of Present Illness - Chief Complaint Walking difficulty - History of Present Illness I had the opportunity to see patient for inpatient rehab consultation with regard to walking difficulty. She was admitted to [facility] February 22 with left hip pain of 1-1/2 month duration. In fact was set to see [facility]. Seen by Dr. Morrell who notes left hip fracture. Left hip x-ray and follow-up CT due demonstrate subcapital fracture. Seen by cardiology who notes atrial fibrillation with RVR. Seen by Dr. Ventura for sacral decubitus grade 2. Bone scan done and demonstrates left hip activity. Chest x- ray suboptimal. PT and OT prescribed but may be an old or bed rest due to possible surgery. Previous functional history as elicited patient: 78-year-old right-handed white female who is lives in a first-floor return floor home with son and grandson. Son does most of the cooking. Laundry done and laundry mat. Patient does not drive. Patient independent with sitdown tub bath and gait with [address] Olivarez. Denies tobacco or alcohol. Family history both parents with cancer. Review of Systems Review of systems: ENT: Denies sneezes or discharge. Eyes: Denies discharge or photophobia. Cardiac: Denies chest pain or palpitation. Pulmonary: Denies cough or shortness of breath. Breast: Denies discharge or lumps. Gastrointestinal: Denies nausea, emesis, constipation, diarrhea. Genitourinary: Denies discharge or frequency. Musculoskeletal: Long-standing discomfort and limitation both shoulders. Discomfort left hip. Neurologic: Denies motor or sensory change. Endocrine: Denies shakes or sweats. Oncology: Denies cancers. Dermatologic: Denies rash, itching, pruritus. ALLERGY/immunology: Denies sneezes, rashes. Past Medical History Past Medical History: Atrial Fibrillation, Cancer, COPD, Diabetes Mellitus, Deep Vein Thrombosis (DVT), Hypertension, Osteoarthritis (OA), Skin Disorder, Sleep Apnea/CPAP/BIPAP, Thyroid Disorder Additional Past Medical History / Comment(s): Hx. of wound rt leg, hx vulvar cancer, gout. History of Any Multi-Drug Resistant Organisms: MRSA Year Discovered:: 2011 MDRO Source:: rt leg wound Past Surgical History: Appendectomy, Cholecystectomy, Tonsillectomy Additional Past Surgical History / Comment(s): tubal , Colonoscopy, D&C. Past Anesthesia/Blood Transfusion Reactions: Postoperative Nausea & Vomiting (PONV) Past Psychological History: No Psychological Hx Reported Smoking Status: Former smoker Past Alcohol Use History: None Reported Additional Past Alcohol Use History / Comment(s): Patient was a smoker and quit 40 years ago. She denies any marijuana, street drug or alcohol use. She currently lives at home with her oldest son and grandson. 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 Past Drug Use History: None Reported - Past Family History Mother Family Medical History: Cancer Additional Family Medical History / Comment(s): colon Father Family Medical History: Cancer Additional Family Medical History / Comment(s): skin Medications and Allergies Home Medications Medication Instructions Recorded Confirmed Type Allopurinol [Zyloprim] 300 mg PO DAILY 08/27/14 02/22/19 History Aspirin 81 mg PO DAILY 08/27/14 02/22/19 History Furosemide [Lasix] 40 mg PO DAILY 08/27/14 02/22/19 History Losartan [Cozaar] 50 mg PO DAILY 08/27/14 02/22/19 History Potassium Chloride [Klor-Con 10] 10 meq PO DAILY 08/27/14 02/22/19 History Verapamil [Isoptin] 80 mg PO QAM 08/27/14 02/22/19 History metFORMIN HCL [Glucophage] 500 mg PO BID 08/27/14 02/22/19 History Ergocalciferol (Vitamin D2) 50,000 unit PO CANSECO 02/22/19 02/22/19 History [Drisdol] Fluticasone/Salmeterol [Advair 1 puff INHALATION RT-BID 02/22/19 02/22/19 History 500-50 Diskus] Levothyroxine Sodium [Synthroid] 75 mcg PO DAILY 02/22/19 02/22/19 History Verapamil [Isoptin] 80 mg PO HS PRN 02/22/19 02/22/19 History Allergies Allergy/AdvReac Type Severity Reaction Status Date / Time adhesive tape Allergy Rash/Hives Verified 02/22/19 15:38 cephalexin monohydrate Allergy Rash/Hives Verified 02/22/19 15:38 [From Keflex] Physical Exam Vitals: Vital Signs Temp Pulse Pulse Resp BP Pulse Ox 02/26/19 23:10 99.4 F 99 20 105/67 95 02/26/19 20:14 98.2 F 89 20 113/52 96 02/26/19 19:55 80 02/26/19 19:39 80 02/26/19 16:14 80 02/26/19 16:04 77 95 02/26/19 16:00 60 20 117/57 97 02/26/19 12:00 78 19 116/55 97 02/26/19 11:51 19 02/26/19 08:13 88 02/26/19 08:00 98.2 F 88 105 H 19 119/73 92 L Intake and Output 02/26/19 02/26/19 02/27/19 14:59 22:59 06:59 Intake Total 480 Balance 480 Intake: Oral 480 Other: Voiding Method Indwelling Catheter Indwelling Catheter Indwelling Catheter Skin: Atrophic, intact. General: Morbidly obese build and comfortable appearance. Head: Normocephalic, atraumatic. Eyes: Symmetric. Pupils equal round. Ears: Symmetric. Hearing within normal limits. Mouth: Clear. Neck: Supple. Carotid without bruit. Cardiac: Regular rate and rhythm. Lungs: Clear anteriorly and posteriorly. Abdomen: Soft active nontender. Extremities: Normal tone. Neurological: Mental status: Alert, cooperative, pleasant. Cranial nerves: Symmetric facial tone and trapezius. Motor: Active movement all 4 limbs but definitely less than antigravity. Did not have patient move at left hip. Sensation: Intact throughout. DTRs: Symmetric and equal throughout. Mobility: Did not attempt to sit or stand due to hip fracture. Results CBC & Chem 7: 02/26/19 05:47 02/24/19 09:10 Labs: Abnormal Lab Results - Last 24 Hours (Table) 02/26/19 02/26/19 02/26/19 Range/Units 05:47 12:28 17:15 MCV 100.3 H (80.0-100.0) fL Neutrophils # 8.3 H (1.3-7.7) k/uL Lymphocytes # 0.8 L (1.0-4.8) k/uL POC Glucose (mg/dL) 121 H 100 H (75-99) mg/dL 02/26/19 Range/Units 20:21 MCV (80.0-100.0) fL Neutrophils # (1.3-7.7) k/uL Lymphocytes # (1.0-4.8) k/uL POC Glucose (mg/dL) 142 H (75-99) mg/dL Microbiology - Last 24 Hours (Table) 02/22/19 15:20 Urine Culture - Final Urine,Voided Citrobacter youngae Assessment and Plan (1) Fracture of femoral neck, left Current Visit: Yes Status: Acute Priority: Medium Code(s): S72.002A - FRACTURE OF UNSP PART OF NECK OF LEFT FEMUR, INIT SNOMED Code(s): 2384899 (2) Pressure ulcer of sacral region, stage 2 Current Visit: Yes Status: Acute Code(s): L89.152 - PRESSURE ULCER OF SACRAL REGION, STAGE 2 SNOMED Code(s): 735564264 Plan: Impression: 1. Walking fairly. 2. Left hip subcapital fracture. 3. Sacral decubitus grade 2, diabetic pressure ulcer. 4. Atrial fibrillation with RVR. 5. Osteoarthritis. 6. COPD. 7. History of cancer. 8. Morbid obesity. Comments and plan: At this time PT and OT are prescribed but appear to be on hold or on bed rest due to possible surgery. We'll follow with yourself but may require reorder therapies postoperatively.
[2019-02-27] MEDS: BUDESONIDE 0.25 MG/2 ML NEBU INHALATION SCH ×2 (08:09→19:42)
[2019-02-27] MEDS: ALBUTEROL NEBULIZED 2.5 MG/3 ML INHALATION PRN ×2 (08:10→19:42)
[2019-02-27] MEDS: metFORMIN 500 MG TAB PO SCH ×2 (08:46→16:39)
[2019-02-27] MEDS: METOPROLOL TARTRATE 25 MG TAB PO SCH ×2 (08:49→19:56)
[2019-02-27] MEDS: ASPIRIN 81 MG PO SCH (08:50)
[2019-02-27] MEDS: POTASSIUM CHLORIDE ER 10 MEQ TAB.ER.PRT PO SCH (08:50)
[2019-02-27] MEDS: ALLOPURINOL 300 MG TAB PO SCH (08:50)
[2019-02-27] MEDS: LOSARTAN 50 MG TAB PO SCH (08:50)
[2019-02-27] MEDS: FUROSEMIDE 40 MG TAB PO SCH (08:50)
[2019-02-27] MEDS: DOCUSATE 100 MG CAP PO SCH ×2 (08:50→19:56)
[2019-02-27] MEDS: APIXABAN 5 MG TAB PO SCH (08:53)
--- NOTE | 2019-02-27 09:17 | P.PN ---
Progress Note - Text Progress Note Date: 02/27/19 Per nursing, the patient has decided she would like to proceed with surgical fixation for her left femoral neck fracture. A consult has been placed for a second opinion form Dr. Bender, therefore we will be signing off this patient. Thank you for the consultation. Patient discussed with Dr. Morrell.
[2019-02-27] MEDS: MORPHINE SULFATE 4 MG/ML SYRINGE IV PRN ×3 (11:23→23:50)
--- NOTE | 2019-02-27 12:00 | P.PN ---
Subjective Progress Note Date: 02/27/19 This is a 78-year-old female with history of hypertension, diabetes, hyperlipidemia, obesity, paroxysmal atrial fibrillation, not on anticoagulation, history of prior DVT, osteoarthritis, obstructive sleep apnea, hypothyroidism, COPD, valvular cancer, history of MRSA, she states that she has seen Dr. Chaparro in the office in the past. She presented to the hospital with complaints of left hip pain. According to the patient for the past and experiencing pain in her left hip and her mobility has been decreasing significantly to the point where she could not walk. She scheduled an outpatient appointment with orthopedics next week but couldn't wait until that appointment because of her inability to walk and because of the pain. She came to the hospital for further evaluation and treatment. Her initial x-ray of the left hip on arrival here showed acute subcapital left femoral neck fracture with minimal impaction and lateral displacement. EKG showed atrial fibrillation with moderately rapid ventricular response. Chest x-ray was somewhat suboptimal with chronic findings, no acute process seen. CAT scan of the hip was also performed which revealed an acute impacted subcapital fracture of the left femur. Cardiology consultation was requested for preop clearance. Her blood pressure on arrival here 170/80 with a heart rate in the 90s low 100s, 97% on room air. White blood cell count 10.7, hemoglobin 14.8, platelet count 188. Sodium 138, potassium 4.2, BUN 28, creatinine 0.9. Alk phos 177, troponin 0.012. Urinalysis reveals a positive UTI. At the time of my examination this morning, patient is quite comfortable, she denies any recent angina, states that she does get short of breath but nothing more than her usual. 02/24/2019 Patient was seen and examined this morning, we saw the patient in consultation yesterday for preoperative clearance and cleared the patient from our perspective to go for surgery. We did see her and examined her today, she still continues to have significant pain in her hip.echocardiogram with Doppler study revealed an ejection fraction of 55-60%.low-grade temperature this morning of 99.8.wound culture moderate gram-negative bacilli. 02/25/2019 Patient seen and examined this morning, continues to complain of discomfort in her left hip area. He should had been evaluated by orthopedics, as well as some second opinion from Dr. Kem trevino who felt that it was not in the best interest to the patient undergo surgical fixation because of the multiple risk factors. The recommendation was to attempt a nonsurgical treatment with physical therapy. If the family wishes to proceed with surgical intervention, transfer to a tertiary referral center would be an option. She continues to be on heparin at this time, if they are not doing any surgeries for certain, patient will need to be reinitiated on Eliquis 5 mg one tablet by mouth twice a day. 02/26/2019 Patient was seen and examined this morning, continues to complain of pain in her left hip but overall states that she feels better. The patient is quite insistent that she have surgery, the documentation from orthopedic surgery is to continue medical therapy. She's requesting to speak with orthopedics again regarding this matter. From the cardiac standpoint, she was reinitiated on her Eliquis because the plan was not to proceed with surgery. We will continue to follow the patient along with you. 02/27/2019 Patient seen and examined this morning, hemodynamically stable. Patient is quite adamant this morning that she does want to proceed with surgery, they are seeking a second opinion, and may transfer the patient to another for this. Objective - Vital Signs Vital signs: Vital Signs Temp 98.2 F 02/27/19 08:53 Pulse 81 02/27/19 08:53 Resp 16 02/27/19 08:53 BP 110/54 02/27/19 08:53 Pulse Ox 94 L 02/27/19 08:53 Intake & Output 02/26/19 02/27/19 02/27/19 18:59 06:59 18:59 Intake Total 480 240 Output Total 450 Balance 480 -450 240 Weight 149.685 kg Intake: Oral 480 240 Output: Urine 450 Other: Voiding Method Indwelling Catheter Indwelling Catheter Indwelling Catheter - Exam PHYSICAL EXAMINATION: GENERAL: 78 year old female in no acute distress at the time of my examination HEENT: Head is atraumatic, normocephalic. Pupils equal, round. Sclera anicter ic. Conjunctiva are clear. Mucous membranes of the mouth are moist. Neck is supple. There is no elevated jugular venous pressure. No carotid bruit is heard. HEART EXAMINATION: Heart S1 and S2 irregularly irregular a systolic ejection murmur is heard at the base CHEST EXAMINATION: Lungs are clear to auscultation and precussion. No chest wall tenderness is noted on palpation or with deep breathing. ABDOMEN: Soft, obese, nontender. Bowel sounds are heard. No organomegaly noted. EXTREMITIES:[ 2+ peripheral pulses with trace evidence of peripheral edema chronic discoloration to bilateral lower extremities.significant pain in the left hip area NEUROLOGIC patient is awake, alert and oriented 3 . - Labs CBC & Chem 7: 02/26/19 05:47 02/24/19 09:10 Labs: Abnormal Lab Results - Last 24 Hours (Table) 02/26/19 02/26/19 02/26/19 Range/Units 12:28 17:15 20:21 POC Glucose (mg/dL) 121 H 100 H 142 H (75-99) mg/dL 02/27/19 Range/Units 06:18 POC Glucose (mg/dL) 121 H (75-99) mg/dL Microbiology - Last 24 Hours (Table) 02/22/19 15:20 Urine Culture - Final Urine,Voided Citrobacter youngae Assessment and Plan Plan: Assessment and plan #1 left femur fracture #2 atrophic relation with rapid ventricular response, paroxysmal, not currently on anticoagulation #3 hypertension #4 diabetes #5 hyperlipidemia #6 positive UTI #7 history of DVT #8 prior history of smoking #9 obesity Plan Patient will continue Eliquis 5 mg one tablet by mouth twice a day as at this time.patient wants another opinion regarding surgery, she is quite adamant that she wants to have the surgery performed. DNP note has been reviewed, I agree with a documented findings and plan of care. Patient was seen and examined.
[2019-02-27 12:29] LABS: Glucose,Whole Blood 130 mg/dL (75-99)
--- NOTE | 2019-02-27 15:50 | P.DS ---
Providers Date of admission: 02/22/19 12:22 Expected date of discharge: 02/27/19 Attending physician: Manuel Olivarez Consults: 02/22/19 12:13 Consult Physician Stat Consulting Provider: Maximiliano Morrell Consult Reason/Comments: Left femoral neck fracture Do you want consulting provider notified?: Yes 02/22/19 16:36 Consult Physician Stat Consulting Provider: Johna Gabriel Consult Reason/Comments: atrial fibrillation rapid ventricular rate, low HR Do you want consulting provider notified?: Yes 02/22/19 17:39 Consult Physician Routine Consulting Provider: Esperanza Franklin Consult Reason/Comments: Wound to coccyx and UTI Do you want consulting provider notified?: Yes, Notify in am 02/25/19 10:49 Consult Physician Routine Consulting Provider: Jama Lang Consult Reason/Comments: second opinon, left hip fracture Do you want consulting provider notified?: Yes 02/25/19 10:50 Consult Physician Routine Consulting Provider: Golden Watts Consult Reason/Comments: inpatient rehab Do you want consulting provider notified?: Yes 02/26/19 17:50 Consult Physician Routine Consulting Provider: Jean Claude Bender Consult Reason/Comments: 2nd opinion of left hip fx Do you want consulting provider notified?: Yes Primary care physician: Manuel Olivarez [facility] Course: Discharge diagnosis 1. Left hip fracture for which patient was evaluated by orthopedic services and determined to be high risk. Patient requesting transfer in regards to second opinion in regards to surgical intervention 2. Obesity 3. Chronic obstructive pulmonary disease with asthma 4. Urinary tract infection. Urine culture positive for Citrobacter. Patient maintained on Levaquin. Infectious disease did evaluate patient 5. Decubitus ulcers. Patient follows and wound care clinic. She was evaluated by infectious disease continue local wound care with dry Aquacel silver 6. Diabetes mellitus type 2. 7. History of paroxysmal atrial fibrillation. Current rate controlled. Patient was started on eliquis over the weekend due to no surgical intervention planned at that time. Discussed case with Dr. Acosta per cardiology. Patient has changed her mind and would like second opinion in regards to surgical intervention. Patient to be transferred to [facility]. At this time eliquis will be held. Last dose of eliquis was given on 02/27/2019 at 9 AM. Recommend eliquis be held at this time and if patient is planning surgical intervention to be started on IV heparin or bridging Lovenox on 02/28/2019 Hospital course This is a 78-year-old female patient who originally presented to the hospital on 02/22/2019. Patient presents with complaints of hip pain for approximately 6 weeks computed tomography scan of the head completed showing an acute impacted subcapital fracture of the left femur. Upon admission patient also found to have urinary tract infection. Patient has has medical history of COPD, wound coccyx, diabetes mellitus type 2, atrial fibrillation current rate controlled on eliquis, obesity, sleep apnea, thyroid disorder, essential hypertension and ex- smoker. Dr. SPEEDY Wright was covering for Dr. Olivarez until 02/27/2019 On 02/27/2019 Patient was evaluated by multiple orthopedic surgeons and it was determined the patient was too high risk due to comorbidities. Patient requesting second opinion for possible surgical intervention. Patient to be transferred to [facility]. I performed an examination of the patient and discussed their management with the Nurse Practitioner. I have reviewed the Nurse Practitioner's notes and agree with the documented findings and plan of care Patient Condition at Discharge: Stable Plan - Discharge Summary Discharge Rx Participant: Yes New Discharge Prescriptions: New Docusate [Colace] 100 mg PO BID cap Levofloxacin [Levaquin] 250 mg PO Q24H tab Metoprolol Tartrate [Lopressor] 25 mg PO BID tab Acetaminophen Tab [Tylenol] 650 mg PO Q6HR PRN tab PRN Reason: Mild Pain Or Fever > 100.5 traMADol HCl [Ultram] 50 mg PO Q6H PRN tab PRN Reason: Moderate Pain Albuterol Nebulized [Ventolin Nebulized] 2.5 mg INHALATION RT-Q4H PRN nebu PRN Reason: Shortness Of Breath Or Wheezing Continue Losartan [Cozaar] 50 mg PO DAILY Aspirin 81 mg PO DAILY metFORMIN HCL [Glucophage] 500 mg PO BID Allopurinol [Zyloprim] 300 mg PO DAILY Furosemide [Lasix] 40 mg PO DAILY Potassium Chloride [Klor-Con 10] 10 meq PO DAILY Ergocalciferol (Vitamin D2) [Drisdol] 50,000 unit PO CANSECO Fluticasone/Salmeterol [Advair 500-50 Diskus] 1 puff INHALATION RT-BID Levothyroxine Sodium [Synthroid] 75 mcg PO DAILY Discontinued Verapamil [Isoptin] 80 mg PO QAM Verapamil [Isoptin] 80 mg PO HS PRN PRN Reason: Blood Pressure - High Discharge Medication List Allopurinol [Zyloprim] 300 mg PO DAILY 08/27/14 [History] Aspirin 81 mg PO DAILY 08/27/14 [History] Furosemide [Lasix] 40 mg PO DAILY 08/27/14 [History] Losartan [Cozaar] 50 mg PO DAILY 08/27/14 [History] Potassium Chloride [Klor-Con 10] 10 meq PO DAILY 08/27/14 [History] metFORMIN HCL [Glucophage] 500 mg PO BID 08/27/14 [History] Ergocalciferol (Vitamin D2) [Drisdol] 50,000 unit PO CANSECO 02/22/19 [History] Fluticasone/Salmeterol [Advair 500-50 Diskus] 1 puff INHALATION RT-BID 02/22/19 [History] Levothyroxine Sodium [Synthroid] 75 mcg PO DAILY 02/22/19 [History] Acetaminophen Tab [Tylenol] 650 mg PO Q6HR PRN tab 02/27/19 [Rx] Albuterol Nebulized [Ventolin Nebulized] 2.5 mg INHALATION RT-Q4H PRN nebu 02/27/19 [Rx] Docusate [Colace] 100 mg PO BID cap 02/27/19 [Rx] Levofloxacin [Levaquin] 250 mg PO Q24H tab 02/27/19 [Rx] Metoprolol Tartrate [Lopressor] 25 mg PO BID tab 02/27/19 [Rx] traMADol HCl [Ultram] 50 mg PO Q6H PRN tab 02/27/19 [Rx] Follow up Appointment(s)/Referral(s): [facility] [NON-STAFF] - 1 Week Manuel Olivarez MD [Primary Care Provider] - 1-2 days Activity/Diet/Wound Care/Special Instructions: Patient to be transferred to [facility] for second opinion regards to orthopedic evaluation per patient request Last dose of eliquis 02/27/2019 9 AM. This was discussed with cardiology nurse practitioner Dr. Acosta recommend starting heparin drip on 02/28/2019 known atrial fibrillation until surgical plan is established Discharge Disposition: OTHER INSTITUTION NOT DEFINED
--- NOTE | 2019-02-27 16:40 | XR ---
EXAMINATION TYPE: XR chest 1V portable DATE OF EXAM: 02/27/2019 Comparison: 02/22/2019 Clinical History: 78-year-old female increased cough Findings: Asymmetric elevation right hemidiaphragm is unchanged. This limits full visualization of the right ba se. Old healed fracture deformity right surgical neck. Heart borderline enlarged. No evident consolid ation or pleural effusion. Impression: 1. Asymmetric elevation right hemidiaphragm limiting full visualization of the right base. Query poss ibility of hemidiaphragmatic paralysis. 2. Otherwise, no acute process seen elsewhere in the lungs.
[2019-02-27 17:12] LABS: Glucose,Whole Blood 110 mg/dL (75-99)
[2019-02-27] MEDS: LEVOFLOXACIN 250 MG TAB PO SCH (19:56)
[2019-02-27 20:33] LABS: Glucose,Whole Blood 137 mg/dL (75-99)
--- NOTE | 2019-02-27 23:08 | PN ---
PROGRESS NOTE DATE OF SERVICE: 02/27/2019 REASON FOR FOLLOW UP: 1. Bilateral gluteal stage II pressure ulcer. 2. UTI. INTERVAL HISTORY: The patient is currently afebrile. The patient is breathing comfortably. Denies having any chest pain or any cough. No nausea. No vomiting. No abdominal pain. No diarrhea. PHYSICAL EXAMINATION: Blood pressure is 144/53 with a pulse of 80. Temperature 97.3. She is 93% on room air. General description is an elderly female, lying in bed in no distress. Respiratory system: Unlabored breathing. Clear to auscultation anteriorly. Heart S1, S2. Regular rate and rhythm. ABDOMEN: Soft, no tenderness. LABS: No new labs have been obtained today. DIAGNOSTIC IMPRESSION AND PLAN: 1. Patient with stage II bilateral lower extremity pressure ulcer. Local care with dry Aquacel Silver dressing to keep the area off the pressure. 2. Citrobacter urinary tract infection to continue Levaquin for another few days to finish a course of therapy. Continue supportive care. MMODL / IJN: [id number] /
[2019-02-28 06:01] LABS: Glucose,Whole Blood 131 mg/dL (75-99)
[2019-02-28] MEDS: PANTOPRAZOLE 40 MG TABLET PO SCH (06:23)
[2019-02-28] MEDS: LEVOTHYROXINE 75 MCG TAB PO SCH (06:23)
[2019-02-28] MEDS: metFORMIN 500 MG TAB PO SCH ×2 (06:23→17:01)
[2019-02-28 06:31] LABS: Basophils # (A) 0.4 k/uL (0-0.2); Basophils % (A) 3 %; Eosinophils # (A) 0.5 k/uL (0-0.7); Eosinophils % (A) 5 %; HCT 42.5 % (34.0-46.0); HGB 13.7 gm/dL (11.4-16.0); Lymphocytes # (A) 0.8 k/uL (1.0-4.8); Lymphocytes % (A) 8 %; MCH 32.3 pg (25.0-35.0); MCHC 32.2 g/dL (31.0-37.0); MCV 100.3 fL (80.0-100.0); Mean Platelet Volume 7.3; Monocytes # (A) 0.7 k/uL (0-1.0); Monocytes % (A) 6 %; Neutrophils % (A) 76 %; Platelet Count 257 k/uL (150-450); RBC 4.24 m/uL (3.80-5.40); WBC 10.4 k/uL (3.8-10.6)
[2019-02-28] MEDS: BUDESONIDE 0.25 MG/2 ML NEBU INHALATION SCH ×2 (08:14→21:22)
[2019-02-28] MEDS: ALBUTEROL NEBULIZED 2.5 MG/3 ML INHALATION PRN ×2 (08:14→21:22)
[2019-02-28] MEDS: POTASSIUM CHLORIDE ER 10 MEQ TAB.ER.PRT PO SCH (08:44)
[2019-02-28] MEDS: FUROSEMIDE 40 MG TAB PO SCH (08:44)
[2019-02-28] MEDS: LOSARTAN 50 MG TAB PO SCH (08:44)
[2019-02-28] MEDS: ALLOPURINOL 300 MG TAB PO SCH (08:44)
[2019-02-28] MEDS: METOPROLOL TARTRATE 25 MG TAB PO SCH ×2 (08:44→21:10)
[2019-02-28] MEDS: ASPIRIN 81 MG PO SCH (08:44)
[2019-02-28] MEDS: DOCUSATE 100 MG CAP PO SCH ×2 (08:44→21:10)
[2019-02-28 08:53] LABS: Calcium 10.1 mg/dL (8.4-10.2); Total Bilirubin 0.7 mg/dL (0.2-1.3); Total Protein 5.5 g/dL (6.3-8.2)
[2019-02-28 08:54] LABS: Potassium 4.5 mmol/L (3.5-5.1)
[2019-02-28 12:02] LABS: Glucose,Whole Blood 128 mg/dL (75-99)
--- NOTE | 2019-02-28 12:20 | P.PN ---
Subjective Progress Note Date: 02/28/19 This is a 78-year-old female patient who originally presented to the hospital on 02/22/2019. Patient presents with complaints of hip pain for approximately 6 weeks computed tomography scan of the head completed showing an acute impacted subcapital fracture of the left femur. Upon admission patient also found to have urinary tract infection. Patient has has medical history of COPD, wound coccyx, diabetes mellitus type 2, atrial fibrillation current rate controlled on eliquis, obesity, sleep apnea, thyroid disorder, essential hypertension and ex- smoker. Dr. SPEEDY Wright was covering for Dr. Olivarez until 02/27/2019 On 02/27/2019 Patient was evaluated by multiple orthopedic surgeons and it was determined the patient was too high risk due to comorbidities. Patient requesting second opinion for possible surgical intervention. Patient to be transferred to [facility]. On 02/28/2019 patient awaiting transfer to [facility]. Case management addressing. Per medical case manager patient has been accepted at [facility] awaiting bed placement. Heart rate remains controlled. Patient remains on Levaquin for urinary tract infection. Eliquis remains on hold Objective - Vital Signs Vital signs: Vital Signs Temp 98.2 F 02/28/19 08:00 Pulse 90 02/28/19 08:34 Resp 18 02/28/19 08:00 BP 108/55 02/28/19 08:00 Pulse Ox 92 L 02/28/19 08:00 Intake & Output 02/27/19 02/28/19 02/28/19 18:59 06:59 18:59 Intake Total 480 480 180 Output Total 1750 Balance 480 -1270 180 Weight 149.685 kg Intake: Oral 480 480 180 Output: Urine 1750 Other: Voiding Method Indwelling Catheter Indwelling Catheter Indwelling Catheter - Exam Head normocephalic Neck supple Lungs clear to auscultation bilaterally no wheezing or crackles Heart irregular heart rate Abdomen is soft obese nontender nondistended positive bowel sounds no hepatosplenomegaly Extremities no edema. Bilateral lower extremity erythema Neuro alert and orientated to 3 - Labs CBC & Chem 7: 02/28/19 06:16 02/28/19 06:16 Labs: Abnormal Lab Results - Last 24 Hours (Table) 02/27/19 02/27/19 02/27/19 Range/Units 12:28 17:11 20:29 MCV (80.0-100.0) fL Neutrophils # (1.3-7.7) k/uL Lymphocytes # (1.0-4.8) k/uL Basophils # (0-0.2) k/uL BUN (7-17) mg/dL Glucose (74-99) mg/dL POC Glucose (mg/dL) 130 H 110 H 137 H (75-99) mg/dL Total Protein (6.3-8.2) g/dL Albumin (3.5-5.0) g/dL 02/28/19 02/28/19 02/28/19 Range/Units 06:00 06:16 06:16 MCV 100.3 H (80.0-100.0) fL Neutrophils # 8.0 H (1.3-7.7) k/uL Lymphocytes # 0.8 L (1.0-4.8) k/uL Basophils # 0.4 H (0-0.2) k/uL BUN 59 H (7-17) mg/dL Glucose 137 H (74-99) mg/dL POC Glucose (mg/dL) 131 H (75-99) mg/dL Total Protein 5.5 L (6.3-8.2) g/dL Albumin 3.0 L (3.5-5.0) g/dL 02/28/19 Range/Units 12:00 MCV (80.0-100.0) fL Neutrophils # (1.3-7.7) k/uL Lymphocytes # (1.0-4.8) k/uL Basophils # (0-0.2) k/uL BUN (7-17) mg/dL Glucose (74-99) mg/dL POC Glucose (mg/dL) 128 H (75-99) mg/dL Total Protein (6.3-8.2) g/dL Albumin (3.5-5.0) g/dL Assessment and Plan Assessment: 1. Left hip fracture for which patient was evaluated by orthopedic services and determined to be high risk. Patient requesting transfer in regards to second opinion in regards to surgical intervention 2. Obesity 3. Chronic obstructive pulmonary disease with asthma 4. Urinary tract infection. Urine culture positive for Citrobacter. Patient maintained on Levaquin. Infectious disease did evaluate patient 5. Decubitus ulcers. Patient follows and wound care clinic. She was evaluated by infectious disease continue local wound care with dry Aquacel silver 6. Diabetes mellitus type 2. 7. History of paroxysmal atrial fibrillation. Current rate controlled. Patient was started on eliquis over the weekend due to no surgical intervention planned at that time. Discussed case with Dr. Acosta per cardiology. Patient has changed her mind and would like second opinion in regards to surgical intervention. Patient to be transferred to [facility]. At this time eliquis will be held. Last dose of eliquis was given on 02/27/2019 at 9 AM. Recommend eliquis be held at this time and if patient is planning surgical intervention to be started on IV heparin or bridging Lovenox on 02/28/2019 [facility] has accepted patient awaiting bed placement I performed an examination of the patient and discussed their management with the Nurse Practitioner. I have reviewed the Nurse Practitioner's notes and agree with the documented findings and plan of care
--- NOTE | 2019-02-28 16:39 | PN ---
PROGRESS NOTE DATE OF SERVICE: 02/28/2019 REASON FOR FOLLOW UP: 1. Bilateral gluteal pressure ulcer. 2. Urinary tract infection. INTERVAL HISTORY: The patient is currently afebrile. The patient is breathing comfortably. The patient denies having any chest pain. No shortness of breath or cough. No nausea. No vomiting. No abdominal pain. No diarrhea. PHYSICAL EXAMINATION: On examination, blood pressure is 138/55, pulse is 90, temperature is 98.2. She is 97% on room air. General description is an elderly female lying in bed in no distress. Respiratory system: Unlabored breathing, clear to auscultation anteriorly. Heart S1, S2. Regular rate and rhythm. LABS: Hemoglobin is 13.7, white count is 10.1, BUN of 10, creatinine 0.84. DIAGNOSTIC IMPRESSION AND PLAN: 1. Patient with bilateral gluteal stage II pressure ulcer. Local wound care with dry Aquacel dressing. Keep the area off the pressure. 2. Patient with Citrobacter urinary tract infection, overall improvement on Levaquin treatment with another few days to finish a course of therapy. Continue supportive care. MMODL / IJN: [id number] /
[2019-02-28] MEDS: MORPHINE SULFATE 4 MG/ML SYRINGE IV PRN ×2 (17:01→21:13)
[2019-02-28 17:30] LABS: Glucose,Whole Blood 117 mg/dL (75-99)
[2019-02-28 20:13] LABS: Glucose,Whole Blood 125 mg/dL (75-99)
[2019-02-28] MEDS: LEVOFLOXACIN 250 MG TAB PO SCH (21:10)
[2019-03-01 06:09] LABS: Glucose,Whole Blood 137 mg/dL (75-99)
[2019-03-01] MEDS: PANTOPRAZOLE 40 MG TABLET PO SCH (06:47)
[2019-03-01] MEDS: metFORMIN 500 MG TAB PO SCH (06:47)
[2019-03-01] MEDS: LEVOTHYROXINE 75 MCG TAB PO SCH (06:47)
[2019-03-01] MEDS: ALBUTEROL NEBULIZED 2.5 MG/3 ML INHALATION PRN (07:40)
[2019-03-01] MEDS: BUDESONIDE 0.25 MG/2 ML NEBU INHALATION SCH (07:40)
[2019-03-01] MEDS: FUROSEMIDE 40 MG TAB PO SCH (09:13)
[2019-03-01] MEDS: METOPROLOL TARTRATE 25 MG TAB PO SCH (09:13)
[2019-03-01] MEDS: ALLOPURINOL 300 MG TAB PO SCH (09:13)
[2019-03-01] MEDS: LOSARTAN 50 MG TAB PO SCH (09:13)
[2019-03-01] MEDS: ASPIRIN 81 MG PO SCH (09:13)
[2019-03-01] MEDS: POTASSIUM CHLORIDE ER 10 MEQ TAB.ER.PRT PO SCH (09:13)
[2019-03-01] MEDS: DOCUSATE 100 MG CAP PO SCH (09:13)
[2019-03-01] MEDS ORDERED: ENOXAPARIN 100 MG/ML SYRINGE SQ SCH (09:15)
--- NOTE | 2019-03-01 09:23 | CDI ---
Documentation Clarification Form Date: 03/01/2019 09:02:48 AM From: Bernarda Tucker RN CCDS Admit Date: 02/22/2019 12:22:00 PM Patient Name: Jerilyn Britton Visit Number: [id number] Discharge Date: ATTENTION: The Clinical Documentation Specialists (CDI) and [facility] Coding Staff appreciate your assistance in clarifying documentation. Please respond to the clarification below the line at the bottom and electronically sign. The CDI & [facility] Coding staff will review the response and follow-up if needed. Please note: Queries are made part of the Legal Health Record. If you have any questions, please contact the author of this message via ITS. Dr. Esperanza Franklin Conflicting documentation has been found in the medical record: Patient with bilateral gluteal area stage II pressure ulcer Your consult 02/23/19 The patients bilateral gluteal area, pressure ulcer stage III. Your Progress Note 02/25/19 Patient with bilateral gluteal stage II pressure ulcer. Your Progress Note 02/28/19 History/Risk Factors: 78-year-old female presents to the ED via EMS with complaints of left hip pain and has been increasing for two weeks. Nursing Documentation Right Buttock -Stage III Right pressure ulcer. Length 4cm width 1 cm depth 1cm granulation 1-25% meagan wound excoriation meagan wound maceration, meagan wound color erythema. Left Buttock - Stage III length 1cm; Width 1cm; Depth 1cm; meagan wound excoriation meagan wound maceration; meagan wound color erythema; drainage amount scant. Medical History Atrial Fibrillation; HTN; OA; DM; Sleep Apnea Clinical Indicators: Treatment: Oral nutrition supplement; Opticell Gel Fiber AG, Thera honey, Opti foam gentle liquid In your opinion, what is the most clinically appropriate diagnosis for this patient? * Bilateral Gluteal Stage III Pressure Ulcers POA * Bilateral Gluteal Stage II Pressure Ulcers POA * Other explanation of clinical findings * Unable to determine (no explanation for clinical findings) (Last Revision: May 2017) Bilateral Gluteal stage II pressure ulcers POA MTDD
[2019-03-01] MEDS: MORPHINE SULFATE 4 MG/ML SYRINGE IV PRN (12:09)
--- NOTE | 2019-03-01 12:27 | P.PN ---
Subjective Progress Note Date: 03/01/19 This is a 78-year-old female patient who originally presented to the hospital on 02/22/2019. Patient presents with complaints of hip pain for approximately 6 weeks computed tomography scan of the head completed showing an acute impacted subcapital fracture of the left femur. Upon admission patient also found to have urinary tract infection. Patient has has medical history of COPD, wound coccyx, diabetes mellitus type 2, atrial fibrillation current rate controlled on eliquis, obesity, sleep apnea, thyroid disorder, essential hypertension and ex- smoker. Dr. SPEEDY Wright was covering for Dr. Olivarez until 02/27/2019 On 02/27/2019 Patient was evaluated by multiple orthopedic surgeons and it was determined the patient was too high risk due to comorbidities. Patient requesting second opinion for possible surgical intervention. Patient to be transferred to [facility]. On 02/28/2019 patient awaiting transfer to [facility]. Case management addressing. Per caser shoe parts patient has been accepted at [facility] awaiting bed placement. Heart rate remains controlled. Patient remains on Levaquin for urinary tract infection. Eliquis remains on hold On 03/01/2019 patient is alert and oriented 3. Patient awaiting transfer to [facility]. Case management is following. Patient has been started on bridging Lovenox for atrial fibrillation while eliquis of on hold. At the time patient denies any chest pain or shortness of breath. Patient denies nausea vomiting or diarrhea. Patient denies any urinary burning or frequency Objective - Vital Signs Vital signs: Vital Signs Temp 98.2 F 03/01/19 08:00 Pulse 112 H 03/01/19 08:00 Resp 22 03/01/19 08:00 BP 122/62 03/01/19 08:00 Pulse Ox 90 L 03/01/19 08:00 Intake & Output 02/28/19 03/01/19 03/01/19 18:59 06:59 18:59 Intake Total 660 Output Total 500 Balance 660 -500 Weight 0 g Intake: Oral 660 Output: Urine 500 Other: Voiding Method Indwelling Catheter Indwelling Catheter Indwelling Catheter - Exam Head normocephalic Neck supple Lungs clear to auscultation bilaterally no wheezing or crackles Heart irregular heart rate Abdomen is soft obese nontender nondistended positive bowel sounds no hepatosplenomegaly Extremities no edema. Bilateral lower extremity erythema Neuro alert and orientated to 3 - Labs CBC & Chem 7: 02/28/19 06:16 02/28/19 06:16 Labs: Abnormal Lab Results - Last 24 Hours (Table) 02/28/19 02/28/19 03/01/19 Range/Units 17:26 20:12 06:07 POC Glucose (mg/dL) 117 H 125 H 137 H (75-99) mg/dL Assessment and Plan Assessment: 1. Left hip fracture for which patient was evaluated by orthopedic services and determined to be high risk. Patient requesting transfer in regards to second opinion in regards to surgical intervention 2. Obesity 3. Chronic obstructive pulmonary disease with asthma 4. Urinary tract infection. Urine culture positive for Citrobacter. Patient maintained on Levaquin. Infectious disease did evaluate patient 5. Decubitus ulcers. Patient follows and wound care clinic. She was evaluated by infectious disease continue local wound care with dry Aquacel silver 6. Diabetes mellitus type 2. 7. History of paroxysmal atrial fibrillation. Current rate controlled. Patient was started on eliquis over the weekend due to no surgical intervention planned at that time. Discussed case with Dr. Acosta per cardiology. Patient has changed her mind and would like second opinion in regards to surgical intervention. Patient to be transferred to [facility]. At this time eliquis will be held. Last dose of eliquis was given on 02/27/2019 at 9 AM. Recommend eliquis be held at this time and if patient is planning surgical intervention to be started on IV heparin or bridging Lovenox on 02/28/2019. She has been started on bridging Lovenox [facility] has accepted patient awaiting bed placement I performed an examination of the patient and discussed their management with the Nurse Practitioner. I have reviewed the Nurse Practitioner's notes and agree with the documented findings and plan of care
[2019-03-01] MEDS ORDERED: LACTULOSE 20 GM/30 ML CUP PO ONE (12:29)
[2019-03-01 12:43] LABS: Glucose,Whole Blood 123 mg/dL (75-99)
[2019-03-01 12:49] VITALS: BP 129/64; PULSE 75; RESP 24; TEMP 97.6
--- NOTE | 2019-03-01 16:01 | PN ---
PROGRESS NOTE DATE OF SERVICE: 03/01/2019 REASON FOR FOLLOWUP: 1. Bilateral gluteal pressure ulcer. 2. Citrobacter UTI. INTERVAL HISTORY: The patient was seen on rounds this morning. The patient has been afebrile. She was breathing comfortably. No chest pain. No cough. No nausea, no vomiting. No abdominal pain or any diarrhea. PHYSICAL EXAMINATION: Blood pressure 129/64 with a pulse of 75, temperature 97.6. She is 93% on room air. General description is an elderly female lying in bed in no distress. RESPIRATORY SYSTEM: Unlabored breathing. Clear to auscultation anteriorly. HEART: S1, S2. Regular rate and rhythm. ABDOMEN: Soft. No tenderness. LABS: No new labs have been obtained today. DIAGNOSTIC IMPRESSION AND PLAN: 1. Patient with bilateral gluteal pressure ulcer. There is no evidence of any secondary cellulitis. Local care with dry Aquacel Silver dressing. Keep the area off pressure. 2. Citrobacter urinary tract infection. Continue Levaquin for a few days to finish her course of therapy. Continue with supportive care. MMODL / IJN: [id number] /
--- NOTE | 2019-03-03 09:17 | CDI ---
Documentation Clarification Form Date: 03/03/19 From: Lucy Monte Phone: If you have a question about this query, please contact Susannah Whyte Licensed Sales Producer at [phone] between 8am and 5pm. Admit Date: 02/22/19 Discharge Date:03/01/19 Patient Name: [id number] Visit Number: [id number] ATTENTION: The Clinical Documentation Specialists (CDI) and [facility] Coding Staff appreciate your assistance in clarifying documentation. Please respond to the clarification below the line at the bottom and electronically sign. The CDI & [facility] Coding staff will review the response and follow-up if needed. Please note: Queries are made part of the Legal Health Record. If you have any questions, please contact the author of this message via ITS. Dear Dr. Olivarez Patient has been diagnosed with a subcapital left femoral neck fracture with minimal impaction and lateral displacement. History/Risk Factors: No trauma, history of smoking Clinical Indications: hip pain for 1 1/2 months X-Ray Results: Acute subcapital left femoral neck fracture with minimal impaction and lateral displacement. Diffuse osseous demineralization is seen, Treatment: IV Morphine. Transferred to [facility] for possible surgical intervention. In your professional opinion, please specify the following: Etiology of fracture: Traumatic Pathological (specify cause): Neoplastic disease Osteoporosis Other (please specify): Unable to determine unable to determine MTDD
== END 2019-03-01 13:43 | disposition short-term general hospital (02) | DRG 536 ==
LOC: EC 10:33 → 4SSUR 12:22 → 3SCARD 13:23 → 4SSUR 14:13 → 3SCARD 17:01
PROVIDERS: ADMIT Internal Medicine; ATTEND Internal Medicine
DX: S72.142A Displaced intertrochanteric fracture of left femur, initial encounter for closed fracture (principal); J44.1 Chronic obstructive pulmonary disease with (acute) exacerbation; J45.901 Unspecified asthma with (acute) exacerbation; N39.0 Urinary tract infection, site not specified; Z68.44 Body mass index [BMI] 60.0-69.9, adult; L89.322 Pressure ulcer of left buttock, stage 2; L89.312 Pressure ulcer of right buttock, stage 2; E11.622 Type 2 diabetes mellitus with other skin ulcer; M19.90 Unspecified osteoarthritis, unspecified site; E66.01 Morbid (severe) obesity due to excess calories; E78.5 Hyperlipidemia, unspecified; G47.33 Obstructive sleep apnea (adult) (pediatric); I10 Essential (primary) hypertension; I48.0 Paroxysmal atrial fibrillation; I87.2 Venous insufficiency (chronic) (peripheral); M10.9 Gout, unspecified; R00.1 Bradycardia, unspecified; R26.2 Difficulty in walking, not elsewhere classified; E03.9 Hypothyroidism, unspecified; I89.0 Lymphedema, not elsewhere classified; B96.89 Other specified bacterial agents as the cause of diseases classified elsewhere; Z79.01 Long term (current) use of anticoagulants; Z79.82 Long term (current) use of aspirin; Z79.84 Long term (current) use of oral hypoglycemic drugs; Z79.890 Hormone replacement therapy; Z79.899 Other long term (current) drug therapy; Z87.891 Personal history of nicotine dependence; Z86.718 Personal history of other venous thrombosis and embolism; Z85.44 Personal history of malignant neoplasm of other female genital organs; Z85.21 Personal history of malignant neoplasm of larynx; Z90.49 Acquired absence of other specified parts of digestive tract; Z86.14 Personal history of Methicillin resistant Staphylococcus aureus infection; Z88.1 Allergy status to other antibiotic agents; Z91.048 Other nonmedicinal substance allergy status; Z80.8 Family history of malignant neoplasm of other organs or systems; Z80.0 Family history of malignant neoplasm of digestive organs
CPT/HCPCS: 36415; 71045; 73502; 78315; 80048; 80053; 81001; 83605; 83735; 84100; 84484; 85025; 85610; 85730; 86850; 86900; 86901; 87070; 87077; 87086; 87186; 87205; 87502; 93005; 93306; 94640; 94760; 96361; 96374; 96375; 99285

== ENCOUNTER 2019-03-31 14:18 | Inpatient (IN) | payer MEDICARE ==
[2019-03-31] MEDS ORDERED: PANTOPRAZOLE 40 MG/10 ML VIAL IVP STA (14:59)
[2019-03-31] MEDS ORDERED: SODIUM CHLORIDE 0.9% 1,000 ML IV STA (14:59)
--- NOTE | 2019-03-31 15:16 | ED ---
General Adult HPI - General Source: EMS, RN notes reviewed, old records reviewed Mode of arrival: EMS <NoahcristinaErin - Last Filed: 03/31/19 18:56> <John Fraire - Last Filed: 03/31/19 20:27> - General Chief complaint: Recheck/Abnormal Lab/Rx Stated complaint: critical labs Time Seen by Provider: 03/31/19 14:29 - History of Present Illness Initial comments: Patient is a 79-year-old female with a complicated medical history. She has history of each of her ablation, hypertension diabetes, hypothyroidism, vulvar cancer with radiation to have one regional cancer in 2005 COPD. Patient unfortunately had a recent diagnosis of left hip fracture on 02/28/2019. She had been having left hip pain for 6 weeks prior. Patient was initially evaluated at this facility but was then transferred to [facility] for second orthopedic opinion. On 03/02 Patient underwent left maru-her throughout the past E. No complication was noted at that time. After Patient was extubated she did have some bouts of atrial fibrillation with RVR and was given Lopressor multiple times for rate control. She reports that she was also placed on antibiotics while at [facility] is now having a reaction to the antibiotics with dry filling skin. Patient was transferred from [facility] to [facility] proximally 1 week ago. She had lab work completed today which did show a significant drop in her hemoglobin. The last hemoglobin which was performed on 02/22 was 13. Today her hemoglobin is 7.1. Patient reports she has not noticed any black or tarry stools. She reports no significant pain at this time. She reports that her hip pain has been doing well after surgery. Patient reportedly was resumed on her Eliquis. (Erin León) - Related Data Home Medications Medication Instructions Recorded Confirmed Allopurinol [Zyloprim] 300 mg PO DAILY 08/27/14 02/22/19 Aspirin 81 mg PO DAILY 08/27/14 02/22/19 Furosemide [Lasix] 40 mg PO DAILY 08/27/14 02/22/19 Losartan [Cozaar] 50 mg PO DAILY 08/27/14 02/22/19 Potassium Chloride [Klor-Con 10] 10 meq PO DAILY 08/27/14 02/22/19 metFORMIN HCL [Glucophage] 500 mg PO BID 08/27/14 02/22/19 Ergocalciferol (Vitamin D2) 50,000 unit PO CANSECO 02/22/19 02/22/19 [Drisdol] Fluticasone/Salmeterol [Advair 1 puff INHALATION RT-BID 02/22/19 02/22/19 500-50 Diskus] Levothyroxine Sodium [Synthroid] 75 mcg PO DAILY 02/22/19 02/22/19 Previous Rx's Medication Instructions Recorded Acetaminophen Tab [Tylenol] 650 mg PO Q6HR PRN tab 02/27/19 Albuterol Nebulized [Ventolin 2.5 mg INHALATION RT-Q4H PRN nebu 02/27/19 Nebulized] Docusate [Colace] 100 mg PO BID cap 02/27/19 Levofloxacin [Levaquin] 250 mg PO Q24H tab 02/27/19 Metoprolol Tartrate [Lopressor] 25 mg PO BID tab 02/27/19 traMADol HCl [Ultram] 50 mg PO Q6H PRN tab 02/27/19 Allergies Allergy/AdvReac Type Severity Reaction Status Date / Time adhesive tape Allergy Rash/Hives Verified 02/22/19 15:38 cephalexin monohydrate Allergy Rash/Hives Verified 02/22/19 15:38 [From Keflex] Review of Systems ROS Other: All systems not noted in ROS Statement are negative. <Erin León - Last Filed: 03/31/19 18:56> ROS Other: All systems not noted in ROS Statement are negative. <John Fraire - Last Filed: 03/31/19 20:27> ROS Statement: Those systems with pertinent positive or pertinent negative responses have been documented in the HPI. Past Medical History Past Medical History: Atrial Fibrillation, Cancer, COPD, Diabetes Mellitus, Deep Vein Thrombosis (DVT), Hypertension, Osteoarthritis (OA), Skin Disorder, Sleep Apnea/CPAP/BIPAP, Thyroid Disorder Additional Past Medical History / Comment(s): Hx. of wound rt leg, hx vulvar cancer, gout. History of Any Multi-Drug Resistant Organisms: MRSA Date of last positivie culture/infection: 2011 MDRO Source:: rt leg wound Past Surgical History: Appendectomy, Cholecystectomy, Tonsillectomy Additional Past Surgical History / Comment(s): tubal , Colonoscopy, D&C. Past Anesthesia/Blood Transfusion Reactions: Postoperative Nausea & Vomiting (PONV) Past Psychological History: No Psychological Hx Reported Smoking Status: Former smoker Past Alcohol Use History: None Reported Past Drug Use History: None Reported - Past Family History Mother Family Medical History: Cancer Additional Family Medical History / Comment(s): colon Father Family Medical History: Cancer Additional Family Medical History / Comment(s): skin <Erin León - Last Filed: 03/31/19 18:56> General Exam General appearance: alert, in no apparent distress Head exam: Present: atraumatic, normocephalic, normal inspection Eye exam: Present: normal appearance, PERRL, EOMI. Absent: scleral icterus, conjunctival injection, periorbital swelling ENT exam: Present: normal exam, mucous membranes moist Neck exam: Present: normal inspection. Absent: tenderness, meningismus, lymphadenopathy Respiratory exam: Present: normal lung sounds bilaterally. Absent: respiratory distress, wheezes, rales, rhonchi, stridor Cardiovascular Exam: Present: regular rate, normal rhythm, normal heart sounds. Absent: systolic murmur, diastolic murmur, rubs, gallop, clicks GI/Abdominal exam: Present: soft, normal bowel sounds. Absent: distended, tende rness, guarding, rebound, rigid External exam: Present: other (Patient has multiple large pressure ulcers over her buttocks and near rectum.). Absent: normal external exam Extremities exam: Present: normal inspection, full ROM, normal capillary refill, other (Patient has incision site over the left hip. No significant erythema.). Absent: tenderness, pedal edema, joint swelling, calf tenderness Back exam: Present: normal inspection Neurological exam: Present: alert, oriented X3, CN II-XII intact Psychiatric exam: Present: normal affect, normal mood Skin exam: Present: warm, dry, intact, normal color, other (Is dry skin, flaking over arms). Absent: rash <Erin León - Last Filed: 03/31/19 18:56> - General Exam Comments Initial Comments: 39-year-old female. Alert and oriented 3. (Erin León) Course <Erin León - Last Filed: 03/31/19 18:56> Vital Signs 03/31/19 03/31/19 03/31/19 14:47 14:53 15:00 Temperature 97.9 F Pulse Rate 58 L 100 Respiratory 24 Rate Blood Pressure 88/38 88/38 O2 Sat by Pulse 96 97 92 L Oximetry 03/31/19 03/31/19 03/31/19 15:30 16:00 16:30 Temperature Pulse Rate 104 H 103 H 106 H Respiratory 18 20 Rate Blood Pressure 88/56 86/57 67/52 O2 Sat by Pulse 51 L Oximetry 03/31/19 03/31/19 03/31/19 17:00 17:30 18:00 Temperature Pulse Rate 100 105 H 106 H Respiratory 20 18 16 Rate Blood Pressure 67/52 67/52 83/45 O2 Sat by Pulse 70 L 79 L 92 L Oximetry 03/31/19 03/31/19 03/31/19 18:30 18:40 18:45 Temperature Pulse Rate 108 H 102 H 101 H Respiratory 18 22 20 Rate Blood Pressure 67/20 102/64 102/66 O2 Sat by Pulse 96 98 98 Oximetry 03/31/19 03/31/19 03/31/19 18:55 18:57 20:13 Temperature 97.9 F Pulse Rate 100 101 H 102 H Respiratory 20 22 18 Rate Blood Pressure 107/74 125/87 106/58 O2 Sat by Pulse 98 95 Oximetry - Reevaluation(s) Reevaluation #1: 03/31/19 18:56 There is been significantly Patient care due to problems with lab resulting. T he initial lab values showed that she had a hemoglobin of 15 they wanted to recheck this and a subsequent draw was confirmed that her hemoglobin was 8.1. She did state that while at [facility] she had received 2 blood transfusions. Patient type and screen was completed and she does show positive antibodies. After discussing this with blood bank they will have to send the patient's blood out for further testing for her to receive a transfusion. (Erin León) EKG Findings - EKG Comments: EKG Findings:: EKG performed at 1620 shows atrial fibrillation with occasional ventricular paced complexes with premature ventricular aberrantly conducted compresses. Nonspecific ST-T wave abnormality. Abnormal EKG. Ventricular rate of 80 bpm.. Rule out insect. She mormonism 96 most seconds. QT QTc is 408/4 and 93 ms. <Erin León - Last Filed: 03/31/19 18:56> Medical Decision Making - Lab Data Result diagrams: 03/31/19 17:55 03/31/19 15:03 <MauErin - Last Filed: 03/31/19 18:56> - Lab Data Result diagrams: 03/31/19 17:55 03/31/19 15:03 <John Fraire - Last Filed: 03/31/19 20:27> - Medical Decision Making PA attestation: I, Dr. John Fraire, personally saw and examined the patient. I have reviewed and agree with the resident/PA findings, including all diagnostic interpretations and treatment plans as written unless otherwise stated. I was present for the [place] portions of any procedures performed and inclusive time noted for any critical care statement. Patient was seen and evaluated along with family physician administrative library assistant. Briefly, patient was sent in from group home for abnormal outpatient labs. When initially presented to us patient's blood pressure was measured to be low. She is well-appearing and does not show any signs of shock. Blood pressure was closely monitored and improved after intravenous fluids. Labs are ordered and suggest sepsis. Blood pressure was monitored closely with improvement. White count 14.0. Patient had a lactic acidosis of 3.9. Urine was positive for UTI and cervical blood was positive. CT of the abdomen and pelvis was obtained with concerns of necrotizing wound to the posterior area. CT did not suggest any necrotizing skin wounds. Patient was moved to resuscitation bay for concerns of low blood pressure. She is reevaluated by her pressure improved. At this point I do not believe that troponin catheters indicated given the patient's well- appearing and blood pressures are improved. Discussed patient case with Dr. olivarez was who will accept patient's care. He requested infectious disease be consulted. Patient treated breath rectum antibiotics. She'll be placed on telemetry floor for SIRS/sepsis. (John Fraire) - Lab Data Lab Results 03/31/19 03/31/19 03/31/19 Range/Units 15:03 15:03 15:03 WBC 6.1 (3.8-10.6) k/uL RBC 4.81 (3.80-5.40) m/uL Hgb 15.0 D (11.4-16.0) gm/dL Hct 46.0 (34.0-46.0) % MCV 95.7 (80.0-100.0) fL MCH 31.1 (25.0-35.0) pg MCHC 32.5 (31.0-37.0) g/dL RDW 15.2 (11.5-15.5) % Plt Count 167 (150-450) k/uL Neutrophils % (Manual) 79 % Band Neutrophils % 11 % Lymphocytes % (Manual) 3 % Monocytes % (Manual) 7 % Eosinophils % (Manual) % Neutrophils # (Manual) 5.40 (1.3-7.7) k/uL Lymphocytes # (Manual) 0.18 L (1.0-4.8) k/uL Monocytes # (Manual) 0.43 (0-1.0) k/uL Eosinophils # (Manual) (0-0.7) k/uL Nucleated RBCs 0 (0-0) /100 WBC Manual Slide Review PT (9.0-12.0) sec INR (<1.2) APTT (22.0-30.0) sec Sodium 131 L (137-145) mmol/L Potassium 3.6 (3.5-5.1) mmol/L Chloride 96 L (98-107) mmol/L Carbon Dioxide 25 (22-30) mmol/L Anion Gap 10 mmol/L BUN 40 H (7-17) mg/dL Creatinine 1.13 H (0.52-1.04) mg/dL Est GFR (CKD-EPI)AfAm 54 (>60 ml/min/1.73 sqM) Est GFR (CKD-EPI)NonAf 47 (>60 ml/min/1.73 sqM) Glucose 143 H (74-99) mg/dL Lactic Ac Sepsis Rflx Plasma Lactic Acid Ranulfo 3.9 H* (0.7-2.0) mmol/L Calcium 8.6 (8.4-10.2) mg/dL Magnesium 2.0 (1.6-2.3) mg/dL Total Bilirubin 0.6 (0.2-1.3) mg/dL AST 28 (14-36) U/L ALT 14 (4-34) U/L Alkaline Phosphatase 99 (38-126) U/L Troponin I (0.000-0.034) ng/mL Total Protein 6.1 L (6.3-8.2) g/dL Albumin 2.7 L (3.5-5.0) g/dL Lipase 103 (23-300) U/L Urine Color Urine Appearance (Clear) Urine pH (5.0-8.0) Ur Specific [place] (1.001-1.035) Urine Protein (Negative) Urine Glucose (UA) (Negative) Urine Ketones (Negative) Urine Blood (Negative) Urine Nitrite (Negative) Urine Bilirubin (Negative) Urine Urobilinogen (<2.0) mg/dL Ur Leukocyte Esterase (Negative) Urine RBC (0-5) /hpf Urine WBC (0-5) /hpf Urine WBC Clumps (None) /hpf Ur Squamous Epith Cells (0-4) /hpf Urine Bacteria (None) /hpf Hyaline Casts (0-2) /lpf Urine Mucus (None) /hpf Urine Yeast (Budding) (None) /hpf Stool Occult Blood (Negative) Crossmatch 03/31/19 03/31/19 03/31/19 Range/Units 15:03 15:03 15:03 WBC (3.8-10.6) k/uL RBC (3.80-5.40) m/uL Hgb (11.4-16.0) gm/dL Hct (34.0-46.0) % MCV (80.0-100.0) fL MCH (25.0-35.0) pg MCHC (31.0-37.0) g/dL RDW (11.5-15.5) % Plt Count (150-450) k/uL Neutrophils % (Manual) % Band Neutrophils % % Lymphocytes % (Manual) % Monocytes % (Manual) % Eosinophils % (Manual) % Neutrophils # (Manual) (1.3-7.7) k/uL Lymphocytes # (Manual) (1.0-4.8) k/uL Monocytes # (Manual) (0-1.0) k/uL Eosinophils # (Manual) (0-0.7) k/uL Nucleated RBCs (0-0) /100 WBC Manual Slide Review PT 12.5 H (9.0-12.0) sec INR 1.2 H (<1.2) APTT 25.7 (22.0-30.0) sec Sodium (137-145) mmol/L Potassium (3.5-5.1) mmol/L Chloride (98-107) mmol/L Carbon Dioxide (22-30) mmol/L Anion Gap mmol/L BUN (7-17) mg/dL Creatinine (0.52-1.04) mg/dL Est GFR (CKD-EPI)AfAm (>60 ml/min/1.73 sqM) Est GFR (CKD-EPI)NonAf (>60 ml/min/1.73 sqM) Glucose (74-99) mg/dL Lactic Ac Sepsis Rflx Plasma Lactic Acid Ranulfo (0.7-2.0) mmol/L Calcium (8.4-10.2) mg/dL Magnesium (1.6-2.3) mg/dL Total Bilirubin (0.2-1.3) mg/dL AST (14-36) U/L ALT (4-34) U/L Alkaline Phosphatase (38-126) U/L Troponin I <0.012 (0.000-0.034) ng/mL Total Protein (6.3-8.2) g/dL Albumin (3.5-5.0) g/dL Lipase (23-300) U/L Urine Color Urine Appearance (Clear) Urine pH (5.0-8.0) Ur Specific [place] (1.001-1.035) Urine Protein (Negative) Urine Glucose (UA) (Negative) Urine Ketones (Negative) Urine Blood (Negative) Urine Nitrite (Negative) Urine Bilirubin (Negative) Urine Urobilinogen (<2.0) mg/dL Ur Leukocyte Esterase (Negative) Urine RBC (0-5) /hpf Urine WBC (0-5) /hpf Urine WBC Clumps (None) /hpf Ur Squamous Epith Cells (0-4) /hpf Urine Bacteria (None) /hpf Hyaline Casts (0-2) /lpf Urine Mucus (None) /hpf Urine Yeast (Budding) (None) /hpf Stool Occult Blood (Negative) Crossmatch See Detail 03/31/19 03/31/19 03/31/19 Range/Units 15:35 16:18 17:55 WBC 14.0 H (3.8-10.6) k/uL RBC 2.68 L (3.80-5.40) m/uL Hgb 8.1 L D (11.4-16.0) gm/dL Hct 25.9 L (34.0-46.0) % MCV 96.5 (80.0-100.0) fL MCH 30.1 (25.0-35.0) pg MCHC 31.2 (31.0-37.0) g/dL RDW 15.3 (11.5-15.5) % Plt Count 305 (150-450) k/uL Neutrophils % (Manual) 65 % Band Neutrophils % 12 % Lymphocytes % (Manual) 18 % Monocytes % (Manual) 3 % Eosinophils % (Manual) 2 % Neutrophils # (Manual) 10.70 H (1.3-7.7) k/uL Lymphocytes # (Manual) 2.52 (1.0-4.8) k/uL Monocytes # (Manual) 0.42 (0-1.0) k/uL Eosinophils # (Manual) 0.28 (0-0.7) k/uL Nucleated RBCs 0 (0-0) /100 WBC Manual Slide Review Performed PT (9.0-12.0) sec INR (<1.2) APTT (22.0-30.0) sec Sodium (137-145) mmol/L Potassium (3.5-5.1) mmol/L Chloride (98-107) mmol/L Carbon Dioxide (22-30) mmol/L Anion Gap mmol/L BUN (7-17) mg/dL Creatinine (0.52-1.04) mg/dL Est GFR (CKD-EPI)AfAm (>60 ml/min/1.73 sqM) Est GFR (CKD-EPI)NonAf (>60 ml/min/1.73 sqM) Glucose (74-99) mg/dL Lactic Ac Sepsis Rflx Y Plasma Lactic Acid [place] (0.7-2.0) mmol/L Calcium (8.4-10.2) mg/dL Magnesium (1.6-2.3) mg/dL Total Bilirubin (0.2-1.3) mg/dL AST (14-36) U/L ALT (4-34) U/L Alkaline Phosphatase (38-126) U/L Troponin I (0.000-0.034) ng/mL Total Protein (6.3-8.2) g/dL Albumin (3.5-5.0) g/dL Lipase (23-300) U/L Urine Color Urine Appearance (Clear) Urine pH (5.0-8.0) Ur Specific [place] (1.001-1.035) Urine Protein (Negative) Urine Glucose (UA) (Negative) Urine Ketones (Negative) Urine Blood (Negative) Urine Nitrite (Negative) Urine Bilirubin (Negative) Urine Urobilinogen (<2.0) mg/dL Ur Leukocyte Esterase (Negative) Urine RBC (0-5) /hpf Urine WBC (0-5) /hpf Urine WBC Clumps (None) /hpf Ur Squamous Epith Cells (0-4) /hpf Urine Bacteria (None) /hpf Hyaline Casts (0-2) /lpf Urine Mucus (None) /hpf Urine Yeast (Budding) (None) /hpf Stool Occult Blood Positive H (Negative) Crossmatch 03/31/19 Range/Units 18:10 WBC (3.8-10.6) k/uL RBC (3.80-5.40) m/uL Hgb (11.4-16.0) gm/dL Hct (34.0-46.0) % MCV (80.0-100.0) fL MCH (25.0-35.0) pg MCHC (31.0-37.0) g/dL RDW (11.5-15.5) % Plt Count (150-450) k/uL Neutrophils % (Manual) % Band Neutrophils % % Lymphocytes % (Manual) % Monocytes % (Manual) % Eosinophils % (Manual) % Neutrophils # (Manual) (1.3-7.7) k/uL Lymphocytes # (Manual) (1.0-4.8) k/uL Monocytes # (Manual) (0-1.0) k/uL Eosinophils # (Manual) (0-0.7) k/uL Nucleated RBCs (0-0) /100 WBC Manual Slide Review PT (9.0-12.0) sec INR (<1.2) APTT (22.0-30.0) sec Sodium (137-145) mmol/L Potassium (3.5-5.1) mmol/L Chloride (98-107) mmol/L Carbon Dioxide (22-30) mmol/L Anion Gap mmol/L BUN (7-17) mg/dL Creatinine (0.52-1.04) mg/dL Est GFR (CKD-EPI)AfAm (>60 ml/min/1.73 sqM) Est GFR (CKD-EPI)NonAf (>60 ml/min/1.73 sqM) Glucose (74-99) mg/dL Lactic Ac Sepsis Rflx Plasma Lactic Acid [place] (0.7-2.0) mmol/L Calcium (8.4-10.2) mg/dL Magnesium (1.6-2.3) mg/dL Total Bilirubin (0.2-1.3) mg/dL AST (14-36) U/L ALT (4-34) U/L Alkaline Phosphatase (38-126) U/L Troponin I (0.000-0.034) ng/mL Total Protein (6.3-8.2) g/dL Albumin (3.5-5.0) g/dL Lipase (23-300) U/L Urine Color Yellow Urine Appearance Cloudy H (Clear) Urine pH 6.5 (5.0-8.0) Ur Specific [place] 1.013 (1.001-1.035) Urine Protein Trace H (Negative) Urine Glucose (UA) Negative (Negative) Urine Ketones Negative (Negative) Urine Blood Moderate H (Negative) Urine Nitrite Negative (Negative) Urine Bilirubin Negative (Negative) Urine Urobilinogen <2.0 (<2.0) mg/dL Ur Leukocyte Esterase Large H (Negative) Urine RBC 69 H (0-5) /hpf Urine WBC 119 H (0-5) /hpf Urine WBC Clumps Many H (None) /hpf Ur Squamous Epith Cells <1 (0-4) /hpf Urine Bacteria Rare H (None) /hpf Hyaline Casts 1 (0-2) /lpf Urine Mucus Rare H (None) /hpf Urine Yeast (Budding) Few H (None) /hpf Stool Occult Blood (Negative) Crossmatch 03/31/19 18:54 EKG shows atrial fibrillation with occasional ventricular paced complexes with premature ventricular and really conducted complex is. Nonspecific ST and T wave abnormality. Abnormal EKG. Ventricular rate of 88 bpm. Verbal is undetected. QRS duration is 96 no seconds. QT QTc is 408 ms. (Erin León) Disposition <Erin León - Last Filed: 03/31/19 18:56> Decision Time: 20:27 <John Fraire - Last Filed: 03/31/19 20:27> Clinical Impression: Sepsis Disposition: ADMITTED IP TO THIS HOSP Condition: Critical Referrals: Manuel Olivarez MD [Primary Care Provider] - 1-2 days
[2019-03-31 15:31] LABS: Albumin 2.7 g/dL (3.5-5.0); Calcium 8.6 mg/dL (8.4-10.2); Potassium 3.6 mmol/L (3.5-5.1); Total Bilirubin 0.6 mg/dL (0.2-1.3); Total Protein 6.1 g/dL (6.3-8.2)
[2019-03-31 15:32] LABS: INR 1.2 (<1.2); Partial Thromboplastin Time 25.7 sec (22.0-30.0); Prothrombin Time 12.5 sec (9.0-12.0)
--- NOTE | 2019-03-31 15:39 | XR ---
EXAMINATION TYPE: XR chest 2V DATE OF EXAM: 03/31/2019 COMPARISON: 02/27/2019 INDICATION: Weakness TECHNIQUE: Frontal and lateral views of the chest are obtained. FINDINGS: The heart size is normal. The pulmonary vasculature is normal. The lungs are clear. There is elevation of the right diaphragm. Pacemaker overlies left chest. No pn eumothorax is evident post pacemaker placement. Slight increased kyphosis in the lateral view. IMPRESSION: 1. No acute pulmonary process.
[2019-03-31 15:40] LABS: MCH 31.1 pg (25.0-35.0); MCHC 32.5 g/dL (31.0-37.0); MCV 95.7 fL (80.0-100.0); Mean Platelet Volume 8.5; Platelet Count 167 k/uL (150-450); RBC 4.81 m/uL (3.80-5.40); RDW 15.2 % (11.5-15.5); WBC 6.1 k/uL (3.8-10.6)
[2019-03-31 16:06] LABS: Band Neutrophils % 11 %; Lymphocytes # (M) 0.18 k/uL (1.0-4.8); Monocytes # (M) 0.43 k/uL (0-1.0); Neutrophils % (M) 79 %; Nucleated Red Blood Cells 0 /100 WBC (0-0); Total Cells Counted 100
[2019-03-31 17:14] LABS: RBC 2.68 m/uL (3.80-5.40)
[2019-03-31 17:15] LABS: HCT 25.9 % (34.0-46.0); HGB 8.1 gm/dL (11.4-16.0); MCH 30.1 pg (25.0-35.0); MCHC 31.2 g/dL (31.0-37.0); MCV 96.5 fL (80.0-100.0); Platelet Count 305 k/uL (150-450); RDW 15.3 % (11.5-15.5)
[2019-03-31 17:42] LABS: Band Neutrophils % 12 %; Eosinophils # (M) 0.28 k/uL (0-0.7); Lymphocytes # (M) 2.52 k/uL (1.0-4.8); Monocytes # (M) 0.42 k/uL (0-1.0); Neutrophils % (M) 65 %; Nucleated Red Blood Cells 0 /100 WBC (0-0); Total Cells Counted 100
[2019-03-31] MEDS ORDERED: PIPERACILLIN-TAZOBACTAM 3.375 GM in SODIUM CHLORIDE 0.9% 100 ML IVPB STA (17:48)
[2019-03-31] MEDS ORDERED: SODIUM CHLORIDE 0.9% 1,000 ML IV ONE (17:48)
[2019-03-31] MEDS ORDERED: VANCOMYCIN IV PER PHARMACY 1 EACH MISC MISCELLANE PRN (18:33)
[2019-03-31 19:28] LABS: Appearance,Urine Cloudy (Clear); Bacteria,Urine Rare /hpf; Bilirubin,Urine Negative (Negative); Blood,Urine Moderate (Negative); Budding Yeast,Urine Few /hpf; Color,Urine Yellow; Glucose,Urine (UA) Negative (Negative); Hyaline Casts,Urine 1 /lpf (0-2); Ketones,Urine Negative (Negative); Leukocyte Esterase,Urine Large (Negative); Mucus,Urine Rare /hpf; Nitrite,Urine Negative (Negative); PH, Urine 6.5 (5.0-8.0); Protein,Urine Trace (Negative); RBC,Urine 69 /hpf (0-5); Specific Gravity,Urine 1.013 (1.001-1.035); Squamous Epithelial Cell,Urine <1 /hpf (0-4); Urobilinogen,Urine <2.0 mg/dL (<2.0); WBC,Urine 119 /hpf (0-5)
[2019-03-31] MEDS ORDERED: VANCOMYCIN 2,000 MG in SODIUM CHLORIDE 0.9% 500 ML 500 ML IVPB ONE (19:30)
--- NOTE | 2019-03-31 20:02 | CT ---
EXAMINATION TYPE: CT abdomen pelvis w con DATE OF EXAM: 03/31/2019 COMPARISON: 11/06/2011 HISTORY: abnormal labs bedsore CT DLP: 3734 mGycm Automated exposure control for dose reduction was used. CONTRAST: Performed with IV Contrast, patient injected with 80cc mL of Isovue 300. Multiple axial sections were obtained from the diaphragm to the floor the pelvis with IV contrast. There is mild atelectasis and scarring at the lung bases. Heart appears enlarged. Exam is limited by patient's size. There is elevation of the right diaphragm. The stomach is intact. Liver shows no foca l defect. Spleen is intact. There is no pancreatic mass. Gallbladder appears absent. The bile ducts are not dilated. There is no adrenal mass. Kidneys show satisfactory contrast opacification. There is a 2 cm cortical cyst posterior right kidne y. There is 1 cm cortical cyst lateral left kidney. There are multiple calculi in the right kidney an d a 2 cm dominant calculus at the right renal pelvis. There is no hydronephrosis. Ureters are not dil ated. There is metal artifact from left hip prosthesis. Bladder appears to distends smoothly. I see n o pelvic mass. There is no free fluid in the pelvis. Uterus is anteverted. There is no inguinal herni a. There is no mesenteric edema. There is no ascites or free air. There is no sign of a bowel obstructio n. Lumbar vertebra have normal alignment. There is no compression fracture. There is hypertrophic spu rring of the endplates. The bony pelvis appears intact. There is moderately severe osteoarthritis rig ht hip joint. IMPRESSION: Multiple nonobstructing right renal calculi significantly increased in size and number compared to ol d exam. No hydronephrosis. Severe osteoarthritis right hip joint. No sign of appendicitis. Appendix not definitely seen.
[2019-03-31] MEDS ORDERED: NALOXONE 0.4 MG/ML 1 ML VIAL IV PRN (20:23)
[2019-03-31] MEDS: SODIUM CHLORIDE 0.9% 130 ML IV SCH (20:51)
[2019-04-01] MEDS: SODIUM CHLORIDE 0.9% 130 ML IV SCH ×10 (01:22→11:11)
[2019-04-01] MEDS: PIPERACILLIN-TAZOBACTAM 3.375 GM in SODIUM CHLORIDE 0.9% 100 ML IVPB SCH ×3 (04:48→22:04)
[2019-04-01 06:22] LABS: Glucose,Whole Blood 169 mg/dL (75-99)
[2019-04-01 06:53] LABS: MCV 96.8 fL (80.0-100.0); Platelet Count 223 k/uL (150-450); RBC 2.06 m/uL (3.80-5.40); RDW 15.7 % (11.5-15.5); WBC 16.7 k/uL (3.8-10.6)
[2019-04-01 07:00] LABS: Calcium 7.8 mg/dL (8.4-10.2); Potassium 2.9 mmol/L (3.5-5.1)
[2019-04-01 07:07] LABS: HCT 19.9 % (34.0-46.0); HGB 6.2 gm/dL (11.4-16.0)
[2019-04-01 08:56] LABS: Glucose,Whole Blood 181 mg/dL (75-99)
[2019-04-01 09:22] LABS: Glucose,Whole Blood 174 mg/dL (75-99)
[2019-04-01] MEDS ORDERED: POTASSIUM CHLORIDE ER 20 MEQ TAB.ER PO STA (09:39)
[2019-04-01] MEDS ORDERED: POTASSIUM CHLORIDE 10 MEQ in WATER FOR INJECTION 1 100ML.BAG IVPB STA (09:48)
[2019-04-01 09:55] LABS: Basophils # (A) 0.3 k/uL (0-0.2); Basophils % (A) 2 %; Eosinophils # (A) 0.1 k/uL (0-0.7); Eosinophils % (A) 1 %; HCT 20.3 % (34.0-46.0); Lymphocytes % (A) 0 %; MCH 30.9 pg (25.0-35.0); MCHC 32.2 g/dL (31.0-37.0); MCV 95.9 fL (80.0-100.0); Mean Platelet Volume 8.2; Monocytes # (A) 0.3 k/uL (0-1.0); Monocytes % (A) 2 %; Neutrophils # (A) 15.5 k/uL (1.3-7.7); Neutrophils % (A) 95 %; Platelet Count 184 k/uL (150-450); RBC 2.12 m/uL (3.80-5.40); RDW 15.4 % (11.5-15.5); WBC 16.3 k/uL (3.8-10.6)
[2019-04-01 10:00] LABS: HGB 6.5 gm/dL (11.4-16.0)
[2019-04-01 10:11] LABS: Calcium 7.7 mg/dL (8.4-10.2); Potassium 3.4 mmol/L (3.5-5.1); Total Bilirubin 0.5 mg/dL (0.2-1.3); Total Protein 4.9 g/dL (6.3-8.2)
[2019-04-01] MEDS ORDERED: NOREPINEPHRINE 8 MG in SODIUM CHLORIDE 0.9% 250 ML IV SCH (10:45)
[2019-04-01] MEDS ORDERED: POTASSIUM CHLORIDE 10 MEQ in WATER FOR INJECTION 1 100ML.BAG IVPB ONE (11:00)
[2019-04-01 11:54] LABS: Glucose,Whole Blood 161 mg/dL (75-99)
[2019-04-01 12:39] VITALS: BP 84/49
--- NOTE | 2019-04-01 13:23 | P.CNPUL ---
History of Present Illness Consult date: 04/01/19 Requesting physician: Manuel Olivarez Reason for consult: other (Hypotension and profound anemia.) Chief complaint: Recheck abnormal labs. History of present illness: This is a 79-year-old female with history of multiple medical problems including hypertension, diabetes, hypothyroidism, vulvar cancer with radiation, chronic obstructive pulmonary disease, history of hip fracture on 02/28/2019, patient was referred to [facility] for her left hip pain, and on 03/02/2019, patient underwent left hip surgery at [facility]. Postoperatively patient had issues related to atrial fibrillation and RVR, treated mostly with beta blockers. She was eventually placed transferred to a rehab facility about a week ago. Apparently she had labs at her primary care physician office and her hemoglobin was around 8. Her hemoglobin on 02/22 was 13. And hemoglobin on 03/31 was 8.1. Patient had no symptoms to suggest any GI bleeding, she had no melena, no hematemesis, no black tarry stools, no nausea no vomiting no abdominal pain. Patient was admitted to the regular medical floor, repeat hemoglobin while on the floor was 6.5. Patient was also noted to be hypotensive. Blood pressure was as low as 76/56. Hence the rapid response team evaluated the patient this morning, and I was notified about the patient being hypotensive with a low hemoglobin of 6.5. Patient was given fluid boluses, ordered immediate transfer to the intensive care unit, also recommended at least 3 units of packed RBCs to be typed and crossed. And to be transfused as soon as possible. Starting with 1 unit of packed RBCs to begin with. Shortly after, the patient was brought in down to the ICU, I evaluated the patient, and she had no adequate peripheral access. Established right femoral triple-lumen catheter, patient has been on Eliquis, and the right femoral region was prepared in case if the patient deve lops any bleeding . Not to mention the patient is morbidly obese, and venous access is not easy. Patient was given more fluid boluses, there was a bit of delay in blood availability, hence I recommended norepinephrine if necessary to maintain a mean arterial pressure above 60. During my evaluation, the patient was basically asymptomatic. She had no cough, no wheezing, no shortness of breath, no chest pain, no nausea no vomiting no abdominal pain, no melena, no hematemesis. Patient has a chronic skin condition with generalized exfoliation of the skin. According to the patient this is chronic. Review of Systems Constitutional: Negative. HEENT: Negative. Pulmonary: Negative. Cardiac: Negative. GI: Negative. Genitourinary: Negative. Hematologic: Anemia as noted in HPI. History of deep vein thrombosis, maintained on anticoagulation therapy. Musculoskeletal: Recent left hip surgery for hip fracture done at [facility]. Skin: Chronic exfoliation of the skin./Exfoliation of the outer skin layer. Neurologic: No headache blurred vision no dizziness. Psychiatric: No symptoms of active depression. Endocrine: History of diabetes, no cold or heat intolerance. Past Medical History Past Medical History: Atrial Fibrillation, Cancer, COPD, Diabetes Mellitus, Deep Vein Thrombosis (DVT), Hypertension, Osteoarthritis (OA), Skin Disorder, Sleep Apnea/CPAP/BIPAP, Thyroid Disorder Additional Past Medical History / Comment(s): Hx. of wound rt leg, hx vulvar cancer, gout. History of Any Multi-Drug Resistant Organisms: MRSA Date of last positivie culture/infection: 2011 MDRO Source:: rt leg wound Past Surgical History: Appendectomy, Cholecystectomy, Tonsillectomy Additional Past Surgical History / Comment(s): tubal , Colonoscopy, D&C. Past Anesthesia/Blood Transfusion Reactions: Postoperative Nausea & Vomiting (PONV) Past Psychological History: No Psychological Hx Reported Smoking Status: Former smoker Past Alcohol Use History: None Reported Additional Past Alcohol Use History / Comment(s): Patient was a smoker and quit 40 years ago. She denies any marijuana, street drug or alcohol use. She currently lives at home with her oldest son and grandson. 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 Past Drug Use History: None Reported - Past Family History Mother Family Medical History: Cancer Additional Family Medical History / Comment(s): colon Father Family Medical History: Cancer Additional Family Medical History / Comment(s): skin Medications and Allergies Home Medications Medication Instructions Recorded Confirmed Type Furosemide [Lasix] 40 mg PO DAILY@0800 08/27/14 03/31/19 History metFORMIN HCL [Glucophage] 500 mg PO BID 08/27/14 03/31/19 History Ergocalciferol (Vitamin D2) 50,000 unit PO CANSECO 02/22/19 03/31/19 History [Drisdol] Levothyroxine Sodium [Synthroid] 75 mcg PO DAILY 02/22/19 03/31/19 History Acetaminophen [Tylenol 8 Hour] 650 mg PO Q6H PRN 03/31/19 03/31/19 History Allopurinol [Zyloprim] 100 mg PO DAILY 03/31/19 03/31/19 History Apixaban [Eliquis] 5 mg PO BID@08,199903/31/19 03/31/19 History Benzocaine/Menthol Lozeng [Cepacol 1 each MUCOUS MEM Q4HR PRN 03/31/19 03/31/19 History lozenge] Budesonide/Formoterol Fumarate 2 puff INHALATION RT-BID 03/31/19 03/31/19 History [Symbicort 80-4.5 Mcg Inhaler] Hydrocodone/Acetaminophen [Pringle 1 tab PO Q4HR PRN 03/31/19 03/31/19 History 5-325] Ipratropium-Albuterol Nebulize 3 ml INHALATION RT-Q6H PRN 03/31/19 03/31/19 History [Duoneb 0.5 mg-3 mg/3 ml Soln] Lactobacillus Acidophilus 1 tab PO DAILY@79903/31/19 03/31/19 History [Acidophilus] Loperamide [Imodium] 2 mg PO QID PRN 03/31/19 03/31/19 History Losartan [Cozaar] 25 mg PO DAILY@79903/31/19 03/31/19 History Medroxyprogesterone Acetate 10 mg PO DAILY@79903/31/19 03/31/19 History [Provera] Methocarbamol [Robaxin] 500 mg PO TID 03/31/19 03/31/19 History Metoprolol Tartrate [Lopressor] 100 mg PO BID 03/31/19 03/31/19 History Omeprazole 20 mg PO HS 03/31/19 03/31/19 History guaiFENesin-DM 100-10MG/5ML 10 ml PO Q4H PRN 03/31/19 03/31/19 History [Robitussin DM] Allergies Allergy/AdvReac Type Severity Reaction Status Date / Time adhesive tape Allergy Rash/Hives Verified 03/31/19 22:34 cephalexin monohydrate Allergy Rash/Hives Verified 03/31/19 22:34 [From Keflex] Physical Exam Vitals: Vital Signs Temp Pulse Pulse Resp BP BP Pulse Ox 04/01/19 11:45 98.2 F 90 21 84/49 04/01/19 11:31 98.1 F 91 20 85/41 100 04/01/19 11:01 98.2 F 99 19 76/36 04/01/19 11:00 98.2 F 98 19 76/36 100 04/01/19 10:51 98.3 F 89 21 76/37 100 04/01/19 10:30 102 H 19 99 04/01/19 10:00 60 26 H 115/55 99 04/01/19 09:30 102 H 27 H 155/114 99 04/01/19 09:20 108 H 57 H 04/01/19 08:00 98.3 F 78 18 60/38 96 04/01/19 03:12 98 F 109 H 18 108/55 97 04/01/19 00:08 77 18 100/43 100 04/01/19 00:00 97.1 F L 101 H 17 119/50 99 03/31/19 22:29 98.1 F 84 18 98/73 100 03/31/19 20:13 97.9 F 102 H 18 106/58 95 03/31/19 19:00 125/87 03/31/19 18:57 101 H 22 125/87 98 03/31/19 18:55 93 18 107/74 03/31/19 18:45 101 H 20 102/66 98 03/31/19 18:40 102 H 22 102/64 98 03/31/19 18:30 108 H 18 67/20 96 03/31/19 18:00 106 H 16 83/45 92 L 03/31/19 17:30 105 H 18 67/52 79 L 03/31/19 17:00 100 20 67/52 70 L 03/31/19 16:30 106 H 20 67/52 03/31/19 16:00 103 H 18 86/57 51 L 03/31/19 15:30 104 H 88/56 03/31/19 15:00 100 88/38 92 L 03/31/19 14:53 97 03/31/19 14:47 97.9 F 58 L 24 88/38 96 Intake and Output 03/31/19 04/01/19 04/01/19 22:59 06:59 14:59 Intake Total 360 1310 Output Total 750 700 300 Balance -750 -340 1010 Intake: IV 1000 0.9 1000 Oral 360 Blood Product 310 Rc Irr As1 Unit 310 [id number] Output: Urine 750 700 300 Uretheral (Chan) 750 Other: Weight 127.913 kg 135.5 kg ABP, PAP, CO, CI - Last 8 Hours Arterial Blood Pressure 71/33 Arterial Blood Pressure 86/39 General appearance: Revealed 79-year-old female morbidly obese, in no distress. Head exam: Atraumatic, normocephalic. Eye exam: PERRLA, EOMI, no icterus. Pale conjunctiva. ENT exam: Dry mucous membranes, no neck masses, no JVD. Neck exam: Short obese neck, no neck masses, no stridor, no cervical lymphadenopathy. Respiratory exam: Symmetrical chest expansion, no crackles or rhonchi or wheezes. Diminished breath sounds at the bases. Cardiovascular Exam: Normal S1 and S2, no S3 gallop, no murmur. GI/Abdominal exam: Obese, soft nontender, no megaly, no rebound, no guarding. External exam:Patient has multiple large pressure ulcers over her buttocks and near rectum. Extremities exam: No clubbing 1+ bipedal edema, no cyanosis. Neurological exam: Alert, oriented 3, no gross focal neurologic deficits. Psychiatric exam: Normal mood, affect and normal mental status examination. Skin exam: Dry flaking skin on over, multiple superficial abrasions in the abdominal wall near the groin area. Results - Laboratory Findings CBC and BMP: 04/01/19 09:38 04/01/19 09:23 PT/INR, D-dimer PT 12.5 sec (9.0-12.0) H 03/31/19 15:03 INR 1.2 (<1.2) H 03/31/19 15:03 Abnormal lab findings: Abnormal Labs 03/31/19 03/31/19 03/31/19 15:03 15:03 15:03 WBC RBC Hgb Hct RDW Neutrophils # Neutrophils # (Manual) Lymphocytes # Lymphocytes # (Manual) 0.18 L Basophils # PT INR Sodium 131 L Potassium Chloride 96 L Carbon Dioxide BUN 40 H Creatinine 1.13 H Glucose 143 H POC Glucose (mg/dL) Plasma Lactic Acid Ranulfo 3.9 H* Calcium Total Protein 6.1 L Albumin 2.7 L Urine Appearance Urine Protein Urine Blood Ur Leukocyte Esterase Urine RBC Urine WBC Urine WBC Clumps Urine Bacteria Urine Mucus Urine Yeast (Budding) Stool Occult Blood Crossmatch 03/31/19 03/31/19 03/31/19 15:03 15:03 16:18 WBC RBC Hgb Hct RDW Neutrophils # Neutrophils # (Manual) Lymphocytes # Lymphocytes # (Manual) Basophils # PT 12.5 H INR 1.2 H Sodium Potassium Chloride Carbon Dioxide BUN Creatinine Glucose POC Glucose (mg/dL) Plasma Lactic Acid Ranulfo Calcium Total Protein Albumin Urine Appearance Urine Protein Urine Blood Ur Leukocyte Esterase Urine RBC Urine WBC Urine WBC Clumps Urine Bacteria Urine Mucus Urine Yeast (Budding) Stool Occult Blood Positive H Crossmatch See Detail 03/31/19 03/31/19 03/31/19 17:55 17:55 18:10 WBC 14.0 H RBC 2.68 L Hgb 8.1 L D Hct 25.9 L RDW Neutrophils # Neutrophils # (Manual) 10.70 H Lymphocytes # Lymphocytes # (Manual) Basophils # PT INR Sodium Potassium Chloride Carbon Dioxide BUN Creatinine Glucose POC Glucose (mg/dL) Plasma Lactic Acid Ranulfo Calcium Total Protein Albumin Urine Appearance Cloudy H Urine Protein Trace H Urine Blood Moderate H Ur Leukocyte Esterase Large H Urine RBC 69 H Urine WBC 119 H Urine WBC Clumps Many H Urine Bacteria Rare H Urine Mucus Rare H Urine Yeast (Budding) Few H Stool Occult Blood Crossmatch See Detail 04/01/19 04/01/19 04/01/19 06:08 06:08 06:20 WBC 16.7 H RBC 2.06 L Hgb 6.2 L* D Hct 19.9 L* RDW 15.7 H Neutrophils # Neutrophils # (Manual) Lymphocytes # Lymphocytes # (Manual) Basophils # PT INR Sodium 133 L Potassium 2.9 L Chloride Carbon Dioxide 21 L BUN 34 H Creatinine Glucose 164 H POC Glucose (mg/dL) 169 H Plasma Lactic Acid Ranulfo Calcium 7.8 L Total Protein Albumin Urine Appearance Urine Protein Urine Blood Ur Leukocyte Esterase Urine RBC Urine WBC Urine WBC Clumps Urine Bacteria Urine Mucus Urine Yeast (Budding) Stool Occult Blood Crossmatch 04/01/19 04/01/19 04/01/19 08:55 09:21 09:23 WBC RBC Hgb Hct RDW Neutrophils # Neutrophils # (Manual) Lymphocytes # Lymphocytes # (Manual) Basophils # PT INR Sodium 136 L Potassium 3.4 L Chloride Carbon Dioxide BUN 35 H Creatinine Glucose 147 H POC Glucose (mg/dL) 181 H 174 H Plasma Lactic Acid Ranulfo Calcium 7.7 L Total Protein 4.9 L Albumin 2.0 L Urine Appearance Urine Protein Urine Blood Ur Leukocyte Esterase Urine RBC Urine WBC Urine WBC Clumps Urine Bacteria Urine Mucus Urine Yeast (Budding) Stool Occult Blood Crossmatch 04/01/19 04/01/19 09:38 11:53 WBC 16.3 H RBC 2.12 L Hgb 6.5 L* Hct 20.3 L RDW Neutrophils # 15.5 H Neutrophils # (Manual) Lymphocytes # 0.0 L Lymphocytes # (Manual) Basophils # 0.3 H PT INR Sodium Potassium Chloride Carbon Dioxide BUN Creatinine Glucose POC Glucose (mg/dL) 161 H Plasma Lactic Acid Ranulfo Calcium Total Protein Albumin Urine Appearance Urine Protein Urine Blood Ur Leukocyte Esterase Urine RBC Urine WBC Urine WBC Clumps Urine Bacteria Urine Mucus Urine Yeast (Budding) Stool Occult Blood Crossmatch - Diagnostic Findings Chest x-ray: image reviewed (Chest x-ray showed no evidence of acute process. Pacemaker is noted.) Additional studies: CT of the abdomen and pelvis showed unremarkable findings except for multiple nonobstructing right renal calculi. Assessment and Plan Assessment: Impression: Severe anemia, most likely secondary to GI blood losses, stool occult was positive Hypotension secondary to anemia. Possible urinary tract infection as noted on the urinalysis. Morbid obesity. Chronic atrial fibrillation requiring ablation Benign essential hypertension Type 2 diabetes History of vulvar cancer with radiation History of recent left hip fracture/repair. 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 Degenerative joint disorder. Hypothyroidism. Obstructive sleep apnea syndrome, patient is on CPAP. History of gout. 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 Recommendation: Patient was transferred to the ICU. Venous access was established with a central line placed in the right groin. Will transfuse to keep hemoglobin above 7 at all times. We'll give fluids for hypotension and if no improvement with fluids and blood, will start norepinephrine. Empiric antibiotics for presumptive urinary tract infection. Hold anticoagulation therapy for now. GI prophylaxis. GI consultation. DVT prophylaxis with Venodyne boots. And compression stockings. Patient to use her own CPAP/BiPAP at night. Resume home meds. We'll continue to follow. Prognosis is relatively guarded. Time with Patient: Greater than 30
[2019-04-01] MEDS ORDERED: IPRATROPIUM-ALBUTEROL 3 ML NEB INHALATION PRN (13:24)
[2019-04-01 14:35] VITALS: BMI 54.6
--- NOTE | 2019-04-01 15:56 | P.HPIM ---
History of Present Illness H&P Date: 04/01/19 Jerilyn Valencia is a 79-year-old female well known to my practice, currently residing at the [place] [facility] after hip surgery who was transferred to [facility] emergency room due to worsening condition with anemia and hypotension and generalized weakness, patient was evaluated in emergency room and admitted to medical floor with telemetry, however blood pressure was low and patient was transferred to intensive care unit. Patient has evidence of anemia which has been progressive since the time of her recent hip surgery at [facility], she also has evidence of urinary tract infection and leukocytosis suggestive of sepsis. Patient was admitted to the hospital she was started on IV antibiotic Zosyn and vancomycin, serial CBCs were ordered and hemoglobin was down from 8.12 6.5 1 unit of red blood cell transfusion was ordered. Past medical history significant for recent left hip fracture patient was evaluated at [facility], she was high surgical risk and was transferred to [facility] where she underwent surgery and was transferred back to local [place] [facility] for further treatment, patient also has known history of morbid obesity, decubitus ulcer, diabetes mellitus type 2, paroxysmal atrial fibrillation, chronic obstructive pulmonary disease and asthma. On review of system patient is alert and oriented 3 in no apparent distress, she is complaining of generalized weakness otherwise she denies any complaints t here is no fever or chills no headache or dizziness no chest pain no shortness of breath no cough no nausea or vomiting no abdominal pain no diarrhea no burning with urination no frequency or urgency and no hematuria patient denies any blood in her stools. Past Medical History Past Medical History: Atrial Fibrillation, Cancer, COPD, Diabetes Mellitus, Deep Vein Thrombosis (DVT), Hypertension, Osteoarthritis (OA), Skin Disorder, Sleep Apnea/CPAP/BIPAP, Thyroid Disorder Additional Past Medical History / Comment(s): Hx. of wound rt leg, hx vulvar cancer, gout. History of Any Multi-Drug Resistant Organisms: MRSA Date of last positivie culture/infection: 2011 MDRO Source:: rt leg wound Past Surgical History: Appendectomy, Cholecystectomy, Tonsillectomy Additional Past Surgical History / Comment(s): tubal , Colonoscopy, D&C. Past Anesthesia/Blood Transfusion Reactions: Postoperative Nausea & Vomiting (PONV) Past Psychological History: No Psychological Hx Reported Smoking Status: Former smoker Past Alcohol Use History: None Reported Additional Past Alcohol Use History / Comment(s): Patient was a smoker and quit 40 years ago. She denies any marijuana, street drug or alcohol use. She currently lives at home with her oldest son and grandson. 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 Past Drug Use History: None Reported - Past Family History Mother Family Medical History: Cancer Additional Family Medical History / Comment(s): colon Father Family Medical History: Cancer Additional Family Medical History / Comment(s): skin Medications and Allergies Home Medications Medication Instructions Recorded Confirmed Type Furosemide [Lasix] 40 mg PO DAILY@0800 08/27/14 03/31/19 History metFORMIN HCL [Glucophage] 500 mg PO BID 08/27/14 03/31/19 History Ergocalciferol (Vitamin D2) 50,000 unit PO CANSECO 02/22/19 03/31/19 History [Drisdol] Levothyroxine Sodium [Synthroid] 75 mcg PO DAILY 02/22/19 03/31/19 History Acetaminophen [Tylenol 8 Hour] 650 mg PO Q6H PRN 03/31/19 03/31/19 History Allopurinol [Zyloprim] 100 mg PO DAILY 03/31/19 03/31/19 History Apixaban [Eliquis] 5 mg PO BID@0800,199903/31/19 03/31/19 History Benzocaine/Menthol Lozeng [Cepacol 1 each MUCOUS MEM Q4HR PRN 03/31/19 03/31/19 History lozenge] Budesonide/Formoterol Fumarate 2 puff INHALATION RT-BID 03/31/19 03/31/19 History [Symbicort 80-4.5 Mcg Inhaler] Hydrocodone/Acetaminophen [[place] 1 tab PO Q4HR PRN 03/31/19 03/31/19 History 5-325] Ipratropium-Albuterol Nebulize 3 ml INHALATION RT-Q6H PRN 03/31/19 03/31/19 History [Duoneb 0.5 mg-3 mg/3 ml Soln] Lactobacillus Acidophilus 1 tab PO DAILY@0800 03/31/19 03/31/19 History [Acidophilus] Loperamide [Imodium] 2 mg PO QID PRN 03/31/19 03/31/19 History Losartan [Cozaar] 25 mg PO DAILY@0800 03/31/19 03/31/19 History Medroxyprogesterone Acetate 10 mg PO DAILY@0800 03/31/19 03/31/19 History [Provera] Methocarbamol [Robaxin] 500 mg PO TID 03/31/19 03/31/19 History Metoprolol Tartrate [Lopressor] 100 mg PO BID 03/31/19 03/31/19 History Omeprazole 20 mg PO HS 03/31/19 03/31/19 History guaiFENesin-DM 100-10MG/5ML 10 ml PO Q4H PRN 03/31/19 03/31/19 History [Robitussin DM] Allergies Allergy/AdvReac Type Severity Reaction Status Date / Time adhesive tape Allergy Rash/Hives Verified 03/31/19 22:34 cephalexin monohydrate Allergy Rash/Hives Verified 03/31/19 22:34 [From Keflex] Physical Exam Vitals: Vital Signs Temp Pulse Pulse Resp BP BP Pulse Ox 04/01/19 15:00 78 17 99 04/01/19 14:30 98 16 99 04/01/19 14:00 89 17 99 04/01/19 13:30 81 19 99 04/01/19 13:00 83 17 99 04/01/19 12:30 92 18 99 04/01/19 12:00 98.1 F 112 H 19 99 04/01/19 11:45 98.2 F 90 21 84/49 04/01/19 11:31 98.1 F 91 20 85/41 100 04/01/19 11:30 96 16 100 04/01/19 11:01 98.2 F 99 19 76/36 04/01/19 11:00 98.2 F 98 19 76/36 100 04/01/19 10:51 98.3 F 89 21 76/37 100 04/01/19 10:30 102 H 19 99 04/01/19 10:00 60 26 H 115/55 99 04/01/19 09:30 102 H 27 H 155/114 99 04/01/19 09:20 108 H 57 H 04/01/19 08:00 98.3 F 78 18 60/38 96 04/01/19 03:12 98 F 109 H 18 108/55 97 04/01/19 00:08 77 18 100/43 100 04/01/19 00:00 97.1 F L 101 H 17 119/50 99 03/31/19 22:29 98.1 F 84 18 98/73 100 03/31/19 20:13 97.9 F 102 H 18 106/58 95 03/31/19 19:00 125/87 03/31/19 18:57 101 H 22 125/87 98 03/31/19 18:55 93 18 107/74 03/31/19 18:45 101 H 20 102/66 98 03/31/19 18:40 102 H 22 102/64 98 03/31/19 18:30 108 H 18 67/20 96 03/31/19 18:00 106 H 16 83/45 92 L 03/31/19 17:30 105 H 18 67/52 79 L 03/31/19 17:00 100 20 67/52 70 L 03/31/19 16:30 106 H 20 67/52 03/31/19 16:00 103 H 18 86/57 51 L Intake and Output 04/01/19 04/01/19 04/01/19 06:59 14:59 22:59 Intake Total 360 1310 Output Total 700 300 Balance -340 1010 Intake: IV 1000 0.9 1000 Oral 360 Blood Product 310 Rc Irr As1 Unit 310 [id number] Output: Urine 700 300 Other: Weight 135.5 kg 135.5 kg ABP, PAP, CO, CI - Last 8 Hours Arterial Blood Pressure 123/59 Arterial Blood Pressure 77/35 Arterial Blood Pressure 114/53 Arterial Blood Pressure 92/46 Arterial Blood Pressure 94/51 Arterial Blood Pressure 81/42 Arterial Blood Pressure 80/39 Arterial Blood Pressure 71/33 Arterial Blood Pressure 86/39 In general patient is alert and oriented 3 answering questions appropriately HEENT head normocephalic and atraumatic Neck is supple no JVD no goiter no lymphadenopathy Chest exam reveals a scattered crackles bilaterally no wheezing Cardiac exam reveals regular heart sounds S1 and S2 no gallops no murmurs Abdomen is soft nontender no organomegaly with normal bowel sounds Extremity exam reveals no edema no cyanosis or clubbing Neurological examination reveals no gross focal deficit Skin exam reveals pressure areas on the back stage I Results CBC & Chem 7: 04/01/19 09:38 04/01/19 09:23 Labs: Abnormal Lab Results - Last 24 Hours (Table) 03/31/19 03/31/19 03/31/19 Range/Units 15:03 15:03 16:18 WBC (3.8-10.6) k/uL RBC (3.80-5.40) m/uL Hgb (11.4-16.0) gm/dL Hct (34.0-46.0) % RDW (11.5-15.5) % Neutrophils # (1.3-7.7) k/uL Neutrophils # (Manual) (1.3-7.7) k/uL Lymphocytes # (1.0-4.8) k/uL Lymphocytes # (Manual) 0.18 L (1.0-4.8) k/uL Basophils # (0-0.2) k/uL Sodium (137-145) mmol/L Potassium (3.5-5.1) mmol/L Carbon Dioxide (22-30) mmol/L BUN (7-17) mg/dL Glucose (74-99) mg/dL POC Glucose (mg/dL) (75-99) mg/dL Calcium (8.4-10.2) mg/dL Total Protein (6.3-8.2) g/dL Albumin (3.5-5.0) g/dL Urine Appearance (Clear) Urine Protein (Negative) Urine Blood (Negative) Ur Leukocyte Esterase (Negative) Urine RBC (0-5) /hpf Urine WBC (0-5) /hpf Urine WBC Clumps (None) /hpf Urine Bacteria (None) /hpf Urine Mucus (None) /hpf Urine Yeast (Budding) (None) /hpf Stool Occult Blood Positive H (Negative) Crossmatch See Detail 03/31/19 03/31/19 03/31/19 Range/Units 17:55 17:55 18:10 WBC 14.0 H (3.8-10.6) k/uL RBC 2.68 L (3.80-5.40) m/uL Hgb 8.1 L D (11.4-16.0) gm/dL Hct 25.9 L (34.0-46.0) % RDW (11.5-15.5) % Neutrophils # (1.3-7.7) k/uL Neutrophils # (Manual) 10.70 H (1.3-7.7) k/uL Lymphocytes # (1.0-4.8) k/uL Lymphocytes # (Manual) (1.0-4.8) k/uL Basophils # (0-0.2) k/uL Sodium (137-145) mmol/L Potassium (3.5-5.1) mmol/L Carbon Dioxide (22-30) mmol/L BUN (7-17) mg/dL Glucose (74-99) mg/dL POC Glucose (mg/dL) (75-99) mg/dL Calcium (8.4-10.2) mg/dL Total Protein (6.3-8.2) g/dL Albumin (3.5-5.0) g/dL Urine Appearance Cloudy H (Clear) Urine Protein Trace H (Negative) Urine Blood Moderate H (Negative) Ur Leukocyte Esterase Large H (Negative) Urine RBC 69 H (0-5) /hpf Urine WBC 119 H (0-5) /hpf Urine WBC Clumps Many H (None) /hpf Urine Bacteria Rare H (None) /hpf Urine Mucus Rare H (None) /hpf Urine Yeast (Budding) Few H (None) /hpf Stool Occult Blood (Negative) Crossmatch See Detail 04/01/19 04/01/19 04/01/19 Range/Units 06:08 06:08 06:20 WBC 16.7 H (3.8-10.6) k/uL RBC 2.06 L (3.80-5.40) m/uL Hgb 6.2 L* D (11.4-16.0) gm/dL Hct 19.9 L* (34.0-46.0) % RDW 15.7 H (11.5-15.5) % Neutrophils # (1.3-7.7) k/uL Neutrophils # (Manual) (1.3-7.7) k/uL Lymphocytes # (1.0-4.8) k/uL Lymphocytes # (Manual) (1.0-4.8) k/uL Basophils # (0-0.2) k/uL Sodium 133 L (137-145) mmol/L Potassium 2.9 L (3.5-5.1) mmol/L Carbon Dioxide 21 L (22-30) mmol/L BUN 34 H (7-17) mg/dL Glucose 164 H (74-99) mg/dL POC Glucose (mg/dL) 169 H (75-99) mg/dL Calcium 7.8 L (8.4-10.2) mg/dL Total Protein (6.3-8.2) g/dL Albumin (3.5-5.0) g/dL Urine Appearance (Clear) Urine Protein (Negative) Urine Blood (Negative) Ur Leukocyte Esterase (Negative) Urine RBC (0-5) /hpf Urine WBC (0-5) /hpf Urine WBC Clumps (None) /hpf Urine Bacteria (None) /hpf Urine Mucus (None) /hpf Urine Yeast (Budding) (None) /hpf Stool Occult Blood (Negative) Crossmatch 04/01/19 04/01/19 04/01/19 Range/Units 08:55 09:21 09:23 WBC (3.8-10.6) k/uL RBC (3.80-5.40) m/uL Hgb (11.4-16.0) gm/dL Hct (34.0-46.0) % RDW (11.5-15.5) % Neutrophils # (1.3-7.7) k/uL Neutrophils # (Manual) (1.3-7.7) k/uL Lymphocytes # (1.0-4.8) k/uL Lymphocytes # (Manual) (1.0-4.8) k/uL Basophils # (0-0.2) k/uL Sodium 136 L (137-145) mmol/L Potassium 3.4 L (3.5-5.1) mmol/L Carbon Dioxide (22-30) mmol/L BUN 35 H (7-17) mg/dL Glucose 147 H (74-99) mg/dL POC Glucose (mg/dL) 181 H 174 H (75-99) mg/dL Calcium 7.7 L (8.4-10.2) mg/dL Total Protein 4.9 L (6.3-8.2) g/dL Albumin 2.0 L (3.5-5.0) g/dL Urine Appearance (Clear) Urine Protein (Negative) Urine Blood (Negative) Ur Leukocyte Esterase (Negative) Urine RBC (0-5) /hpf Urine WBC (0-5) /hpf Urine WBC Clumps (None) /hpf Urine Bacteria (None) /hpf Urine Mucus (None) /hpf Urine Yeast (Budding) (None) /hpf Stool Occult Blood (Negative) Crossmatch 04/01/19 04/01/19 Range/Units 09:38 11:53 WBC 16.3 H (3.8-10.6) k/uL RBC 2.12 L (3.80-5.40) m/uL Hgb 6.5 L* (11.4-16.0) gm/dL Hct 20.3 L (34.0-46.0) % RDW (11.5-15.5) % Neutrophils # 15.5 H (1.3-7.7) k/uL Neutrophils # (Manual) (1.3-7.7) k/uL Lymphocytes # 0.0 L (1.0-4.8) k/uL Lymphocytes # (Manual) (1.0-4.8) k/uL Basophils # 0.3 H (0-0.2) k/uL Sodium (137-145) mmol/L Potassium (3.5-5.1) mmol/L Carbon Dioxide (22-30) mmol/L BUN (7-17) mg/dL Glucose (74-99) mg/dL POC Glucose (mg/dL) 161 H (75-99) mg/dL Calcium (8.4-10.2) mg/dL Total Protein (6.3-8.2) g/dL Albumin (3.5-5.0) g/dL Urine Appearance (Clear) Urine Protein (Negative) Urine Blood (Negative) Ur Leukocyte Esterase (Negative) Urine RBC (0-5) /hpf Urine WBC (0-5) /hpf Urine WBC Clumps (None) /hpf Urine Bacteria (None) /hpf Urine Mucus (None) /hpf Urine Yeast (Budding) (None) /hpf Stool Occult Blood (Negative) Crossmatch Microbiology - Last 24 Hours (Table) 03/31/19 18:10 Urine Culture - Preliminary Urine,Catheterized Thrombosis Risk Factor Assmnt - Choose All That Apply Any of the Below Risk Factors Present?: Yes Each Factor Represents 1 point: Abnormal pulmonary function (COPD), Obesity (BMI >25), Sepsis (< 1month), Swollen legs (current) Other Risk Factors: Yes Each Risk Factor Represents 3 Points: Age 75 years or older Other congenital or acquired thrombophilia - If yes, enter type in comment: No Thrombosis Risk Factor Assessment Total Risk Factor Score: 7 Thrombosis Risk Factor Assessment Level: High Risk Assessment and Plan Plan: #1 anemia, likely postoperative iron deficiency anemia, no evidence of bleeding since surgery #2 urinary tract infection with sepsis, currently maintained on IV Zosyn and IV vancomycin awaiting culture results infectious disease consultation was requested #3 hypotension likely related to sepsis patient is admitted to intensive care unit she is getting IV fluid and she will be started on IV pressors #4 underlying history of diabetes mellitus type 2 #5 underlying history of morbid obesity #6 underlying history of pressure ulcers on the back #7 underlying history of recent fall with left hip fracture status post surgery at [facility] At this time patient is admitted to intensive care unit, continue with IV fluid, IV antibiotic, patient will be started on IV pressors 1 unit of red blood cell transfusion was ordered Will monitor blood counts, labs closely Critical care consultation and infectious disease consultation requested Prognosis is guarded due to age and multiple underlying comorbidities.
[2019-04-01 16:06] LABS: Basophils # (A) 0.3 k/uL (0-0.2); Basophils % (A) 2 %; Eosinophils # (A) 0.1 k/uL (0-0.7); Eosinophils % (A) 0 %; HCT 24.9 % (34.0-46.0); Lymphocytes # (A) 0.1 k/uL (1.0-4.8); Lymphocytes % (A) 0 %; MCH 31.1 pg (25.0-35.0); MCHC 32.6 g/dL (31.0-37.0); MCV 95.3 fL (80.0-100.0); Mean Platelet Volume 7.5; Monocytes # (A) 0.7 k/uL (0-1.0); Monocytes % (A) 3 %; Neutrophils % (A) 93 %; Platelet Count 334 k/uL (150-450); RBC 2.61 m/uL (3.80-5.40); RDW 15.7 % (11.5-15.5); WBC 22.7 k/uL (3.8-10.6)
[2019-04-01 16:13] LABS: HGB 8.1 gm/dL (11.4-16.0)
[2019-04-01 16:24] LABS: Calcium 7.8 mg/dL (8.4-10.2); Potassium 3.7 mmol/L (3.5-5.1)
[2019-04-01] MEDS ORDERED: VANCOMYCIN 2,000 MG in SODIUM CHLORIDE 0.9% 500 ML 500 ML IVPB SCH (21:00)
[2019-04-01] MEDS ORDERED: PANTOPRAZOLE 40 MG/10 ML VIAL IVP SCH (21:00)
[2019-04-01] MEDS ORDERED: LORazepam 2 MG/ML INJ IV PRN (21:20)
--- NOTE | 2019-04-01 21:42 | P.CONS ---
History of Present Illness - Reason for Consult Consult date: 04/01/19 sepsis Requesting physician: Manuel Olivarez - Chief Complaint weakness and abnormal labs x 1 day - History of Present Illness Patient is a 79-year female who is status post left hip fracture repair done at [facility] subsequently patient has been counseled to move and was to call for rehabilitation patient was sent to the ER at [facility] yesterday for evaluation of abnormal labs the patient was noticed to have hemoglobin down to 7.1 patient feeling weak and tired and no energy with the symptom had the patient was sent to the ER for further evaluation on arrival to the ER the patient has been afebrile and remains to be afebrile however the patient was to be hypertensive initially with a systolic of 86 and down to 71 patient has received multiple blood transfusions multiple fluid and blood transfusion sats were okay patient noticed to have have a hemoglobin of 6.2 did have significant drop from hemoglobin 15, patient did have a CT of abdominal pelvis which did shows multiple nonobstructing renal stones she also have a positive UA, blood cultures obtained which are currently pending, patient has a time evaluation has been complaining of feeling weak and tired flushing the hospital denies having headache no chest pain some shortness of breath no cough abdominal pain patient did have a pressure ulcer of the sacral area she has been complaining of pain associated with it antibiotic multivitamin for the most information has been obtained from review the chart by the nursing staff patient also was not a good historian. Review of Systems Positive point has been mentioned in HPI complete review could not be obtained because of underlying mental status Past Medical History Past Medical History: Atrial Fibrillation, Cancer, COPD, Diabetes Mellitus, Deep Vein Thrombosis (DVT), Hypertension, Osteoarthritis (OA), Skin Disorder, Sleep Apnea/CPAP/BIPAP, Thyroid Disorder Additional Past Medical History / Comment(s): Hx. of wound rt leg, hx vulvar cancer, gout. History of Any Multi-Drug Resistant Organisms: MRSA Year Discovered:: 2011 MDRO Source:: rt leg wound Past Surgical History: Appendectomy, Cholecystectomy, Tonsillectomy Additional Past Surgical History / Comment(s): tubal , Colonoscopy, D&C. Past Anesthesia/Blood Transfusion Reactions: Postoperative Nausea & Vomiting (PONV) Past Psychological History: No Psychological Hx Reported Smoking Status: Former smoker Past Alcohol Use History: None Reported Additional Past Alcohol Use History / Comment(s): Patient was a smoker and quit 40 years ago. She denies any marijuana, street drug or alcohol use. She currently lives at home with her oldest son and grandson. 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 Past Drug Use History: None Reported - Past Family History Mother Family Medical History: Cancer Additional Family Medical History / Comment(s): colon Father Family Medical History: Cancer Additional Family Medical History / Comment(s): skin Medications and Allergies Home Medications Medication Instructions Recorded Confirmed Type Furosemide [Lasix] 40 mg PO DAILY@0800 08/27/14 03/31/19 History metFORMIN HCL [Glucophage] 500 mg PO BID 08/27/14 03/31/19 History Ergocalciferol (Vitamin D2) 50,000 unit PO CANSECO 02/22/19 03/31/19 History [Drisdol] Levothyroxine Sodium [Synthroid] 75 mcg PO DAILY 02/22/19 03/31/19 History Acetaminophen [Tylenol 8 Hour] 650 mg PO Q6H PRN 03/31/19 03/31/19 History Allopurinol [Zyloprim] 100 mg PO DAILY 03/31/19 03/31/19 History Apixaban [Eliquis] 5 mg PO BID@0800,199903/31/19 03/31/19 History Benzocaine/Menthol Lozeng [Cepacol 1 each MUCOUS MEM Q4HR PRN 03/31/19 03/31/19 History lozenge] Budesonide/Formoterol Fumarate 2 puff INHALATION RT-BID 03/31/19 03/31/19 History [Symbicort 80-4.5 Mcg Inhaler] Hydrocodone/Acetaminophen [[place] 1 tab PO Q4HR PRN 03/31/19 03/31/19 History 5-325] Ipratropium-Albuterol Nebulize 3 ml INHALATION RT-Q6H PRN 03/31/19 03/31/19 History [Duoneb 0.5 mg-3 mg/3 ml Soln] Lactobacillus Acidophilus 1 tab PO DAILY@0800 03/31/19 03/31/19 History [Acidophilus] Loperamide [Imodium] 2 mg PO QID PRN 03/31/19 03/31/19 History Losartan [Cozaar] 25 mg PO DAILY@0800 03/31/19 03/31/19 History Medroxyprogesterone Acetate 10 mg PO DAILY@0800 03/31/19 03/31/19 History [Provera] Methocarbamol [Robaxin] 500 mg PO TID 03/31/19 03/31/19 History Metoprolol Tartrate [Lopressor] 100 mg PO BID 03/31/19 03/31/19 History Omeprazole 20 mg PO HS 03/31/19 03/31/19 History guaiFENesin-DM 100-10MG/5ML 10 ml PO Q4H PRN 03/31/19 03/31/19 History [Robitussin DM] Allergies Allergy/AdvReac Type Severity Reaction Status Date / Time adhesive tape Allergy Rash/Hives Verified 03/31/19 22:34 cephalexin monohydrate Allergy Rash/Hives Verified 03/31/19 22:34 [From Keflex] Physical Exam Vitals: Vital Signs Temp Pulse Pulse Resp BP BP Pulse Ox 04/01/19 11:01 98.2 F 99 19 76/36 04/01/19 11:00 98.2 F 99 19 76/36 100 04/01/19 10:51 98.3 F 89 21 76/37 100 04/01/19 08:00 98.3 F 78 18 60/38 96 04/01/19 03:12 98 F 109 H 18 108/55 97 04/01/19 00:08 77 18 100/43 100 04/01/19 00:00 97.1 F L 101 H 17 119/50 99 03/31/19 22:29 98.1 F 84 18 98/73 100 03/31/19 20:13 97.9 F 102 H 18 106/58 95 03/31/19 18:57 101 H 22 125/87 98 03/31/19 18:55 100 20 107/74 03/31/19 18:45 101 H 20 102/66 98 03/31/19 18:40 102 H 22 102/64 98 03/31/19 18:30 108 H 18 67/20 96 03/31/19 18:00 106 H 16 83/45 92 L 03/31/19 17:30 105 H 18 67/52 79 L 03/31/19 17:00 100 20 67/52 70 L 03/31/19 16:30 106 H 20 67/52 03/31/19 16:00 103 H 18 86/57 51 L 03/31/19 15:30 104 H 88/56 03/31/19 15:00 100 88/38 92 L 03/31/19 14:53 97 03/31/19 14:47 97.9 F 58 L 24 88/38 96 Intake and Output 03/31/19 04/01/19 04/01/19 22:59 06:59 14:59 Intake Total 360 0 Output Total 750 700 Balance -750 -340 0 Intake: Oral 360 Blood Product 0 Rc Irr As1 Unit 0 [id number] Output: Urine 750 700 Uretheral (Chan) 750 Other: Weight 127.913 kg 135.5 kg GENERAL DESCRIPTION: Elderly female lying in bed, no distress. No tachypnea or accessory muscle of respiration use. HEENT: Shows Pallor , no scleral icterus. Oral mucous membrane is dry. NECK: Trachea central, no thyromegaly. LUNGS: Unlabored breathing. Decreased breath sound at the base. No wheeze or crackle. HEART: S1, S2, regular rate and rhythm. ABDOMEN: Soft, no tenderness , guarding or rigidity EXTREMITIES: Diffuse swelling both lower extremity sKIN: Patient had did have a stage III sacral pressure ulcer with slough tissue no significant surrounding edema or any foul-smelling drainage. NEUROLOGICAL: The patient is awake, alert, oriented x2, mood and affect normal. Results CBC & Chem 7: 04/01/19 15:51 04/01/19 15:51 Labs: Abnormal Lab Results - Last 24 Hours (Table) 03/31/19 03/31/19 03/31/19 Range/Units 15:03 15:03 15:03 WBC (3.8-10.6) k/uL RBC (3.80-5.40) m/uL Hgb (11.4-16.0) gm/dL Hct (34.0-46.0) % RDW (11.5-15.5) % Neutrophils # (1.3-7.7) k/uL Neutrophils # (Manual) (1.3-7.7) k/uL Lymphocytes # (1.0-4.8) k/uL Lymphocytes # (Manual) 0.18 L (1.0-4.8) k/uL Basophils # (0-0.2) k/uL PT (9.0-12.0) sec INR (<1.2) Sodium 131 L (137-145) mmol/L Potassium (3.5-5.1) mmol/L Chloride 96 L (98-107) mmol/L Carbon Dioxide (22-30) mmol/L BUN 40 H (7-17) mg/dL Creatinine 1.13 H (0.52-1.04) mg/dL Glucose 143 H (74-99) mg/dL POC Glucose (mg/dL) (75-99) mg/dL Plasma Lactic Acid Ranulfo 3.9 H* (0.7-2.0) mmol/L Calcium (8.4-10.2) mg/dL Total Protein 6.1 L (6.3-8.2) g/dL Albumin 2.7 L (3.5-5.0) g/dL Urine Appearance (Clear) Urine Protein (Negative) Urine Blood (Negative) Ur Leukocyte Esterase (Negative) Urine RBC (0-5) /hpf Urine WBC (0-5) /hpf Urine WBC Clumps (None) /hpf Urine Bacteria (None) /hpf Urine Mucus (None) /hpf Urine Yeast (Budding) (None) /hpf Stool Occult Blood (Negative) Crossmatch 03/31/19 03/31/19 03/31/19 Range/Units 15:03 15:03 16:18 WBC (3.8-10.6) k/uL RBC (3.80-5.40) m/uL Hgb (11.4-16.0) gm/dL Hct (34.0-46.0) % RDW (11.5-15.5) % Neutrophils # (1.3-7.7) k/uL Neutrophils # (Manual) (1.3-7.7) k/uL Lymphocytes # (1.0-4.8) k/uL Lymphocytes # (Manual) (1.0-4.8) k/uL Basophils # (0-0.2) k/uL PT 12.5 H (9.0-12.0) sec INR 1.2 H (<1.2) Sodium (137-145) mmol/L Potassium (3.5-5.1) mmol/L Chloride (98-107) mmol/L Carbon Dioxide (22-30) mmol/L BUN (7-17) mg/dL Creatinine (0.52-1.04) mg/dL Glucose (74-99) mg/dL POC Glucose (mg/dL) (75-99) mg/dL Plasma Lactic Acid Ranulfo (0.7-2.0) mmol/L Calcium (8.4-10.2) mg/dL Total Protein (6.3-8.2) g/dL Albumin (3.5-5.0) g/dL Urine Appearance (Clear) Urine Protein (Negative) Urine Blood (Negative) Ur Leukocyte Esterase (Negative) Urine RBC (0-5) /hpf Urine WBC (0-5) /hpf Urine WBC Clumps (None) /hpf Urine Bacteria (None) /hpf Urine Mucus (None) /hpf Urine Yeast (Budding) (None) /hpf Stool Occult Blood Positive H (Negative) Crossmatch See Detail 03/31/19 03/31/19 03/31/19 Range/Units 17:55 17:55 18:10 WBC 14.0 H (3.8-10.6) k/uL RBC 2.68 L (3.80-5.40) m/uL Hgb 8.1 L D (11.4-16.0) gm/dL Hct 25.9 L (34.0-46.0) % RDW (11.5-15.5) % Neutrophils # (1.3-7.7) k/uL Neutrophils # (Manual) 10.70 H (1.3-7.7) k/uL Lymphocytes # (1.0-4.8) k/uL Lymphocytes # (Manual) (1.0-4.8) k/uL Basophils # (0-0.2) k/uL PT (9.0-12.0) sec INR (<1.2) Sodium (137-145) mmol/L Potassium (3.5-5.1) mmol/L Chloride (98-107) mmol/L Carbon Dioxide (22-30) mmol/L BUN (7-17) mg/dL Creatinine (0.52-1.04) mg/dL Glucose (74-99) mg/dL POC Glucose (mg/dL) (75-99) mg/dL Plasma Lactic Acid Ranulfo (0.7-2.0) mmol/L Calcium (8.4-10.2) mg/dL Total Protein (6.3-8.2) g/dL Albumin (3.5-5.0) g/dL Urine Appearance Cloudy H (Clear) Urine Protein Trace H (Negative) Urine Blood Moderate H (Negative) Ur Leukocyte Esterase Large H (Negative) Urine RBC 69 H (0-5) /hpf Urine WBC 119 H (0-5) /hpf Urine WBC Clumps Many H (None) /hpf Urine Bacteria Rare H (None) /hpf Urine Mucus Rare H (None) /hpf Urine Yeast (Budding) Few H (None) /hpf Stool Occult Blood (Negative) Crossmatch See Detail 04/01/19 04/01/19 04/01/19 Range/Units 06:08 06:08 06:20 WBC 16.7 H (3.8-10.6) k/uL RBC 2.06 L (3.80-5.40) m/uL Hgb 6.2 L* D (11.4-16.0) gm/dL Hct 19.9 L* (34.0-46.0) % RDW 15.7 H (11.5-15.5) % Neutrophils # (1.3-7.7) k/uL Neutrophils # (Manual) (1.3-7.7) k/uL Lymphocytes # (1.0-4.8) k/uL Lymphocytes # (Manual) (1.0-4.8) k/uL Basophils # (0-0.2) k/uL PT (9.0-12.0) sec INR (<1.2) Sodium 133 L (137-145) mmol/L Potassium 2.9 L (3.5-5.1) mmol/L Chloride (98-107) mmol/L Carbon Dioxide 21 L (22-30) mmol/L BUN 34 H (7-17) mg/dL Creatinine (0.52-1.04) mg/dL Glucose 164 H (74-99) mg/dL POC Glucose (mg/dL) 169 H (75-99) mg/dL Plasma Lactic Acid Ranulfo (0.7-2.0) mmol/L Calcium 7.8 L (8.4-10.2) mg/dL Total Protein (6.3-8.2) g/dL Albumin (3.5-5.0) g/dL Urine Appearance (Clear) Urine Protein (Negative) Urine Blood (Negative) Ur Leukocyte Esterase (Negative) Urine RBC (0-5) /hpf Urine WBC (0-5) /hpf Urine WBC Clumps (None) /hpf Urine Bacteria (None) /hpf Urine Mucus (None) /hpf Urine Yeast (Budding) (None) /hpf Stool Occult Blood (Negative) Crossmatch 04/01/19 04/01/19 04/01/19 Range/Units 08:55 09:21 09:23 WBC (3.8-10.6) k/uL RBC (3.80-5.40) m/uL Hgb (11.4-16.0) gm/dL Hct (34.0-46.0) % RDW (11.5-15.5) % Neutrophils # (1.3-7.7) k/uL Neutrophils # (Manual) (1.3-7.7) k/uL Lymphocytes # (1.0-4.8) k/uL Lymphocytes # (Manual) (1.0-4.8) k/uL Basophils # (0-0.2) k/uL PT (9.0-12.0) sec INR (<1.2) Sodium 136 L (137-145) mmol/L Potassium 3.4 L (3.5-5.1) mmol/L Chloride (98-107) mmol/L Carbon Dioxide (22-30) mmol/L BUN 35 H (7-17) mg/dL Creatinine (0.52-1.04) mg/dL Glucose 147 H (74-99) mg/dL POC Glucose (mg/dL) 181 H 174 H (75-99) mg/dL Plasma Lactic Acid Ranulfo (0.7-2.0) mmol/L Calcium 7.7 L (8.4-10.2) mg/dL Total Protein 4.9 L (6.3-8.2) g/dL Albumin 2.0 L (3.5-5.0) g/dL Urine Appearance (Clear) Urine Protein (Negative) Urine Blood (Negative) Ur Leukocyte Esterase (Negative) Urine RBC (0-5) /hpf Urine WBC (0-5) /hpf Urine WBC Clumps (None) /hpf Urine Bacteria (None) /hpf Urine Mucus (None) /hpf Urine Yeast (Budding) (None) /hpf Stool Occult Blood (Negative) Crossmatch 04/01/19 Range/Units 09:38 WBC 16.3 H (3.8-10.6) k/uL RBC 2.12 L (3.80-5.40) m/uL Hgb 6.5 L* (11.4-16.0) gm/dL Hct 20.3 L (34.0-46.0) % RDW (11.5-15.5) % Neutrophils # 15.5 H (1.3-7.7) k/uL Neutrophils # (Manual) (1.3-7.7) k/uL Lymphocytes # 0.0 L (1.0-4.8) k/uL Lymphocytes # (Manual) (1.0-4.8) k/uL Basophils # 0.3 H (0-0.2) k/uL PT (9.0-12.0) sec INR (<1.2) Sodium (137-145) mmol/L Potassium (3.5-5.1) mmol/L Chloride (98-107) mmol/L Carbon Dioxide (22-30) mmol/L BUN (7-17) mg/dL Creatinine (0.52-1.04) mg/dL Glucose (74-99) mg/dL POC Glucose (mg/dL) (75-99) mg/dL Plasma Lactic Acid Ranulfo (0.7-2.0) mmol/L Calcium (8.4-10.2) mg/dL Total Protein (6.3-8.2) g/dL Albumin (3.5-5.0) g/dL Urine Appearance (Clear) Urine Protein (Negative) Urine Blood (Negative) Ur Leukocyte Esterase (Negative) Urine RBC (0-5) /hpf Urine WBC (0-5) /hpf Urine WBC Clumps (None) /hpf Urine Bacteria (None) /hpf Urine Mucus (None) /hpf Urine Yeast (Budding) (None) /hpf Stool Occult Blood (Negative) Crossmatch Microbiology - Last 24 Hours (Table) 03/31/19 18:10 Urine Culture - Preliminary Urine,Catheterized Assessment and Plan Assessment: 1-patient presented hospital with abnormal labs this patient did have significant drop in hemoglobin to 6.2 and also have significant hypertension could be more likely to hypovolemia as the patient did not have significant fever underlying infection especially did not get excluded likely from enteric gram-negative pathogen and less likely gram-positive 2-patient with stage III sacral pressure ulcer no evidence of any cellulitis 3-recent left hip surgery surgical incision with no significant cellulitis (1) UTI (urinary tract infection) Current Visit: Yes Status: Acute Code(s): N39.0 - URINARY TRACT INFECTION, SITE NOT SPECIFIED SNOMED Code(s): 81889831 (2) Stage 3 skin ulcer of sacral region Current Visit: Yes Status: Acute Code(s): L98.429 - NON-PRESSURE CHRONIC ULCER OF BACK WITH UNSPECIFIED SEVERITY SNOMED Code(s): 02713002 (3) Sepsis Current Visit: Yes Status: Acute Code(s): A41.9 - SEPSIS, UNSPECIFIED ORGANISM SNOMED Code(s): 73962976 Plan: 1-patient will be continued Zosyn 3.75 g every 8 hours however discontinue vancomycin to decrease risk of nephrotoxicity clinic suspicion low for gram- positive infection 2-local wound care to sacral wound with the eugene honey followed by moist dressing keep the area dry and of the pressure 3-eugene honey to the upper end of the left hip surgical incision We will follow on clinical condition and cultures to further adjust medication if needed Thank you for this consultation we will follow the patient along with you Time with Patient: Greater than 30
[2019-04-01] MEDS ORDERED: MORPHINE SULFATE (100 MG/2 ML) 100 MG in SODIUM CHLORIDE 0.9% 100 ML IV SCH (22:00)
[2019-04-01 22:10] VITALS: PULSE 107; RESP 23; TEMP 98.9
--- NOTE | 2019-04-01 23:16 | PCN ---
PROCEDURE NOTE OPERATIVE REPORT: Placement of the right femoral triple-lumen catheter. PREOPERATIVE DIAGNOSES: Hypotension, and gastrointestinal bleeding, and severe anemia. POSTOPERATIVE DIAGNOSIS: Hypotension, and gastrointestinal bleeding, and severe anemia. ANESTHESIA USED: 2 mL of 1% lidocaine. PROCEDURE: The patient was also placed in a supine position, the right groin was prepared in a sterile fashion and drapes were applied. The area was locally anesthetized with lidocaine, then the right femoral vein was easily cannulated with a needle, and a guidewire was placed. The area around the guidewire was dilated using the dilator. Then a triple-lumen catheter was inserted over the guidewire, and the guidewire was removed. Good blood flow was noted in the 3 different ports of the triple-lumen catheter. Procedure was well tolerated. No evidence of any immediate complications. Line was secured using 3.0 silk sutures. MMODL / IJN: [id number] /
--- NOTE | 2019-04-01 23:16 | PCN ---
PROCEDURE NOTE OPERATIVE REPORT: Placement of the left brachial arterial line. PREOPERATIVE DIAGNOSES: Hypotension, anemia, and gastrointestinal bleeding. POSTOPERATIVE DIAGNOSES: Hypotension, anemia, and gastrointestinal bleeding. ANESTHESIA: Used none deployed. PROCEDURE DETAILS: The patient was placed in a supine position, the left brachial area was prepared in a sterile fashion and drapes were applied. The left brachial artery was palpated, cannulated easily and a guidewire was placed. A Cook's catheter was inserted over the guidewire, and the guidewire was removed. Good blood flow and good waveform noted, no evidence of any immediate complications. Line was secured using 3.0 silk sutures. MMODL / IJN: [id number] /
--- NOTE | 2019-04-05 11:12 | P.DS ---
Providers Date of admission: 03/31/19 20:24 Expected date of discharge: 04/01/19 Attending physician: Manuel Olivarez Consults: 03/31/19 20:24 Consult Physician Routine Consulting Provider: Esperanza Franklin Consult Reason/Comments: ID type patient Do you want consulting provider notified?: Yes 04/01/19 09:09 Consult Physician Stat Consulting Provider: Pricilla Morales Consult Reason/Comments: ICU management Do you want consulting provider notified?: Yes Consult Physician Urgent Consulting Provider: Hyacinth Sifuentes Consult Reason/Comments: positive occult Do you want consulting provider notified?: Yes Primary care physician: Manuel Olivarez [facility] Course: Discharge Diagnosis Patient declining any further medical intervention. [facility] diagnosis sepsis #1 anemia, likely postoperative iron deficiency anemia, no evidence of bleeding since surgery #2 urinary tract infection with sepsis, currently maintained on IV Zosyn and IV vancomycin awaiting culture results infectious disease consultation was requested #3 hypotension likely related to sepsis patient is admitted to intensive care unit she is getting IV fluid and she will be started on IV pressors #4 underlying history of diabetes mellitus type 2 #5 underlying history of morbid obesity #6 underlying history of pressure ulcers on the back #7 underlying history of recent fall with left hip fracture status post surgery at [facility] Pratima Valencia is a 79-year-old female well known to my practice, currently residing [facility] [place] [facility] after hip surgery who was transferred to [facility] emergency room due to worsening condition with anemia and hypotension and generalized weakness, patient was evaluated in emergency room and admitted to medical floor with telemetry, however blood pressure was low and patient was transferred to intensive care unit. Patient has evidence of anemia which has been progressive since the time of her recent hip surgery at [facility], she also has evidence of urinary tract infection and leukocytosis suggestive of sepsis. Patient was admitted to the hospital she was started on IV antibiotic Zosyn and vancomycin, serial CBCs were ordered and hemoglobin was down from 8.12 6.5 1 unit of red blood cell transfusion was ordered. Past medical history significant for recent left hip fracture patient was evaluated at [facility], she was high surgical risk and was transferred to [facility] where she underwent surgery and was transferred back to local [place] [facility] for further treatment, patient also has known history of morbid obesity, decubitus ulcer, diabetes mellitus type 2, paroxysmal atrial fibrillation, chronic obstructive pulmonary disease and asthma. On review of system patient is alert and oriented 3 in no apparent distress, she is complaining of generalized weakness otherwise she denies any complaints there is no fever or chills no headache or dizziness no chest pain no shortness of breath no cough no nausea or vomiting no abdominal pain no diarrhea no burn ing with urination no frequency or urgency and no hematuria patient denies any blood in her stools. Patient declining any further medical interventions. requesting admission to hospice care Plan - Discharge Summary Discharge Rx Participant: No New Discharge Prescriptions: No Action LORazepam [Ativan] 0.5 mg SUBLINGUAL Q4H PRN tab PRN Reason: Agitation Or Acute Anxiety Atropine Ophth Soln 1% 5Ml [Isopto Atropine 1% 5Ml] 2 drops SUBLINGUAL Q4HR PRN bottle PRN Reason: Excess Secretions Discharge Medication List Atropine Ophth Soln 1% 5Ml [Isopto Atropine 1% 5Ml] 2 drops SUBLINGUAL Q4HR PRN bottle 04/04/19 [Rx] LORazepam [Ativan] 0.5 mg SUBLINGUAL Q4H PRN tab 04/04/19 [Rx] Follow up Appointment(s)/Referral(s): Manuel Olivarez MD [Primary Care Provider] - 1-2 days Discharge Disposition: TRANSFER TO SHORT TERM HOSP
== END 2019-04-01 22:56 | disposition short-term general hospital (02) | DRG 871 ==
LOC: EC 14:18 → 3SCARD 20:24 → 2SICU 04-01 09:15
PROVIDERS: ADMIT Internal Medicine; ATTEND Internal Medicine
PROC: 30233N1 Transfusion of Nonautologous Red Blood Cells into Peripheral Vein, Percutaneous Approach (ICD-10-PCS; principal; 2019-04-01)
PROC: 06HM33Z Insertion of Infusion Device into Right Femoral Vein, Percutaneous Approach (ICD-10-PCS; 2019-04-01)
PROC: 03HY32Z Insertion of Monitoring Device into Upper Artery, Percutaneous Approach (ICD-10-PCS; 2019-04-01)
PROC: 4A133J1 Monitoring of Arterial Pulse, Peripheral, Percutaneous Approach (ICD-10-PCS; 2019-04-01)
PROC: 4A133B1 Monitoring of Arterial Pressure, Peripheral, Percutaneous Approach (ICD-10-PCS; 2019-04-01)
DX: A41.59 Other Gram-negative sepsis (principal); L89.153 Pressure ulcer of sacral region, stage 3; N39.0 Urinary tract infection, site not specified; Z68.43 Body mass index [BMI] 50.0-59.9, adult; E87.2 Acidosis; I48.20 Chronic atrial fibrillation, unspecified; K92.1 Melena; D50.9 Iron deficiency anemia, unspecified; E03.9 Hypothyroidism, unspecified; E11.9 Type 2 diabetes mellitus without complications; E66.01 Morbid (severe) obesity due to excess calories; G47.33 Obstructive sleep apnea (adult) (pediatric); Z99.89 Dependence on other enabling machines and devices; I10 Essential (primary) hypertension; I48.0 Paroxysmal atrial fibrillation; J44.9 Chronic obstructive pulmonary disease, unspecified; Z79.01 Long term (current) use of anticoagulants; Z79.51 Long term (current) use of inhaled steroids; Z79.82 Long term (current) use of aspirin; Z79.84 Long term (current) use of oral hypoglycemic drugs; Z79.890 Hormone replacement therapy; Z79.899 Other long term (current) drug therapy; Z85.44 Personal history of malignant neoplasm of other female genital organs; Z86.718 Personal history of other venous thrombosis and embolism; Z87.891 Personal history of nicotine dependence; S72.002D Fracture of unspecified part of neck of left femur, subsequent encounter for closed fracture with routine healing; Z98.890 Other specified postprocedural states; Z92.3 Personal history of irradiation; L98.8 Other specified disorders of the skin and subcutaneous tissue; M10.9 Gout, unspecified; M19.90 Unspecified osteoarthritis, unspecified site; Z86.14 Personal history of Methicillin resistant Staphylococcus aureus infection
CPT/HCPCS: 36415; 51702; 71046; 74177; 80048; 80053; 81001; 82272; 83605; 83690; 83735; 84484; 85025; 85027; 85610; 85730; 86850; 86860; 86870; 86880; 86900; 86901; 86902; 86920; 86971; 87040; 87077; 87086; 87186; 93005; 96361; 96365; 96366; 96367; 96375; 99285

== ENCOUNTER 2019-04-01 22:51 | Inpatient (IN) | payer MEDICAID ==
[2019-04-01] MEDS ORDERED: ATROPINE OPHTH SOLN 1% 5ML BTL SUBLINGUAL PRN (23:03)
[2019-04-01] MEDS ORDERED: LORazepam 2 MG/ML INJ IV PRN (23:03)
[2019-04-01] MEDS ORDERED: ONDANSETRON 4 MG/2 ML VIAL IVP PRN (23:03)
[2019-04-01] MEDS ORDERED: MORPHINE SULFATE 4 MG/ML SYRINGE IV PRN (23:03)
[2019-04-01] MEDS ORDERED: ACETAMINOPHEN SUPPOSITORY 650 MG SUPP RECTAL PRN (23:03)
[2019-04-02 07:05] VITALS: BP 70/39; TEMP 98.7
[2019-04-02] MEDS: MORPHINE SULFATE (100 MG/2 ML) 100 MG in SODIUM CHLORIDE 0.9% 100 ML IV SCH ×2 (11:19→23:32)
--- NOTE | 2019-04-02 12:26 | P.HPIM ---
History of Present Illness H&P Date: 04/02/19 Jerilyn Valencia is a 79-year-old female well known to my practice, who sustained a fall on 02/22/2019 she came to emergency room and had evidence of acute supple F left femoral neck fracture with impaction and lateral displacement, she was admitted to [facility], she was evaluated by orthopedic surgery and cardiology but was deemed to be high surgical risk, she was transferred to [facility] where she underwent surgery on her left hip and was transferred back to local [facility] for rehabilitation, patient developed evidence of urinary tract infection, anemia, and stage I decubitus ulcers on her back, she was transferred back to [facility] and was admitted initially to telemetry floor, however she had evidence of sepsis and was transferred to intensive care unit, patient was started on IV antibiotic, IV fluids, and IV pressors, however after several hours in intensive care unit patient made it clear to her nurse that she does not wish to continue with any of the current treatment including antibiotic, fluids, and pressors, she was requesting to be on Comfort care only. At that time her medications were discontinued and she was transferred to medical floor, consultation with hospice was initiated, patient was started on IV morphine and IV Ativan for comfort. Past Medical History Past Medical History: Atrial Fibrillation, Cancer, COPD, Diabetes Mellitus, Deep Vein Thrombosis (DVT), Hypertension, Osteoarthritis (OA), Skin Disorder, Sleep Apnea/CPAP/BIPAP, Thyroid Disorder Additional Past Medical History / Comment(s): Hx. of wound rt leg, hx vulvar cancer, gout. History of Any Multi-Drug Resistant Organisms: MRSA Date of last positivie culture/infection: 2011 MDRO Source:: rt leg wound Past Surgical History: Appendectomy, Cholecystectomy, Tonsillectomy Additional Past Surgical History / Comment(s): tubal , Colonoscopy, D&C. Past Anesthesia/Blood Transfusion Reactions: Postoperative Nausea & Vomiting (PONV) Past Psychological History: No Psychological Hx Reported Smoking Status: Former smoker Past Alcohol Use History: None Reported Additional Past Alcohol Use History / Comment(s): Patient was a smoker and quit 40 years ago. She denies any marijuana, street drug or alcohol use. She currently lives at home with her oldest son and grandson. 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 Past Drug Use History: None Reported - Past Family History Mother Family Medical History: Cancer Additional Family Medical History / Comment(s): colon Father Family Medical History: Cancer Additional Family Medical History / Comment(s): skin Medications and Allergies Home Medications Medication Instructions Recorded Confirmed Type Furosemide [Lasix] 40 mg PO DAILY@79908/27/14 04/01/19 History metFORMIN HCL [Glucophage] 500 mg PO BID 08/27/14 04/01/19 History Ergocalciferol (Vitamin D2) 50,000 unit PO CANSECO 02/22/19 04/01/19 History [Drisdol] Levothyroxine Sodium [Synthroid] 75 mcg PO DAILY 02/22/19 04/01/19 History Acetaminophen [Tylenol 8 Hour] 650 mg PO Q6H PRN 03/31/19 04/01/19 History Allopurinol [Zyloprim] 100 mg PO DAILY 03/31/19 04/01/19 History Apixaban [Eliquis] 5 mg PO BID@799,199903/31/19 04/01/19 History Benzocaine/Menthol Lozeng [Cepacol 1 each MUCOUS MEM Q4HR PRN 03/31/19 04/01/19 History lozenge] Budesonide/Formoterol Fumarate 2 puff INHALATION RT-BID 03/31/19 04/01/19 History [Symbicort 80-4.5 Mcg Inhaler] Hydrocodone/Acetaminophen [[place] 1 tab PO Q4HR PRN 03/31/19 04/01/19 History 5-325] Ipratropium-Albuterol Nebulize 3 ml INHALATION RT-Q6H PRN 03/31/19 04/01/19 History [Duoneb 0.5 mg-3 mg/3 ml Soln] Lactobacillus Acidophilus 1 tab PO DAILY@79903/31/19 04/01/19 History [Acidophilus] Loperamide [Imodium] 2 mg PO QID PRN 03/31/19 04/01/19 History Losartan [Cozaar] 25 mg PO DAILY@79903/31/19 04/01/19 History Medroxyprogesterone Acetate 10 mg PO DAILY@79903/31/19 04/01/19 History [Provera] Methocarbamol [Robaxin] 500 mg PO TID 03/31/19 04/01/19 History Metoprolol Tartrate [Lopressor] 100 mg PO BID 03/31/19 04/01/19 History Omeprazole 20 mg PO HS 03/31/19 04/01/19 History guaiFENesin-DM 100-10MG/5ML 10 ml PO Q4H PRN 03/31/19 04/01/19 History [Robitussin DM] Allergies Allergy/AdvReac Type Severity Reaction Status Date / Time adhesive tape Allergy Rash/Hives Verified 04/01/19 23:22 cephalexin monohydrate Allergy Rash/Hives Verified 04/01/19 23:22 [From Keflex] Physical Exam Vitals: Vital Signs Temp Pulse Resp BP Pulse Ox 04/02/19 07:00 98.7 F 109 H 14 70/39 99 04/02/19 00:00 98.9 F 109 H 14 69/32 96 Intake and Output 04/01/19 04/02/19 04/02/19 22:59 06:59 14:59 Output Total 250 Balance -250 Output: Urine 250 Other: Voiding Method Indwelling Catheter Weight 127.097 kg In general patient is an responsive at this time HEENT head normocephalic and atraumatic Neck is supple no JVD no goiter no lymphadenopathy Chest exam reveals a scattered crackles bilaterally Cardiac exam reveals regular heart sounds with tachycardia no gallops no murmurs Abdomen is soft nontender no organomegaly with normal bowel sounds Extremity exam reveals minimal edema Assessment and Plan Plan: #1 sepsis, likely related to urinary tract infection and 2 decubitus ulcer #2 recent fall with left hip fracture #3 underlying history of diabetes mellitus #4 underlying history of morbid obesity At this time per patient wishes all medications were discontinued Patient started on comfort care only IV Ativan and IV morphine were ordered Consultation for hospice was initiated
--- NOTE | 2019-04-03 10:21 | P.PN ---
Subjective Progress Note Date: 04/03/19 Jerilyn Valencia is a 79-year-old female well known to my practice, who sustained a fall on 02/22/2019 she came to emergency room and had evidence of acute supple F left femoral neck fracture with impaction and lateral displacement, she was admitted to [facility], she was evaluated by orthopedic surgery and cardiology but was deemed to be high surgical risk, she was transferred to [facility] where she underwent surgery on her left hip and was transferred back to local assisted for rehabilitation, patient developed evidence of urinary tract infection, anemia, and stage I decubitus ulcers on her back, she was transferred back to [facility] and was admitted initially to telemetry floor, however she had evidence of sepsis and was transferred to intensive care unit, patient was started on IV antibiotic, IV fluids, and IV pressors, however after several hours in intensive care unit patient made it clear to her nurse that she does not wish to continue with any of the current treatment including antibiotic, fluids, and pressors, she was requesting to be on Comfort care only. At that time her medications were discontinued and she was transferred to medical floor, consultation with hospice was initiated, patient was started on IV morphine and IV Ativan for comfort. On 04/03/2019 patient is currently resting comfortably in bed family at bedside. Patient remains on morphine drip and hospice care. No signs of distress or labored breathing at this time. We'll await hospice evaluation for further plan of care Objective - Vital Signs Vital signs: Vital Signs Temp 98.7 F 04/02/19 07:00 Pulse 108 H 04/03/19 07:29 Resp 14 04/03/19 10:07 BP 70/39 04/02/19 07:00 Pulse Ox 91 L 04/03/19 07:29 Intake & Output 04/02/19 04/03/19 04/03/19 18:59 06:59 18:59 Intake Total 24.433 Output Total 1000 1000 550 Balance -1000 -975.567 -550 Intake: Intake, IV Titration 24.433 Amount Morphine Sulfate (100 mg/ 24.433 2 ml) 100 mg In Sodium Chloride 0.9% 100 ml @ 1 MG/HR 1.02 mls/hr IV . Q24H [facility] Rx#:[id number] Output: Urine 1000 1000 550 Uretheral (Chan) 550 Other: Voiding Method Indwelling Catheter Indwelling Catheter Indwelling Catheter - Exam In general patient is an responsive at this time HEENT head normocephalic and atraumatic Neck is supple no JVD no goiter no lymphadenopathy Chest exam reveals a scattered crackles bilaterally Cardiac exam reveals regular heart sounds with tachycardia no gallops no murmurs Abdomen is soft nontender no organomegaly with normal bowel sounds Extremity exam reveals minimal edema Assessment and Plan Assessment: #1 sepsis, likely related to urinary tract infection and 2 decubitus ulcer #2 recent fall with left hip fracture #3 underlying history of diabetes mellitus #4 underlying history of morbid obesity At this time per patient wishes all medications were discontinued Patient started on comfort care only IV Ativan and IV morphine were ordered Consultation for hospice was initiated
--- NOTE | 2019-04-03 13:29 | P.CONS ---
History of Present Illness - Reason for Consult Consult date: 04/03/19 Wound care - History of Present Illness This is a 79-year-old patient who is being seen by the wound care center for nonhealing ulcerations to the sacrum. Patient has had the ulcerations for multiple months. She is at this time and comfort care and no aggressive treatment has been done on the ulcerations. Patient is immobile and unable to answer questions due to mental status. Multiple ulcerations to the sacrum and b ilateral groin. Review of Systems Unable to answer due to mental status Past Medical History Past Medical History: Atrial Fibrillation, Cancer, COPD, Diabetes Mellitus, Deep Vein Thrombosis (DVT), Hypertension, Osteoarthritis (OA), Skin Disorder, Sleep Apnea/CPAP/BIPAP, Thyroid Disorder Additional Past Medical History / Comment(s): Hx. of wound rt leg, hx vulvar cancer, gout. History of Any Multi-Drug Resistant Organisms: MRSA Year Discovered:: 2011 MDRO Source:: rt leg wound Past Surgical History: Appendectomy, Cholecystectomy, Tonsillectomy Additional Past Surgical History / Comment(s): tubal , Colonoscopy, D&C. Past Anesthesia/Blood Transfusion Reactions: Postoperative Nausea & Vomiting (PONV) Past Psychological History: No Psychological Hx Reported Smoking Status: Former smoker Past Alcohol Use History: None Reported Additional Past Alcohol Use History / Comment(s): Patient was a smoker and quit 40 years ago. She denies any marijuana, street drug or alcohol use. She currently lives at home with her oldest son and grandson. 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 Past Drug Use History: None Reported - Past Family History Mother Family Medical History: Cancer Additional Family Medical History / Comment(s): colon Father Family Medical History: Cancer Additional Family Medical History / Comment(s): skin Medications and Allergies Home Medications Medication Instructions Recorded Confirmed Type Furosemide [Lasix] 40 mg PO DAILY@0800 08/27/14 04/01/19 History metFORMIN HCL [Glucophage] 500 mg PO BID 08/27/14 04/01/19 History Ergocalciferol (Vitamin D2) 50,000 unit PO CANSECO 02/22/19 04/01/19 History [Drisdol] Levothyroxine Sodium [Synthroid] 75 mcg PO DAILY 02/22/19 04/01/19 History Acetaminophen [Tylenol 8 Hour] 650 mg PO Q6H PRN 03/31/19 04/01/19 History Allopurinol [Zyloprim] 100 mg PO DAILY 03/31/19 04/01/19 History Apixaban [Eliquis] 5 mg PO BID@08,199903/31/19 04/01/19 History Benzocaine/Menthol Lozeng [Cepacol 1 each MUCOUS MEM Q4HR PRN 03/31/19 04/01/19 History lozenge] Budesonide/Formoterol Fumarate 2 puff INHALATION RT-BID 03/31/19 04/01/19 History [Symbicort 80-4.5 Mcg Inhaler] Hydrocodone/Acetaminophen [[place] 1 tab PO Q4HR PRN 03/31/19 04/01/19 History 5-325] Ipratropium-Albuterol Nebulize 3 ml INHALATION RT-Q6H PRN 03/31/19 04/01/19 History [Duoneb 0.5 mg-3 mg/3 ml Soln] Lactobacillus Acidophilus 1 tab PO DAILY@79903/31/19 04/01/19 History [Acidophilus] Loperamide [Imodium] 2 mg PO QID PRN 03/31/19 04/01/19 History Losartan [Cozaar] 25 mg PO DAILY@79903/31/19 04/01/19 History Medroxyprogesterone Acetate 10 mg PO DAILY@0803/31/19 04/01/19 History [Provera] Methocarbamol [Robaxin] 500 mg PO TID 03/31/19 04/01/19 History Metoprolol Tartrate [Lopressor] 100 mg PO BID 03/31/19 04/01/19 History Omeprazole 20 mg PO HS 03/31/19 04/01/19 History guaiFENesin-DM 100-10MG/5ML 10 ml PO Q4H PRN 03/31/19 04/01/19 History [Robitussin DM] Allergies Allergy/AdvReac Type Severity Reaction Status Date / Time adhesive tape Allergy Rash/Hives Verified 04/01/19 23:22 cephalexin monohydrate Allergy Rash/Hives Verified 04/01/19 23:22 [From Keflex] Physical Exam Vitals: Vital Signs Pulse Resp Pulse Ox 04/03/19 10:07 14 04/03/19 07:29 108 H 12 91 L 04/03/19 03:59 12 04/03/19 00:15 12 04/02/19 20:20 16 Intake and Output 04/02/19 04/03/19 04/03/19 22:59 06:59 14:59 Intake Total 24.433 Output Total 1000 550 Balance -975.567 -550 Intake: Intake, IV Titration 24.433 Amount Morphine Sulfate (100 mg/ 24.433 2 ml) 100 mg In Sodium Chloride 0.9% 100 ml @ 1 MG/HR 1.02 mls/hr IV . Q24H [facility] Rx#:[id number] Output: Urine 1000 550 Uretheral (Chan) 550 Other: Voiding Method Indwelling Catheter Indwelling Catheter Indwelling Catheter Physical exam: General Appearance: Alert, cooperative, no distress, appears stated age. Skin: Stage II pressure ulcers to sacrum bilateral groins with exudate and slough noted throughout the wound beds. Excoriation to the periwound is noted. all other Skin color, texture, decreased tugor pale no rashes or lesions. Neurologic: Alert oriented x3 Assessment and Plan (1) Pressure ulcer of sacral region, stage 2 Current Visit: No Status: Acute Code(s): L89.152 - PRESSURE ULCER OF SACRAL REGION, STAGE 2 SNOMED Code(s): 813650727 Plan: Apply zinc. Cream as needed to site. Roll every 2 hours as needed. Assess surface algorithm for appropriate surface for offloading. Thank you for the consultation. Any questions please contact the wound care center DNP note has been reviewed and discussed with Dr. Crockett and the impression and plan of care has been directed as dictated.
[2019-04-03] MEDS ORDERED: MORPHINE CONC SOLN 10mg/0.5mL ORAL SYRG SL PRN (13:46)
[2019-04-03] MEDS ORDERED: LORazepam 0.5 MG TAB SUBLINGUAL PRN (13:49)
[2019-04-03] MEDS: MORPHINE CONC SOLN 10mg/0.5mL ORAL SYRG SL SCH ×4 (14:35→23:57)
[2019-04-04 00:16] VITALS: RESP 16
[2019-04-04 02:03] VITALS: PULSE 109
[2019-04-04] MEDS: MORPHINE CONC SOLN 10mg/0.5mL ORAL SYRG SL SCH ×4 (03:17→14:17)
--- NOTE | 2019-04-04 12:42 | P.DS ---
Providers Date of admission: 04/01/19 22:56 Expected date of discharge: 04/04/19 Attending physician: Manuel Olivarez Primary care physician: Manuel Olivarez [facility] Course: Discharge diagnosis #1 sepsis, likely related to urinary tract infection and 2 decubitus ulcer #2 recent fall with left hip fracture #3 underlying history of diabetes mellitus #4 underlying history of morbid obesity At this time per patient wishes all medications were discontinued Patient started on comfort care only Patient to return to [facility]. Patient to be admitted to [facility] course Jerilyn Valencia is a 79-year-old female well known to my practice, who sustained a fall on 02/22/2019 she came to emergency room and had evidence of acute supple F left femoral neck fracture with impaction and lateral displacement, she was admitted to [facility], she was evaluated by orthopedic surgery and cardiology but was deemed to be high surgical risk, she was transferred to [facility] where she underwent surgery on her left hip and was transferred back to local retirement for rehabilitation, patient developed evidence of urinary tract infection, anemia, and stage I decubitus ulcers on her back, she was transferred back to [facility] and was admitted initially to telemetry floor, however she had evidence of sepsis and was transferred to intensive care unit, patient was started on IV antibiotic, IV fluids, and IV pressors, however after several hours in intensive care unit patient made it clear to her nurse that she does not wish to continue with any of the current treatment including antibiotic, fluids, and pressors, she was requesting to be on Comfort care only. At that time her medications were discontinued and she was transferred to medical floor, consultation with hospice was initiated, patient was started on IV morphine and IV Ativan for comfort. On 04/03/2019 patient is currently resting comfortably in bed family at bedside. Patient remains on morphine drip and hospice care. No signs of distress or labored breathing at this time. We'll await hospice evaluation for further plan of care On 04/04/2019 patient is resting comfortably in bed. Patient has been transitioned over to oral morphine and Ativan. Pain control adequate at this time. Patient to return to [facility] care. I performed an examination of the patient and discussed their management with the Nurse Practitioner. I have reviewed the Nurse Practitioner's notes and agree with the documented findings and plan of care Plan - Discharge Summary Discharge Rx Participant: No New Discharge Prescriptions: New LORazepam [Ativan] 0.5 mg SUBLINGUAL Q4H PRN tab PRN Reason: Agitation Or Acute Anxiety Atropine Ophth Soln 1% 5Ml [Isopto Atropine 1% 5Ml] 2 drops SUBLINGUAL Q4HR PRN bottle PRN Reason: Excess Secretions Discontinued metFORMIN HCL [Glucophage] 500 mg PO BID Furosemide [Lasix] 40 mg PO DAILY@0800 Ergocalciferol (Vitamin D2) [Drisdol] 50,000 unit PO CANSECO Levothyroxine Sodium [Synthroid] 75 mcg PO DAILY Loperamide [Imodium] 2 mg PO QID PRN PRN Reason: Diarrhea Ipratropium-Albuterol Nebulize [Duoneb 0.5 mg-3 mg/3 ml Soln] 3 ml INHALATION RT-Q6H PRN PRN Reason: Shortness Of Breath Hydrocodone/Acetaminophen [[place] 5-325] 1 tab PO Q4HR PRN PRN Reason: Pain Benzocaine/Menthol Lozeng [Cepacol lozenge] 1 each MUCOUS MEM Q4HR PRN PRN Reason: Sore Throat Acetaminophen [Tylenol 8 Hour] 650 mg PO Q6H PRN PRN Reason: Pain Methocarbamol [Robaxin] 500 mg PO TID Metoprolol Tartrate [Lopressor] 100 mg PO BID Budesonide/Formoterol Fumarate [Symbicort 80-4.5 Mcg Inhaler] 2 puff INHALATION RT-BID Apixaban [Eliquis] 5 mg PO BID@0800,2000 Medroxyprogesterone Acetate [Provera] 10 mg PO DAILY@0800 Omeprazole 20 mg PO HS Allopurinol [Zyloprim] 100 mg PO DAILY Losartan [Cozaar] 25 mg PO DAILY@0800 Lactobacillus Acidophilus [Acidophilus] 1 tab PO DAILY@0800 guaiFENesin-DM 100-10MG/5ML [Robitussin DM] 10 ml PO Q4H PRN PRN Reason: Cough Discharge Medication List Atropine Ophth Soln 1% 5Ml [Isopto Atropine 1% 5Ml] 2 drops SUBLINGUAL Q4HR PRN bottle 04/04/19 [Rx] LORazepam [Ativan] 0.5 mg SUBLINGUAL Q4H PRN tab 04/04/19 [Rx] Activity/Diet/Wound Care/Special Instructions: Patient being D/C to [facility]
[2019-04-04 13:28] VITALS: BMI 51.2
== END 2019-04-04 15:13 | disposition still patient (30) | DRG 872 ==
LOC: 2SICU 22:56 → 4SSUR 04-02 10:32
PROVIDERS: ADMIT Internal Medicine; ATTEND Internal Medicine
DX: A41.9 Sepsis, unspecified organism (principal); N39.0 Urinary tract infection, site not specified; Z68.43 Body mass index [BMI] 50.0-59.9, adult; I48.91 Unspecified atrial fibrillation; E11.9 Type 2 diabetes mellitus without complications; J44.9 Chronic obstructive pulmonary disease, unspecified; M19.90 Unspecified osteoarthritis, unspecified site; Z51.5 Encounter for palliative care; E66.01 Morbid (severe) obesity due to excess calories; D64.9 Anemia, unspecified; L89.152 Pressure ulcer of sacral region, stage 2; M10.9 Gout, unspecified; I10 Essential (primary) hypertension; G47.33 Obstructive sleep apnea (adult) (pediatric); S72.002D Fracture of unspecified part of neck of left femur, subsequent encounter for closed fracture with routine healing; W18.30XD Fall on same level, unspecified, subsequent encounter; Z88.1 Allergy status to other antibiotic agents; Z91.048 Other nonmedicinal substance allergy status; Z79.890 Hormone replacement therapy; Z79.84 Long term (current) use of oral hypoglycemic drugs; Z79.51 Long term (current) use of inhaled steroids; Z79.01 Long term (current) use of anticoagulants; Z79.891 Long term (current) use of opiate analgesic; Z79.899 Other long term (current) drug therapy; Z85.44 Personal history of malignant neoplasm of other female genital organs; Z86.718 Personal history of other venous thrombosis and embolism; Z86.14 Personal history of Methicillin resistant Staphylococcus aureus infection; Z87.81 Personal history of (healed) traumatic fracture; Z90.89 Acquired absence of other organs; Z98.890 Other specified postprocedural states; Z87.891 Personal history of nicotine dependence; Z80.0 Family history of malignant neoplasm of digestive organs